=== PATIENT | female | born 1990 | race Caucasian/White ===

== ENCOUNTER 2022-09-24 08:00 | Outpatient (OUT) | payer OTHER, SELFPAY ==
--- NOTE | 2022-09-24 08:15 | US_ITS ---
[address] [address] Patient Name: AGUSTIN DEAN MRN: [id number] date: 1990 Sex: F Assigned Patient Location: US Current Patient Location: Accession/Order Number: [id number] Exam Date: 09/24/2022 08:15 Report Date: 09/25/2022 02:11 At the request of: ADELSO PEDERSON Procedure: US pelvis w/ transvaginal EXAMINATION: US pelvis w/ transvaginal HISTORY: Menorrhagia with irregular cycle N92.1 COMPARISON: No relevant comparison available. TECHNIQUE: Transabdominal and/or transvaginal sonographic examination was performed as indicated by examination type. FINDINGS: UTERUS: Short sensation of endometrium at fundus. 1.2 cm hypoechoic mass within fundal myometrium favoring a leiomyoma. Uterus size: 10.1 x 6.6 x 5.3 cm ENDOMETRIUM: Normal homogeneous appearance. Endometrial thickness: 11 mm RIGHT OVARY: Normal size and appearance. Duplex Doppler demonstrates normal waveform and flow; resistive index 0.5. Ovary size: 3.7 x 1.4 x 1.8 cm. LEFT OVARY: Contains a complex cystic area 1.5 cm in diameter. Duplex Doppler demonstrates normal waveform and flow; resistive index 0.6. Ovary size: 4.0 x 1.9 x 2.2 cm. CUL-DE-SAC: Trace amount of free fluid. BLADDER: Unremarkable. OTHER: None. US/US pelvis w/ transvaginal IMPRESSION: 1. Mildly septated uterus. 2. Left ovary contains a 1.5 cm slightly complex cyst; possibly collapsing follicle. 3. Small fundal myometrial leiomyoma. 4. No specific findings to account for patient's symptoms. Electronically authenticated by: CINDY ARECHIGA Date: 09/25/2022 02:11
[2022-09-24 09:10] LABS: Basophils Percent Auto 0.4 % (0.2-2.0); Eosinophils Absolute Auto 0.1 10^3/uL (0.0-0.7); Hematocrit 34.9 % (36.0-48.0); Hemoglobin 12.2 g/dL (12.0-16.0); Immature Granulocytes Abs Auto 0.02 10^3/uL (0.00-0.03); Immature Granulocytes Pct Auto 0.3 % (0.0-0.5); Lymphocytes Absolute Auto 2.4 10^3/uL (1.2-3.8); Lymphocytes Percent Auto 34.4 % (20.5-60.0); Mean Corpuscular Volume 91.6 fL (81.0-99.0); Monocytes Absolute Auto 0.6 10^3/uL (0.3-0.8); Monocytes Percent Auto 8.1 % (1.7-12.0); Neutrophils Absolute Auto 3.8 10^3/uL (1.4-6.5); Neutrophils Percent Auto 54.8 % (43.0-75.0); Platelet Count 184 10^3/uL (150-450); Red Blood Count 3.81 10^6/uL (4.20-5.40); Red Cell Distribution Width 12.1 % (11.0-15.0)
[2022-09-24 09:25] LABS: Estimated Average Glucose 97 mg/dL
[2022-09-24 09:27] LABS: INR 1.04; Partial Thromboplastin Time 27.4 sec (22.3-36.2)
[2022-09-24 09:45] LABS: HCG Quantitative <1 mIU/mL; Thyroid Stimulating Hormone 1.204 uIU/mL (0.358-3.740)
== END 2022-09-24 08:01 | disposition home or self-care (01) ==
PROVIDERS: PCP Obstetrics & Gynecology; Visit Provider Obstetrics & Gynecology
DX: N92.1 Excessive and frequent menstruation with irregular cycle (principal)
CPT/HCPCS: 36415; 76830; 76856; 83036; 84443; 84702; 85025; 85610; 85730

== ENCOUNTER 2022-11-23 19:14 | Outpatient (REF) | payer OTHER, SELFPAY ==
[2022-11-29 11:09] LABS: Age Gdln ACOG Testing Note (.); HPV Aptima Negative (Negative); IGP, Aptima HPV, rfx 16/18,45 Note (.)
== END 2022-11-23 19:15 | disposition home or self-care (01) ==
LOC: LAB 19:14
PROVIDERS: PCP Obstetrics & Gynecology; Visit Provider Obstetrics & Gynecology
DX: Z01.419 Encounter for gynecological examination (general) (routine) without abnormal findings (principal)
CPT/HCPCS: 87624; G0145

== ENCOUNTER 2023-11-29 19:13 | Outpatient (REF) | payer OTHER, SELFPAY ==
[2023-12-07 04:08] LABS: Age Gdln ACOG Testing Note (.); HPV Aptima Positive (Negative); HPV Genotype 16 Positive (Negative); HPV Genotype 18,45 Negative (Negative); IGP, Aptima HPV, rfx 16/18,45 Note (.)
== END 2023-11-29 19:14 | disposition home or self-care (01) ==
LOC: LAB 19:13
PROVIDERS: PCP Obstetrics & Gynecology; Visit Provider Obstetrics & Gynecology
DX: Z01.419 Encounter for gynecological examination (general) (routine) without abnormal findings (principal)
CPT/HCPCS: 87624; 88175

== ENCOUNTER 2024-12-02 20:13 | Outpatient (REF) | payer OTHER, SELFPAY ==
--- OUTSIDE RECORDS SUMMARY | 2024-12-02 20:16 | XMS_ITS | CCD ---
Author Organization [facility] Care Team Providers Care [place] [employer] Name Role Phone NGOZI SOLIS Attending Unavailable NGOZI SOLIS Consulting Unavailable NGOZI SOLIS Admitting Unavailable Sobeida Claire Unavailable Ky Fox MD Primary Care Provider [phone] DYANA ALEJO Attending Unavailable Shoaib STUDIO HAND-TRUCK SUPERVISOR, Jered L Primary Care Provider SHOAIB, JERED L Referring Unavailable SHOAIB, JERED L Primary Care Unavailable SHOAIB, JERED L Primary Care Unavailable ARSALAN BURCIAGA Attending Unavailable SHOAIB, JERED L Referring Unavailable SHOAIB, JERED L Primary Care Unavailable SHOAIB, JERED L Referring Unavailable SHOAIB, JERED L Primary Care Unavailable SHOAIB, JERED L Referring Unavailable SHOAIB, JERED L Primary Care Unavailable SHOAIB, JERED L Referring Unavailable SHOAIB, JERED L Primary Care Unavailable Shoaib STUDIO HAND-TRUCK SUPERVISOR, Jered L Primary Care Provider SHOAIB, JERED L Attending Unavailable SHOAIB, JERED L Referring Unavailable SHOAIB, JERED L Primary Care Unavailable SHOAIB, JERED L Attending Unavailable SHOAIB, JERED L Referring Unavailable SHOAIB, JERED L Primary Care Unavailable SHOAIB, JERED L Attending Unavailable SHOAIB, JERED L Referring Unavailable SHOAIB, JERED L Primary Care Unavailable Ky Fox MD Primary Care Provider Allergies Allergy Classification Reported Allergen(s) Allergy Type Date of Onset Reaction(s) Facility (4 sources) Penicillins; Translations: [PENICILLINS] Drug allergy (disorder) 4 [facility] (8 sources) Penicillin G Drug Allergy 2 unknown [facility] Work Phone: (7 sources) Penicillins Propensity to adverse reactions 3 [facility] (6 sources) Penicillin; Translations: [PENICILLIN] Drug Allergy 2 [facility] Work Phone: (2 sources) Penicillins Propensity to adverse reactions to drug 2 [facility] [place] [facility] (1 source) Penicillins Propensity to adverse reactions to drug 2 [facility] Medications Current Medications Medication Drug Class(es) Dates Sig (Normalized) Sig (Original) levonorgestrel 0.842179 mg/hr intrauterine system (9 sources) Progestin, Progestin-containi ng Intrauterine Device Start: 11-23-2022 Levonorgestrel intrauterine device 52 mg levonorgestreL ( MIRENA) 21 mcg/24hr (up to 8 yrs) 52 mg IUD 1 each by intrauterine route once. Inserted Nov Active lidocaine 0.05 mg/mg medicated patch (3 sources) Antiarrhythmic, Amide Local Anesthetic Start: 02-01-2024 apply 1 dose transdermal route once daily, then apply 1 dose transdermal route every twelve hours lidocaine (LIDODERM) 5 % Place 1 patch on the skin daily. Remove & Discard patch within 12 hours or as directed by MD 30 patch 02/01/2024 Active naproxen sodium 550 mg oral tablet (1 source) Nonsteroidal Anti-inflammatory Drug Start: 02-01-2024 End: 02-16-2024 take 1 tablet by mouth once in the morning, then take 1 tablet by mouth at mealtime naproxen sodium (ANAPROX DS) 550 mg tablet Take 1 tablet (550 mg total) by mouth in the morning and 1 tablet (550 mg total) in the evening. Take with meals. Do all this for 30 doses. 30 tablet 02/01/2024 02/16/2024 Active 12 hr orphenadrine citrate 100 mg extended release oral tablet (1 source) Muscle Relaxant Start: 02-01-2024 End: 02-16-2024 take 1 tablet by mouth in the morning, then take 1 tablet by mouth every twelve hours at bedtime orphenadrine (NORFLEX) 100 mg 12 hr tablet Take 1 tablet (100 mg total) by mouth in the morning and 1 tablet (100 mg total) before bedtime. Do all this for 30 doses. 30 tablet 02/01/2024 02/16/2024 Active Problems Active Problems Problem Classification Problem Date Documented Date Episodic/Chronic Abdominal pain (2 sources) Suprapubic pain; Translations: [Pelvic and perineal pain] Onset: 07-25-2024 07-26-2024 Episodic Genitourinary symptoms and ill-defined conditions (5 sources) Urinary symptoms ; Translations: [Unspecified symptoms and signs involving the genitourinary system] Onset: 11-03-2021 11-03-2021 Episodic Other skin disorders (2 sources) Multiple skin tags; Translations: [Other hypertrophic disorders of the skin] 03-05-2024 Episodic Unclassified (1 source) Low back pain, unspecified; Translations: [Low back pain, unspecified] Onset: 03-01-2024 Unclassified (1 source) Annual Exam Onset: 03-01-2024 Urinary tract infections (1 source) Urinary tract infectious disease Onset: 07-25-2024 Episodic Past or Other Problems Problem Classification Problem Date Documented Da te Episodic/Chronic Fracture of lower limb (1 source) Fracture of unspecified metatarsal bone(s), left foot, subsequent encounter for fracture with routine healing Onset: 04-06-2021 Resolved: 04-06-2021 Episodic Immunizations and screening for infectious disease (6 sources) Contact with and (suspected) exposure to other viral communicable diseases; Translations: [Influenza vaccination given] Onset: 01-15-2020 03-01-2024 Episodic Inflammatory diseases of female pelvic organs (3 sources) Vaginitis; Translations: [Acute vaginitis] Onset: 11-03-2021 11-03-2021 Episodic Mood disorders (2 sources) Mood disorders Onset: 03-01-2024 Resolved: 07-25-2024 03-01-2024 Other connective tissue disease (1 source) Pain in left foot Onset: 04-06-2021 Resolved: 04-06-2021 Episodic Other screening for suspected conditions (not mental disorders or infectious disease) (2 sources) Patient encounter status; Translations: [Encounter for screening for malignant neoplasm of skin] Onset: 03-01-2024 03-01-2024 Episodic Other skin disorders (1 source) Other hypertrophic disorders of the skin; Translations: [Other hypertrophic disorders of the skin] Onset: 03-01-2024 Episodic Spondylosis; intervertebral disc disorders; other back problems (7 sources) Acute back pain with sciatica; Translations: [Lumbago with sciatica, right side] Onset: 02-01-2024 02-05-2024 Episodic Unclassified (1 source) Patient encounter status 03-05-2024 Results Test Name Value Interpretation Reference Range Facility POCT , urineon 07-14 Beta HCG ( test) Ql (U) Negative [facility] POCT urinalysis dipstick onl yon 07-25-2024 Appearance (U) clear [facility] External Poct Urine Bilirubin Negative [facility] External Poct Urine Blood Negative [facility] External Poct Urine Color yellow [facility] External Poct Urine Glucose Negative [facility] External Poct Urine Ketones Negative [facility] External Poct Urine Leukocyte Esterase Negative [facility] External Poct Urine Nitrite Negative [facility] External Poct Urine Ph 7 Pr [facility] External Poct Urine Protein Negative [facility] External Poct Urine Specific [place] 1.015 [facility] External Poct Urine Urobilinogen 0.2 [facility] COMPREHENSIVE METABOLIC PANE João 03-01-2024 Albumin [Mass/Vol] 4.5 g/dL Normal 3.2-5.3 [facility] Comment on above: Performed By: #### Jenny MEDINA, 25610-7 #### [facility] ([id number]) [address], [address] [place] [address] ALP [Catalytic activity/Vol] 45 U/L Normal 39-130 [facility] Comment on above: Performed By: #### Jenny MEDINA, 84666-9 #### [facility] ([id number]) [address], [address] [place] [address] ALT [Catalytic activity/Vol] 12 U/L Normal 0-31 [facility] Comment on above: Performed By: #### Jenny MEDINA, 18744-4 #### [facility] ([id number]) [address], [address] [place] [address] Anion gap [Moles/Vol] 9 mmol/L Normal 5-15 [facility] Comment on above: Performed By: #### Jenny MEDINA, 72164-1 #### [facility] ([id number]) [address], [address] [place] [address] AST [Catalytic activity/Vol] 19 U/L Normal 0-41 [facility] Comment on above: Performed By: #### Jenny MEDINA, 75209-7 #### [facility] ([id number]) [address] [place] [address] Bilirubin [Mass/Vol] 0.7 mg/dL Normal 0.3-1.2 [facility] Comment on above: Performed By: #### Jenny MEDINA 94006-9 #### [facility] ([id number]) [address] [place] [address] Calcium [Mass/Vol] 9.6 mg/dL Normal 8.5-10.5 [facility] Comment on above: Performed By: #### Jenny MEDINA 65640-0 #### [facility] ([id number]) [address] [place] [address] Chloride [Moles/Vol] 106 mmol/L Normal 98-109 [facility] Comment on above: Performed By: #### Jenny MEDINA 84608-0 #### [facility] ([id number]) [address], [address] [place] [address] CO2 [Moles/Vol] 25 mmol/L Normal 22-32 [facility] Comment on above: Performed By: #### Jenny MEDNIA, 16267-5 #### [facility] ([id number]) [address] [place] [address] Creatinine [Mass/Vol] 0.69 mg/dL Normal 0.40-1.00 [facility] Comment on above: Result Comment: METH OD TRACEABLE TO IDMS STANDARD Performed By: #### Jenny MEDINA, 43212-6 #### [facility] ([id number]) [address], [address] [place] [address] eGFR (CKD-EPI) NON-RACE DEPENDENT >90 Normal >59 [facility] Comment on above: Result Comment: Reported eGFR is based on the CKD-EPI 2020 equation that does not use a race coefficient. Performed By: #### Jenny MEDINA, 36667-1 #### [facility] ([id number]) [address], [address] [place] [address] Glucose [Mass/Vol] 80 mg/dL Normal 65-99 [facility] Comment on above: Performed By: #### Jenny MEDINA 10099-4 #### [facility] ([id number]) [address], [address] [place] [address] Potassium [Moles/Vol] 3.9 mmol/L Normal 3.5-5.0 [facility] Comment on above: Performed By: #### Jenny MEDINA, 31837-4 #### [facility] ([id number]) [address], [address] [place] [address] Protein [Mass/Vol] 6.8 g/dL Normal 6.0-8.0 [facility] Comment on above: Performed By: #### Jenny MEDINA 25321-9 #### [facility] ([id number]) [address], [address] [place] [address] Sodium [Moles/Vol] 140 mmol/L Normal 134-146 [facility] Comment on above: Performed By: #### Jenny MEDINA 96778-0 #### [facility] ([id number]) [address], [address] [place] [address] Urea nitrogen [Mass/Vol] 18 mg/dL Normal 5-23 [facility] Comment on above: Performed By: #### Jenny MEDINA 22363-5 #### [facility] ([id number]) [address] [address] [facility] [facility] [address] [place] [address] Comprehensive metabolic pane joão 03-01-2024 Albumin [Mass/Vol] 4.5 g/dL 3.2 - 5.3 g/dL [facility] ALP [Catalytic activity/Vol] 45 U/L 39 - 130 U/L [facility] ALT No additional P-5'-P [Catalytic activity/Vol] 12 U/L 0 - 31 U/L [facility] Anion gap [Moles/Vol] 9 mmol/L 5 - 15 mmol/L [facility] AST [Catalytic activity/Vol] 19 U/L 0 - 41 U/L [facility] Bilirubin [Mass/Vol] 0.7 mg/dL 0.3 - 1 .2 mg/dL [facility] Calcium [Mass/Vol] 9.6 mg/dL 8.5 - 10. 5 mg/dL [facility] Chloride [Moles/Vol] 106 mmol/L 98 - 10 9 mmol/L [facility] CO2 [Moles/Vol] 25 mmol/L 22 - 32 mmol/L [facility] Creatinine [Mass/Vol] 0.69 mg/dL 0.40 - 1.00 mg/dL [facility] Comment on above: METHOD TRACEABLE TO IDID STANDARD eGFR (CKD-EPI)non-race dependent - PINF [facility] Comment on above: Reported eGFR is based on the CKD-EPI 2020 equation that does not use a race coefficient. Glucose [Mass/Vol] 80 mg/dL 65 - 99 mg/dL [facility] Potassium [Moles/Vol] 3.9 mmol/L 3.5 - 5.0 mmol/L [facility] Protein [Mass/Vol] 6.8 g/dL 6.0 - 8.0 g/dL [facility] Sodium [Moles/Vol] 140 mmol/L 134 - 146 mmol/L [facility] Urea nitrogen [Mass/Vol] 18 mg/dL 5 - 23 mg/dL [facility] Lipid 1996 panelon Cholesterol [Mass/Vol] 171 mg/dL 150 - 200 mg/dL [facility] Cholesterol in HDL [Mass/Vol] 68 mg/dL 39 - PINF mg/dL [facility] Comment on above: HDL <40 mg/dL - High Risk HDL > or = 40mg/dL- Desirable HDL >60 mg/dL - Negative Risk Cholesterol in LDL [Mass/Vol] 98 mg/dL NINF - 130 mg/dL [facility] Comment on above: LDL <100 mg/dL - Desirable LDL >160 mg/dL - High Risk Cholesterol in VLDL [Mass/Vol] 5 mg/dL 0 - 30 mg/dL [facility] Cholesterol.total/Chol esterol in HDL [Mass ratio] 2.5 {ratio} 1.0 - 5.0 [facility] Triglyceride [Mass/Vol] 27 mg/dL 27 - 150 mg/dL [facility] Cholesterol [Mass/Vol] 171 mg/dL Normal 150-200 [facility] Comment on above: Performed By: [place], [address]-2 #### [facility] ([id number]) [address] [place] [address] Cholesterol in HDL [Mass/Vol] 68 mg/dL Normal >39 [facility] Comment on above: Result Comment: HDL <40 mg/dL - High Risk HDL > or = 40mg/dL- Desirable HDL >60 mg/dL - Negative Risk Performed By: ###[place], [address]-8 #### [facility] ([id number]) [address] [facility] [address] [place] [address] Cholesterol in LDL [Mass/Vol] 98 mg/dL Normal <130 [facility] Comment on above: Result Comment: LDL <100 mg/dL - Desirable LDL >160 mg/dL - High Risk Performed By: #### C ADAM, 17475-9 #### [facility] ([id number]) [address], [facility] [address] [place] [address] Cholesterol in VLDL [Mass/Vol] 5 mg/dL Normal 0-30 [facility] Comment on above: Performed By: #### Jenny MEDINA, 73448-6 #### [facility] ([id number]) [address] [address] [place] [address] CHOLESTEROL:HDL 2.5 Normal 1.0-5.0 [facility] Comment on above: Performed By: #### Jenny MEDINA, 55329-1 #### [facility] ([id number]) [address], [facility] [address] [place] [address] Triglyceride [Mass/Vol] 27 mg/dL Normal 27-150 [facility] Comment on above: Performed By: #### Jenny MEDINA, 94171-9 #### [facility] ([id number]) [address], [address] [address] No Panel Informationon 03-01 [facility] XR Lumbar spine 2 or 3 Views on 02-02-2024 EXAM: XR SPINE LUMBAR 2 OR 3 VWS CLINICAL INFORMATION: Acute right-sided low back pain with right-sided sciatica. COMPARISON: None. FINDINGS: The lumbar spine maintains a normal lordotic curvature. There is no malalignment within the lumbar spine. There is no significant loss of the vertebral body heights. There is no evidence for an acute displaced fracture. There is localized mild loss of the L5-S1 disc space height. IMPRESSION: 1. No evidence for an acute displaced fracture of the lumbar spine. 2. Localized mild loss of the L5-S1 disc space height. Finalized by Srinath Myrick MD on 02/02/2024 1:24 PM [facility] Srinath Myrick MD - 02/02/2024 EXAM: XR SPINE LUMBAR 2 OR 3 VWS CLINICAL INFORMATION: Acute right-sided low back pain with right-sided sciatica. COMPARISON: None. FINDINGS: The lumbar spine maintains a normal lordotic curvature. There is no malalignment within the lumbar spine. There is no significant loss of the vertebral body heights. There is no evidence for an acute displaced fracture. There is localized mild loss of the L5-S1 disc space height. IMPRESSION: 1. No evidence for an acute displaced fracture of the lumbar spine. 2. Localized mild loss of the L5-S1 disc space height. Finalized by Srinath Myrick MD on 02/02/2024 1:24 PM [facility] Study observation (narrative) [facility] XR Lumbar spine 2 or 3 Views Ordered By: Srinath Myrick on 02-02-2024 [facility] Work Phone: XR SPINE LUMBAR 2 OR 3 VWSon 02-02-2024 XR SPINE LUMBAR 2 OR 3 VWS XR SPINE LUMBAR 2 OR 3 VWS EXAM: XR SPINE LUMBAR 2 OR 3 VWS CLINICAL INFORMATION: Acute right-sided low back pain with right-sided sciatica. COMPARISON: None. FINDINGS: The lumbar spine maintains a normal lordotic curvature. There is no malalignment within the lumbar spine. There is no significant loss of the vertebral body heights. There is no evidence for an acute displaced fracture. There is localized mild loss of the L5-S1 disc space height. IMPRESSION: 1. No evidence for an acute displaced fracture of the lumbar spine. 2. Localized mild loss of the L5-S1 disc space height. Finalized by Srinath Myrick MD on 02/02/2024 1:24 PM Normal [facility] HCG ( test) Ql (U)o n 02-01-2024 Beta HCG ( test) Ql (U) Negative Normal NEG [facility] Comment on above: Performed By: #### 2 106-3 #### [facility] ([id number]) [address] [place] [address] [place] [address] URN MACROSCOPIC NURon 2023 BILIRUBIN CHRIS Negative Normal NEG [facility] Comment on above: Performed By: #### N UM #### [facility] ([id number]) [address] [place] [address] [place] [address] BLOOD/HGB CHRIS Negative Normal NEG [facility] Comment on above: Performed By: #### N UM #### [facility] ([id number]) [address] [place] [address] [place] [address] GLUCOSE CHRIS Negative Normal NEG [facility] Comment on above: Performed By: #### N UM #### [facility] ([id number]) [address] [place] [address] [place] [address] KETONES CHRIS Negative Normal NEG [facility] Comment on above: Performed By: #### N UM #### [facility] ([id number]) [address] [place] [address] [place] [address] LEUKOCYTE ESTERASE CHRIS Negative Normal NEG [facility] Comment on above: Performed By: #### N UM #### [facility] ([id number]) [address] [place] [address] [place] [address] NITRITE CHRIS Negative Normal NEG [facility] Comment on above: Performed By: #### N UM #### [facility] ([id number]) [address] [place] [address] [place] [address] PH CHRIS 7.0 Normal 5.0-8.5 [facility] Comment on above: Performed By: #### N UM #### [facility] ([id number]) [address] [place] [address] [place] [address] PROTEIN CHRIS Negative Normal NEG [facility] Comment on above: Performed By: #### N UM #### [facility] ([id number]) [address] [place] [address], [place] [address] SPECIFIC GRAVITY CHRIS 1.015 Normal 1.003-1.035 [facility] Comment on above: Performed By: #### N UM #### [facility] ([id number]) [address] [facility], [place] [address] UROBILINOGEN CHRIS 0.2 eu/dL Normal <1.1 [facility] Comment on above: Performed By: #### N UM #### [facility] ([id number]) [address] [facility], [place] [address] IGP,APTIMA HPV,AGE GDLNon AGE GDLN ACOG TESTING Note . [facility] Comment on above: TESTS RESULT FLAG UN ITS REF RANGE LAB Clinician Provided Cytology Information Source.............Cervix;Endocervix No. of containers..01 ThinPrep Vial Age Algo ACOG Clari... FLAG LEGEND: L-Low Normal,H-High Normal,LL-Alert Low,HH-Alert High <-Panic Low,>-Panic High,A-Abnormal,AA-Critical Abnormal Performed at: 01 =[address] [facility] [place] [address] Fany Adair MD, HPV APTIMA Positive Abnormal Negative [facility] Comment on above: This nucleic acid am plification test detects fourteen high- risk HPV types (16,18,31,33,35,39,45,51,52,56,58,59,66,68) without differentiation. HPV GENOTYPE 16 Positive Abnormal Negative [facility] HPV GENOTYPE 18,45 Negative Negative [facility] Comment on above: Performed at: =G - [facility] [address] [id number] [employer]: Fany Adair MD, Phone: [phone] Performed at: WB - [facility] [address] [id number] [employer]: Fany Adair MD, Phone: [phone] IGP, APTIMA HPV, RFX 16/18,45 Note . [facility] Comment on above: TESTS RESULT FLAG U NITS REF RANGE LAB DIAGNOSIS: 02 NEGATIVE FOR INTRAEPITHELIAL LESION OR MALIGNANCY. Specimen adequacy: 02 Satisfactory for evaluation. Endocervical and/or squamous metaplastic cells (endocervical component) are present. Performed by: Pedro Joseph, Air Traffic Coordinator (ASCP) . 02 Note: Note 02 The Pap smear is a screening test designed to aid in the detection of premalignant and malignant conditions of the uterine cervix. It is not a diagnostic procedure and should not be used as the sole means of detecting cervical cancer. Both false-positive and false-negative reports do occur. Test Methodology: Note 02 This liquid based ThinPrep(R) pap test was screened with the use of an image guided system. HPV Genotype Reflex Note 02 Criteria met, see HPV Genotype results. FLAG LEGEND: L-Low Normal,H-High Normal,LL-Alert Low,HH-Alert High <-Panic Low,>-Panic High,A-Abnormal,AA-Critical Abnormal Performed at: [address] [address] Fany Adair MD, Interpretation and review of laboratory results Abnormal [facility] BRUSH-SPATULA CERVIX ENDOCERVIX [facility] No Panel InformationOrdered By: Lulu Gaona on 11-29-2023 Interpretation and review of laboratory results Abnormal [facility] XR foot LT min 3V*on 022 XR foot LT min 3V* [facility] [place] [address] XRay Report Signed Patient: Jeannine Raygoza MR#: [id number] 39 : 1990 Acct:[id number] Age/Sex: 30 / F ADM Date: 04/06/21 Loc: [facility] Room: Type: [facility] Attending Dr: Sobeida MARIE Ordering Provider: LAZARO Jara Date of Service: 04/06/21 XR/XR foot LT min 3V*: Closed fracture of base of metatarsal bone of left foot with Copies to: LAZARO Jara XR foot LT min 3V* 04/06/2021 8:28 AM SIGNS AND SYMPTOMS: Status post left foot fifth metatarsal fracture, follow-up PROTOCOL: Frontal, lateral, and oblique radiographs of the left foot COMPARISON: 03/16/2021 FINDINGS: There is redemonstration of a tiny bony fragment separate from the tip of the base of the fifth metatarsal with mild bony bridging suggesting slight interval healing. There is decreasing soft tissue swelling over the lateral aspect of the foot. XR/XR foot LT min 3V* IMPRESSION: There is redemonstration of a tiny bony fragment separate from the tip of the base of the fifth metatarsal with mild bony bridging suggesting slight interval healing. Impression dictated by: Angel Blacmkon M.D.04/06/2021 12:19 PM Dictation Location: [place] [address] Transcribed By: [facility] 04/06/21 1219 Dictated By: Angel Blackmon II, MD 04/06/21 1215 Signed By: 04/06/21 121 Normal [facility] XR foot LT min 3V* [facility] [email or web address] Other XR foot LT min 3V* [facility] [employer] Other XR foot LT min 3V* [address] [place] [address] [employer] Other XR foot LT min 3V* [place] [address] [employer] Other XR foot LT min 3V* XRay Report [employer] Other XR foot LT min 3V* Signed [employer] Other XR foot LT min 3V* Patient: Jeannine Raygoza MR#: [id number] [employer] Services Other XR foot LT min 3V* 41 [employer] Other XR foot LT min 3V* : 1990 Acct:[id number] [employer] Other XR foot LT min 3V* Age/Sex: 30 / F ADM Date: 04/06/21 [employer] Other XR foot LT min 3V* Loc: [facility] Room: Type: [facility] [employer] Other XR foot LT min 3V* Attending Dr: Sobeida WADDELLC [employer] Other XR foot LT min 3V* Ordering Provider: LAZARO Jara [employer] Other XR foot LT min 3V* Date of Service: 04/06/21 [employer] Other XR foot LT min 3V* XR/XR foot LT min 3V*: Closed fracture of base of metatarsal bone of left [employer] Other XR foot LT min 3V* foot with [employer] Other XR foot LT min 3V* Copies to: MALA Jara-C [employer] Other XR foot LT min 3V* XR foot LT min 3V* 04/06/2021 8:28 AM [employer] Other XR foot LT min 3V* SIGNS AND SYMPTOMS: Status post left foot fifth metatarsal fracture, follow-up [employer] Other XR foot LT min 3V* PROTOCOL: Frontal, lateral, and oblique radiographs of the left foot [employer] Other XR foot LT min 3V* COMPARISON: 03/16/2021 [employer] Other XR foot LT min 3V* FINDINGS: [employer] Other XR foot LT min 3V* There is redemonstration of a tiny bony fragment separate from the tip of the base of the fifth [employer] Other XR foot LT min 3V* metatarsal with mild bony bridging suggesting slight interval healing. There is decreasing soft [employer] Other XR foot LT min 3V* tissue swelling over the lateral aspect of the foot. [employer] Other XR foot LT min 3V* XR/XR foot LT min 3V* [employer] Other XR foot LT min 3V* IMPRESSION: [employer] Other XR foot LT min 3V* metatarsal with mild bony bridging suggesting slight interval healing. [employer] Other XR foot LT min 3V* Impression dictated by: Angel Blackmon M.D.04/06/2021 12:19 PM [employer] Other XR foot LT min 3V* Dictation Location: [place] [address] [employer] Other XR foot LT min 3V* Transcribed By: SUSI 04/06/21 1219 [employer] Other XR foot LT min 3V* Dictated By: Angel Blackmon II, MD 04/06/21 1215 [employer] Other XR foot LT min 3V* Signed By: [employer] Other XR foot LT min 3V* 04/06/21 1219 [facility] [employer] Other XR foot LT min 3V*on 022 XR foot LT min 3V* [facility] [place] [address] [place] [address] XRay Report Signed Patient: Jeannine Raygoza MR#: [id number] 39 : 1990 Acct:[id number] Age/Sex: 30 / F ADM Date: 03/16/21 Loc: [facility] Room: Type: [facility] Attending Dr: Sobeida WADDELLC Ordering Provider: LAZARO Jara Date of Service: 03/16/21 XR/XR foot LT min 3V*: Closed fracture of base of metatarsal bone of left foot, ini Copies to: LAZARO Jara LEFT FOOT - 3 views COMPARISON: Left foot 03/02/2021 Reason for exam: Follow-up left fifth metatarsal fracture. The chip fracture involving the base of the fifth metatarsal is unchanged in alignment and healing when compared to the prior study. No new fractures. No focal soft tissue abnormality. XR/XR foot LT min 3V* IMPRESSION: NO SIGNIFICANT CHANGE IN FRACTURE FINDINGS. Impression dictated by: Vlad Ordonez Jr., D.O.03/16/2021 12:10 PM Dictation Location: [facility] Transcribed By: [facility] 03/16/21 1210 Dictated By: Vlad Ordonez Jr, DO 03/16/21 1209 Signed By: 03/16/21 1210 [facility] XR foot LT min 3V*on 022 XR foot LT min 3V* [facility] [place] [address] XRay Report Signed Patient: Jeannine Raygoza MR#: [id number] 39 : 1990 Acct:[id number] Age/Sex: 30 / F ADM Date: 03/02/21 Loc: [facility] Room: Type: [facility] Attending Dr: Sobeida MARIE Ordering Provider: LAZARO Jara Date of Service: 03/02/21 XR/XR foot LT min 3V*: M79.672 Copies to: LAZARO Jara XR foot LT min 3V* 03/02/2021 8:11 AM SIGNS AND SYMPTOMS: Fall downstairs with pain in the fourth and fifth metatarsals of left foot PROTOCOL: Frontal, lateral, and oblique radiographs of the left foot COMPARISON: None FINDINGS: There is a tiny minimally displaced fracture along the base of the fifth metatarsal. No additional fracture. The joint spaces are preserved. There is mild soft tissue swelling over the lateral aspect of the foot. XR/XR foot LT min 3V* IMPRESSION: There is a tiny minimally displaced fracture along the base of the fifth metatarsal. Impression dictated by: Angel Blackmon M.D.03/02/2021 8:31 AM Dictation Location: [place] [address] Transcribed By: SUSI 03/02/21 0831 Dictated By: Angel Blackmon II, MD 03/02/2130 Signed By: 03/02/2131 [facility] CHLAMYDIA/N. GONORRHOEAE RNA , TMA, UROGENITALon 02-27-2021 CHLAMYDIA TRACHOMATIS RNA, TMA, UROGENITAL Not detected Normal NOT DETECTED [facility] Comment on above: Performed By: #### 1 9550, 87387 #### [facility] [place] [address] Audio Visual Aide: Cheo Cruz MD COMMENT Normal [facility] Comment on above: Result Comment: The analytical performance characteristics of this assay, when used to test SurePath(TM) specimens have been determined by [facility]. The modifications have not been cleared or approved by the FDA. This assay has been validated pursuant to the CLIA regulations and is used for clinical purposes. For additional information, please refer to https://education.[employer].Second Sight/faq/NOS657 (This link is being provided for information/ educational purposes only.) Performed By: #### 1 9550, 43493 #### [facility] [address], [address] [place] [address] Audio Visual Aide: Cheo Cruz MD NEISSERIA GONORRHOEAE RNA, TMA, UROGENITAL Not detected Normal NOT DETECTED [facility] Comment on above: Performed By: #### 1 9550, 58298 #### [facility] [address], [address] [place] [address] Audio Visual Aide: Cheo Cruz MD SURESWAB(R) TRICHOMONAS VAGI NALIS RNA, QL, TMAon 02-27-2021 SURESWAB(R) TRICHOMONAS VAGINALIS RNA, QL, TMA Not detected Normal NOT DETECTED [facility] Comment on above: Result Comment: For additional information, please refer to http://education.[employer].Second Sight/ faq/Trichomonastma (This link is being provided for informational/ educational purposes only.) Performed By: #### 1 9550, 99287 #### [facility] [place] [address] Audio Visual Aide: Cheo Cruz MD CHLAMYDIA/NG RNA,TMA, W/RFL ALT TARGET,UROGENon 02-25-2021 CHLAMYDIA TRACHOMATIS RNA, TMA, UROGENITAL Normal [facility] Comment on above: Result Comment: URIN ALYSIS SAMPLE WAS RECEIVED INSTEAD OF APTIMA TEST NOT PERFORMED No suitable specimen received. Please review the test requirements at [email or web address].[email or web address].Second Sight Performed By: #### 9 1431, 04465, 799 #### [facility] [address], [address] [place] [address] Audio Visual Aide: Cheo Cruz MD #### [id number] #### [facility]/[place] [id number] [facility] [place], [place] Audio Visual Aide: Sharif Conklin M.D.,PhD HEPATITIS C AB W/REFL TO HCV RNA, QN, PCRon 02-25-2021 HEPATITIS C ANTIBODY Non-Reactive Normal NON-REACTIVE [facility] Comment on above: Performed By: #### 9 143, , 799 #### [facility] [address], [address] [place] [address] Audio Visual Aide: Cheo Cruz MD #### [id number] #### [facility]/[place] [id number] [facility] [place], [place] Audio Visual Aide: Sharif Conklin M.D.,PhD INDEX 0.02 Normal <1.00 [facility] Comment on above: Result Comment: HCV antibody was non-reactive. There is no laboratory evidence of HCV infection. In most cases, no further action is required. However, if recent HCV exposure is suspected, a test for HCV RNA (test code 86120) is suggested. For additional information please refer to http://education.[employer]/faq/FJZ47b8 (This link is being provided for informational/ educational purposes only.) Performed By: #### 9 143, 50765, 799 #### [facility] [address], [address] [place], [place] [address] Audio Visual Aide: Cheo Cruz MD #### [id number] #### [facility] [address] [facility] [place], [place] Audio Visual Aide: Sharif Conklin M.D.,PhD HIV 1/2 ANTIGEN/ANTIBODY,FOU RTH GENERATION W/RFLon 02-25-2021 HIV AG/AB, 4TH GEN Non-Reactive Normal NON-REACTIVE [facility] Comment on above: Result Comment: HIV- 1 antigen and HIV-1/HIV-2 antibodies were not detected. There is no laboratory evidence of HIV infection. PLEASE NOTE: This information has been disclosed to you from records whose confidentiality may be protected by state law. If your state requires such protection, then the state law prohibits you from making any further disclosure of the information without the specific written consent of the person to whom it pertains, or as otherwise permitted by law. A general authorization for the release of medical or other information is NOT sufficient for this purpose. For additional information please refer to http://education.[employer]ia.Second Sight/faq/ARZ629 (This link is being provided for informational/ educational purposes only.) The performance of this assay has not been clinically validated in patients less than 2 years old. Performed By: #### 9 143, , 799 #### [facility] [place] [address] Audio Visual Aide: Cheo Cruz MD #### [id number] #### [facility]/[address] [place], [place] Audio Visual Aide: hSarif Conklin M.D.,PhD RPR (MONITOR) W/REFL TITERon 02-25-2021 RPR (MONITOR) W/REFL TITER Non-Reactive Normal NON-REACTIVE [facility] Comment on above: Performed By: #### 9 143, , 799 #### [facility] [address], [address] [place] [address] Audio Visual Aide: Cheo Cruz MD #### [id number] #### [facility]/[address] [place], [place] Audio Visual Aide: Sharif Conklin M.D.,PhD SURESWAB(R) TRICHOMONAS VAGI NALIS RNA, QL, TMAon 02-25-2021 SURESWAB(R) TRICHOMONAS VAGINALIS RNA, QL, TMA Normal [facility] Comment on above: Result Comment: URIN ALYSIS TRANSPORT NOT ACCEPTABLE. TEST NOT PERFORMED No suitable specimen received. Please review the test requirements at [email or web address].[email or web address] Sight Performed By: #### 9 1431, 26873, 799 #### [facility] of [address], [address] [place] [address] Audio Visual Aide: Cheo Cruz MD #### [id number] #### [facility] [address] [facility] [place], [place] Audio Visual Aide: Sharif Conlkin M.D.,PhD [facility] 01-06-2021 Albumin [Mass/Vol] 4.7 g/dL Normal 3.6-5.1 [facility] Comment on above: Performed By: #### 1 0231, 7600 #### [facility] of [place] [address] Audio Visual Aide: Cheo Cruz MD Albumin/Globulin [Mass ratio] 2.1 {ratio} Normal 1.0-2.5 [facility] Comment on above: Performed By: #### 1 0231, 7600 #### [facility] of [place] [address] Audio Visual Aide: Cheo Cruz MD ALP [Catalytic activity/Vol] 51 U/L Normal 31-125 [facility] Comment on above: Performed By: #### 1 0231, 7600 #### [facility] of [address], [address] [place] [address] Audio Visual Aide: Cheo Cruz MD ALT [Catalytic activity/Vol] 15 U/L Normal 6-29 [facility] Comment on above: Performed By: #### 1 0231, 7600 #### [facility] of [place] [address] Audio Visual Aide: Cheo Cruz MD AST [Catalytic activity/Vol] 13 U/L Normal 10-30 [facility] Comment on above: Performed By: #### 1 0231, 7600 #### [facility] of [address] [place] [address] Audio Visual Aide: Cheo Cruz MD Bilirubin [Mass/Vol] 0.5 mg/dL Normal 0.2-1.2 [facility] Comment on above: Performed By: #### 1 0231, 7600 #### [facility] [place] [address] Audio Visual Aide: Cheo Cruz MD BUN/CREATININE RATIO NOT APPLICABLE Normal 6-22 [facility] Comment on above: Performed By: #### 1 023, 7600 #### [facility] [place] [address] Audio Visual Aide: Cheo Cruz MD Calcium [Mass/Vol] 9.8 mg/dL Normal 8.6-10.2 [facility] Comment on above: Performed By: #### 1 023, 7600 #### [facility] [place] [address] Audio Visual Aide: Cheo Cruz MD Chloride [Moles/Vol] 104 mmol/L Normal 98-110 [facility] Comment on above: Performed By: #### 1 023, 7600 #### [facility] [place] [address] Audio Visual Aide: Cheo Cruz MD CO2 [Moles/Vol] 26 mmol/L Normal 20-32 [facility] Comment on above: Performed By: #### 1 023, 7600 #### [facility] [place] [address] Audio Visual Aide: Cheo Cruz MD Creatinine [Mass/Vol] 0.68 mg/dL Normal 0.50-1.[address] [facility] Comment on above: Performed By: #### 1 0231, 7600 #### [facility] of [place] [address] Audio Visual Aide: Cheo Cruz MD eGFR NON-AFR. TURKS AND [place]ER 116 mL/min/1.73m2 Normal > OR = 60 [facility] Comment on above: Performed By: #### 1 0231, 7600 #### [facility] [place] [address] Audio Visual Aide: Cheo Cruz MD GFR/1.73 sq M.predicted among blacks MDRD (S/P/Bld) [Vol rate/Area] 134 mL/min/{1.73_m2} Normal > OR = 60 [facility] Comment on above: Performed By: #### 1 230, 7600 #### [facility] [address], [address] [place] [address] Audio Visual Aide: Cheo Cruz MD Globulin (S) [Mass/Vol] 2.2 g/dL Normal 1.9-3.7 [facility] Comment on above: Performed By: #### 1 230, 7600 #### [facility] [place] [address] Audio Visual Aide: Cheo Cruz MD Glucose [Mass/Vol] 70 mg/dL Normal 65-99 [facility] Comment on above: Result Comment: Fasting reference interval Performed By: #### 1 230, 0 #### [facility] [place] [address] Audio Visual Aide: Cheo Cruz MD Potassium [Moles/Vol] 3.9 mmol/L Normal 3.5-5.3 [facility] Comment on above: Performed By: #### 1 230, 7600 #### [facility] [place] [address] Audio Visual Aide: Cheo Cruz MD Protein [Mass/Vol] 6.9 g/dL Normal 6.1-8.1 [facility] Comment on above: Performed By: #### 1 230, 7600 #### [facility] [place] [address] Audio Visual Aide: Cheo Cruz MD Sodium [Moles/Vol] 137 mmol/L Normal 135-146 [facility] Comment on above: Performed By: #### 1 023, 7600 #### [facility] [address], [address] [place] [address] Audio Visual Aide: Cheo Cruz MD Urea nitrogen [Mass/Vol] 17 mg/dL Normal 7-25 [facility] Comment on above: Performed By: #### 1 0231, 7600 #### [facility] [address], [address] [place] [address] Audio Visual Aide: Cheo Cruz MD LIPID PANEL, [place] [address]-2 Cholesterol [Mass/Vol] 186 mg/dL Normal <200 [facility] Comment on above: Order Comment: FASTI NG:YES FASTING: YES Performed By: #### 1 0231, 7600 #### [facility] [address], [address] [place] [address] Audio Visual Aide: Cheo Cruz MD Cholesterol in HDL [Mass/Vol] 72 mg/dL Normal > OR = 50 [facility] Comment on above: Order Comment: FASTI NG:YES FASTING: YES Performed By: #### 1 023, 7600 #### [facility] [address], [address] [place] [address] Audio Visual Aide: Cheo Cruz MD Cholesterol in LDL [Mass/Vol] 99 mg/dL Normal [facility] Comment on above: Order Comment: FASTI NG:YES FASTING: YES Result Comment: Refe rence range: <100 Desirable range <100 mg/dL for primary prevention; <70 mg/dL for patients with CHD or diabetic patients with > or = 2 CHD risk factors. LDL-C is now calculated using the Jessica calculation, which is a validated novel method providing better accuracy than the Friedewald equation in the estimation of LDL-C. Stephan BEARDEN et al. PAT. 2013;310(19): 1289-6104 (http://education.[employer].Second Sight/faq/MAW682) Performed By: #### 1 023, 7600 #### [facility] [address], [address] [place] [address] Audio Visual Aide: Cheo Cruz MD Cholesterol.total/Chol esterol in HDL [Mass ratio] 2.6 {ratio} Normal <5.0 [facility] Comment on above: Order Comment: FASTI NG:YES FASTING: YES Performed By: #### 1 023, 7600 #### [facility] [place] [address] Audio Visual Aide: Cheo Cruz MD NON HDL CHOLESTEROL 114 mg/dL (calc) Normal <130 [facility] Comment on above: Order Comment: FASTI NG:YES FASTING: YES Result Comment: For patients with diabetes plus 1 major ASCVD risk factor, treating to a non-HDL-C goal of <100 mg/dL (LDL-C of <70 mg/dL) is considered a therapeutic option. Performed By: #### 1 023, 7600 #### [facility] [place] [address] Audio Visual Aide: Cheo Cruz MD Triglyceride [Mass/Vol] 60 mg/dL Normal <150 [facility] Comment on above: Order Comment: FASTI NG:YES FASTING: YES Performed By: #### 1 0231, 7600 #### [facility] [place] [address] Audio Visual Aide: Cheo Cruz MD IMAGE-GUIDED PAP W/AGE BASED SCR PROTOCOLSon 03-13-2020 COMMENT Normal [facility] Comment on above: Result Comment: This order for age-based cervical cancer and STI screening follows ACOG guidelines(PB 168, 140, BOL519). See individual assays for performing site location. Performed By: #### 9 1414, 88735 #### [facility] [address] Audio Visual Aide: Cheo Cruz MD Result Comment: EXPL ANATORY NOTE: The Pap is a screening test for cervical cancer. It is not a diagnostic test and is subject to false negative and false positive results. It is most reliable when a satisfactory sample, regularly obtained, is submitted with relevant clinical findings and history, and when the Pap result is evaluated along with historic and current clinical information. Performed By: #### 9 1431, 66180, 799 #### [facility] [address], [address] [place] [address] Audio Visual Aide: Cheo Cruz MD #### [id number] #### [facility]/[place] [id number] [facility] [place] Audio Visual Aide: Sharif Conklin M.D.,PhD THINPREP TIS PAP AND HPV mRN A E6/E7 REFLEX HPV 16,18/45on 03-13-2020 CLINICAL INFORMATION: Normal [facility] Comment on above: Result Comment: Rout ine exam Performed By: #### 9 1431, 71862, 799 #### [facility] [address], [address] [place] [address] Audio Visual Aide: Cheo Cruz MD #### [id number] #### [facility]/[place] [id number] [facility] [place] Audio Visual Aide: Sharif Conklin M.D.,PhD COMMENT: Normal [facility] Comment on above: Result Comment: This Pap test has been evaluated with computer assisted technology. Performed By: #### 9 1431, 73709, 799 #### [facility] [address], [address] [place] [address] Audio Visual Aide: Cheo Cruz MD #### [id number] #### [facility]/[place] [address] [facility] [address] [place] Audio Visual Aide: Sharif Conklin M.D.,PhD DRIVER COURIER: Normal [facility] Comment on above: Result Comment: [facility], CT(ASCP) CT screening location: [place] [address]. Performed By: #### 9 1431, 02151, 799 #### [facility] [address], [address] [place] [address] Audio Visual Aide: Cheo Cruz MD #### [id number] #### [facility]/[place] [id number] [facility] [address] [place] Audio Visual Aide: Sharif Conklin M.D.,PhD HPV mRNA E6/E7 Not detected Normal Not Detected [facility] Comment on above: Result Comment: This test was performed using the APTIMA HPV Assay ([employer] This assay detects E6/E7 viral messenger RNA (mRNA) from 14 high-risk HPV types (16,18,31,33,35,39,45,51,52,56,58,59,66,68). The analytical performance characteristics of this assay have been determined by [facility]. The modifications have not been cleared or approved by the FDA. This assay has been validated pursuant to the CLIA regulations and is used for clinical purposes. NO COLLECTION DATE RECEIVED. WE HAVE USED THE DATE THE SPECIMEN WAS RECEIVED BY THIS LABORATORY THE COLLECTION DATE. IF THIS IS INCORRECT, PLEASE CONTACT CLIENT SERVICES. PHONE NUMBER: [phone] Performed By: #### 9 143, 61396, 799 #### [facility] [address], [address] [place] [address] Audio Visual Aide: Cheo Cruz MD #### [id number] #### [facility]/[address] [place], [place] Audio Visual Aide: Sharif Conklin M.D.,PhD INTERPRETATION/RESULT: Normal [facility] Comment on above: Result Comment: Nega tive for intraepithelial lesion or malignancy. Performed By: #### 9 143, 20126, 799 #### [facility] [address], [address] [place] [address] Audio Visual Aide: Cheo Cruz MD #### [id number] #### [facility]/[place] [id number] [facility] [place] Audio Visual Aide: Sharif Conklin M.D.,PhD LMP: Normal [facility] Comment on above: Result Comment: None given Performed By: #### 9 143, 17818, 799 #### [facility] [address], [address] [place] [address] Audio Visual Aide: Cheo Cruz MD #### [id number] #### [facility] [address] [facility] [address] [place] Audio Visual Aide: Sharif Conklin M.D.,PhD PREV. BX: Normal [facility] Comment on above: Result Comment: None given Performed By: #### 9 1431, 79244, 799 #### [facility] of [address], [address] [place] [address] Audio Visual Aide: Cheo Cruz MD #### [id number] #### [facility]/[place] [id number] [facility] [address] [place] Audio Visual Aide: Sharif Conklin M.D.,PhD PREV. PAP: Normal [facility] Comment on above: Result Comment: None given Performed By: #### 9 1431, 81457, 799 #### [facility] of [address], [address] [place] [address] Audio Visual Aide: Cheo Cruz MD #### [id number] #### [facility] [address] [place] Audio Visual Aide: Sharif Conklin M.D.,PhD SOURCE: Normal [facility] Comment on above: Result Comment: None given Performed By: #### 9 1431, 39300, 799 #### [facility] of [address], [address] [place], [place] [address] Audio Visual Aide: Cheo Cruz MD #### [id number] #### [facility] [address] [facility] [address] [place] Audio Visual Aide: Sharif Conklin M.D.,PhD STATEMENT OF ADEQUACY: Normal [facility] Comment on above: Result Comment: Sati sfactory for evaluation. Endocervical/transformation zone component absent. Performed By: #### 9 1431, 81012, 799 #### [facility] of [address], [address] [place] [address] Audio Visual Aide: Cheo Cruz MD #### [id number] #### [facility] [address] [facility] [place] [address] Audio Visual Aide: Sharif Conklin M.D.,PhD Cov[facility]19 [facility] ([facility]on Covid-19 NOT DETECTED Normal NOT DETECTED [facility] Comment on above: Result Comment: This test is not yet approved or cleared by the [place] FDA. When there are no FDA-approved or cleared tests available, and other criteria are met, FDA can make tests available under an emergency access mechanism called an Emergency Use Authorization (EUA). The EUA for this test is supported by the [place] of Health and Human Service's (HHS's) declaration that circumstances exist to justify the emergency use of in vitro diagnostics for the detection and/or diagnosis of the virus that causes COVID-19. This EUA will remain in effect (meaning this test can be used) for the duration of the COVID-19 declaration justifying emergency of IVDs, unless it is terminated or revoked by FDA (after which the test may no longer be used). Performed By: #### [facility] #### [facility] [address] [place] [address] Soraya Miller EUA Statement SEE BELOW Normal [facility] Comment on above: Result Comment: This test is not yet approved or cleared by the [place] FDA. When there are no FDA-approved or cleared tests available, and other criteria are met, FDA can make tests available under an emergency access mechanism called an Emergency Use Authorization (EUA). The EUA for this test is supported by the Assistant Track Coach of Health and Human Service?s (HHS?s) declaration that circumstances exist to justify the emergency use of in vitro diagnostics for the detection and/or diagnosis of the virus that causes COVID-19. This EUA will remain in effect (meaning this test can be used) for the duration of the COVID-19 declaration justifying emergency of IVDs, unless it is terminated or revoked by FDA (after which the test may no longer be used). When diagnostic testing is negative, the possibility of a false negative should be considered in the context of a patients recent exposures and the presence of clinical signs and symptoms consistent with SARS-CoV-2. Performed By: #### C TB #### [facility] [address] [address] Soraya Miller Vital Signs Date Time Vital Sign Value Performing Clinician Facility 12-02-2024 15:42-0400 Body mass index (BMI) [Ratio] 24.33 kg/m2 [employer] Work Phone: [facility] 12-02-2024 15:42-0400 Body weight 60.33 kg Dyana Sapna DO Work Phone: [facility] 12-02-2024 15:42-0400 Diastolic blood pressure 80 mm[Hg] [employer] Work Phone: [facility] 12-02-2024 15:42-0400 Systolic blood pressure 120 mm[Hg] [employer] Work Phone: [facility] 07-25-2024 15:22-0400 Body height 157.5 cm Jered Shoaib STUDIO HAND-TRUCK SUPERVISOR Work Phone: [facility] 07-25-2024 15:22-0400 Body mass index (BMI) [Ratio] 24.8 kg/m2 Jered Shoaib STUDIO HAND-TRUCK SUPERVISOR Work Phone: [facility] 07-25-2024 15:22-0400 Body temperature 97.7 [degF] Jered Shoaib STUDIO HAND-TRUCK SUPERVISOR Work Phone: [facility] 07-25-2024 15:22-0400 Body weight 61.51 kg Jered Shoaib STUDIO HAND-TRUCK SUPERVISOR Work Phone: [facility] 07-25-2024 15:22-0400 Diastolic blood pressure 60 mm[Hg] Jered Shoaib STUDIO HAND-TRUCK SUPERVISOR Work Phone: [facility] 07-25-2024 15:22-0400 Heart rate 76 /min Jered Shoaib STUDIO HAND-TRUCK SUPERVISOR Work Phone: [facility] 07-25-2024 15:22-0400 Respiratory rate 18 /min Jeredjules Henry STUDIO HAND-TRUCK SUPERVISOR Work Phone: [facility] 07-25-2024 15:22-0400 SaO2% (BldA) [Mass fraction] 99 % Jeredjules Henry STUDIO HAND-TRUCK SUPERVISOR Work Phone: [facility] 07-25-2024 15:22-0400 Systolic blood pressure 114 mm[Hg] Jeredjules Henry STUDIO HAND-TRUCK SUPERVISOR Work Phone: [facility] 03-01-2024 08:39-0500 Body height 157.5 cm Jeredjules Henry STUDIO HAND-TRUCK SUPERVISOR Work Phone: [facility] 03-01-2024 08:39-0500 Body mass index (BMI) [Ratio] 24.18 kg/m2 Jeredjules Henry STUDIO HAND-TRUCK SUPERVISOR Work Phone: [facility] 03-01-2024 08:39-0500 Body temperature 97.5 [degF] Jeredjules Henry STUDIO HAND-TRUCK SUPERVISOR Work Phone: [facility] 03-01-2024 08:39-0500 Body weight 59.97 kg Jered Henry STUDIO HAND-TRUCK SUPERVISOR Work Phone: [facility] 03-01-2024 08:39-0500 Diastolic blood pressure 60 mm[Hg] Jered Henry STUDIO HAND-TRUCK SUPERVISOR Work Phone: [facility] 03-01-2024 08:39-0500 Heart rate 72 /min Jeredjules Henry STUDIO HAND-TRUCK SUPERVISOR Work Phone: [facility] 03-01-2024 08:39-0500 Respiratory rate 18 /min Jeredjules Henry STUDIO HAND-TRUCK SUPERVISOR Work Phone: [facility] 03-01-2024 08:39-0500 SaO2% (BldA) [Mass fraction] 100 % Jeredjules Henry STUDIO HAND-TRUCK SUPERVISOR Work Phone: [facility] 03-01-2024 08:39-0500 Systolic blood pressure 104 mm[Hg] Jered Henry STUDIO HAND-TRUCK SUPERVISOR Work Phone: [facility] 11-29-2023 14:03-0400 Body mass index (BMI) [Ratio] 25.42 kg/m2 Dyana Sapna DO Work Phone: [facility] 11-29-2023 14:03-0400 Body weight 63.05 kg Dyana Sapna DO Work Phone: [facility] 11-29-2023 14:03-0400 Diastolic blood pressure 80 mm[Hg] Dyana Sapna DO Work Phone: [facility] 11-29-2023 14:03-0400 Systolic blood pressure 120 mm[Hg] Dyana Sapna DO Work Phone: [facility] Healthcare Encounters Encounter Date Encounter Type Care Provider Facility Start: 12-02-2024 End: 12-02-2024 Patient encounter procedure Dyana Sapna DO Work Phone: [facility] Healthcare Work Phone: Start: 12-02-2024 End: 12-02-2024 Periodic preventive med est patient 18-39 yrs Dyana Sapna DO Work Phone: [facility] Comment on above: Well woman exam with routine gynecological exam Start: 12-02-2024 End: 12-02-2024 Bamboo flowsheet Dyana Sapna DO Work Phone: [facility] Start: 12-02-2024 End: 12-02-2024 Bamboo flowsheet Dyana Sapna DO Work Phone: [facility] Start: 07-25-2024 End: 07-25-2024 Office outpatient visit 15 minutes Jered Henry STUDIO HAND-TRUCK SUPERVISOR Work Phone: [facility] Comment on above: Suprapubic pain, acu te (Primary Dx); UTI symptoms Start: 07-25-2024 End: 07-25-2024 ambulatory [facility] Start: 04-15-[address] [facility] Start: 03-18-[address] [facility] Start: 03-01-2024 End: 03-01-2024 ambulatory [facility] Start: 03-01-2024 Encounter for genera l adult medical examination without abnormal findings [facility] Start: 03-01-2024 End: 03-01-2024 Patient encounter status Jered Jean Shoaib STUDIO HAND-TRUCK SUPERVISOR Work Phone: [facility] Start: 03-01-2024 End: 03-01-2024 Periodic preventive med est patient 18-39 yrs Jered Henry STUDIO HAND-TRUCK SUPERVISOR Work Phone: [facility] Comment on above: Wellness examination (Primary Dx); Acute bilateral low back pain without sciatica; Influenza vaccination administered at current visit; Skin cancer screening; Skin tags, multiple acquired Start: 03-01-2024 End: 03-01-2024 ambulatory [facility] Start: 03-01-2024 Encounter for genera l adult medical examination without abnormal findings [facility] Start: 02-05-[address] [facility] Start: 02-02-2024 End: 02-02-2024 ambulatory [facility] Start: 02-01-2024 End: 02-01-2024 Office outpatient visit 15 minutes Jered Henry STUDIO HAND-TRUCK SUPERVISOR Work Phone: [facility] Comment on above: Acute right-sided lo w back pain with right-sided sciatica (Primary Dx) Start: 02-01-2024 End: 02-01-2024 ambulatory [facility] Start: 02-01-2024 End: 02-01-2024 Emergency department patient visit [facility] Start: 11-29-2023 End: 11-29-2023 Bamboo flowsheet Dyana Sapna DO Work Phone: [facility] Start: 11-29-2023 End: 12-07-2023 Bamboo flowsheet Dyana Sapna DO Work Phone: [facility] Start: 11-29-2023 End: 12-07-2023 Clinisync Result Encounter Dyana Sapna DO Work Phone: [facility] Unsolicited Start: 11-29-2023 End: 11-29-2023 Patient encounter procedure Dyana Sapna DO Work Phone: [facility] Work Phone: Start: 11-29-2023 End: 11-29-2023 Periodic preventive med est patient 18-39 yrs Dyana Sapna DO Work Phone: [facility] Comment on above: Well woman exam with routine gynecological exam Start: 11-29-2023 End: 11-29-2023 ambulatory DYANA SAPNA Not Available Start: 04-06-2021 End: 04-06-2021 ambulatory Sobeida Claire Other [employer] Other Start: 04-06-2021 Postop follow up vis it related to original px Sobeida Claire [facility] Start: 01-15-2020 End: 01-16-2020 Patient encounter procedure NGOZI Varghese [facility] Facility: Procedures Date Procedure Procedure Detail Performing Clinician Start: 07-25-2024 End: 07-25-2024 Urnls dip stick/tablet rgnt non-auto w/o micrscp Jered Henry STUDIO HAND-TRUCK SUPERVISOR Work Phone: Start: 07-25-2024 Adult depression scr eening assessment Jered Henry STUDIO HAND-TRUCK SUPERVISOR Work Phone: Start: 03-01-2024 Adult depression scr eening assessment Jered Henry STUDIO HAND-TRUCK SUPERVISOR Work Phone: Start: 11-29-2023 IGP,APTIMA HPV,AGE GDLN Dyana Sapna [employer] Work Phone: Start: 11-29-2023 Microscopic observat ion [Identifier] in Cervix by Cyto stain Dyana Alejo [employer] Work Phone: Start: 11-29-2023 PAP TEST, EXTERNAL Core y Sapna DO Work Phone: Plan of Treatment Date Care Activity Detail Author Start: 03-07-2034 DTaP,Tdap and Td Vaccines (2 - Td or Tdap) DTaP,Tdap and Td Vaccines (2 - Td or Tdap) [facility] Start: 11-28-2026 Screening for malign ant neoplasm of cervix [facility] Start: 07-25-2025 Adult BMI Screening Adult BMI Screen ing [facility] Start: 07-25-2025 Depression Screening Depression Scre ening [facility] Start: 07-25-2025 Tobacco Screening Tobacco Screening [facility] Start: 03-01-2025 Adult BMI Screening Adult [facility] Screen ing [facility] [employer] [facility] Start: 03-01-2025 Depression Screening Depression Scre ening [facility] Start: 01-31-2025 Adult BMI Screening Adult BMI Screen ing [facility] [employer] [facility] Start: 01-31-2025 Tobacco Screening Tobacco Screening [facility] [employer] [facility] Start: 12-02-2024 End: 12-02-2024 Patient encounter procedure [facility] Comment on above: Arrived Start: 10-14-2024 Influenza vaccination P [facility] Start: 07-25-2024 End: 07-26-2025 US Pelvis transvaginal Ultrasound transvaginal non OB Imaging Routine Suprapubic pain, acute Expected: 07/25/2024, Expires: 07/26/2025 [facility] Phone: Comment on above: Expected: 07/25/2024 , Expires: 07/26/2025 Start: 03-01-2024 End: 03-01-2024 Patient encounter procedure 03/01/2024 8:40 AM EST Office Visit [facility] [address] [place] [address] Jered Henry, STUDIO HAND-TRUCK SUPERVISOR [address] [place] [address] [facility] Start: 11-29-2023 End: 11-29-2023 Patient encounter procedure 11/29/2023 2:00 PM EDT Office Visit [facility] [address] [place] [address] Dyana Alejo DO [address] [place] [address] Arrived [facility] Comment on above: Arrived Start: 10-15-2023 Influenza vaccination [facility] Start: 12-25-2020 COVID-19 Vaccine (3 - Pfizer risk series) COVID-19 Vaccine (3 - Pfizer risk series) [facility] Start: 2018 Screening for malign ant neoplasm of cervix [facility] Start: 2009 Screening for malign ant neoplasm of cervix Pap Smear [facility] Start: 09-11-2007 DTaP,Tdap and Td Vaccines (1 - Tdap) DTaP,Tdap and Td Vaccines (1 - Tdap) [facility] Start: 2000 [facility]ening [facility] Cervical or vaginal smear or scraping study Pap Smear Pathology and Cytology Routine Well woman exam with routine gynecological exam Ordered: 11/29/2023 [facility] Work Phone: Comment on above: Ordered: 11/29/2023 Cytology Cervical or vaginal smear or scraping study Pap Smear Pathology and Cytology Routine Well woman exam with routine gynecological exam Ordered: 12/02/2024 [facility] Work Phone: Comment on above: Ordered: 12/02/2024 Human papilloma viru s DNA [Presence] in Unspecified specimen by Probe with amplification HPV DNA probe, amplified Microbiology Routine Well woman exam with routine gynecological exam Ordered: 11/29/2023 [facility] Comment on above: Ordered: 11/29/2023 Human papilloma viru s DNA [Presence] in Unspecified specimen by Probe with amplification HPV DNA probe, amplified Microbiology Routine Well woman exam with routine gynecological exam Ordered: 12/02/2024 [facility] Comment on above: Ordered: 12/02/2024 Immunizations Immunization Date Immunization Notes Care Provider Ria philip 03-01-2024 influenza, seasonal, injectable, preservative free Jered Henry APRNAnaliaTRUCK SUPERVISOR Work Phone: [facility] 03-01-2024 Immunization, In Clinic,; Translations: [Drug or medicament (substance)] Jered Henry STUDIO HAND-TRUCK SUPERVISOR Work Phone: [facility] 03-01-2024 influenza virus vaccine, unspecified formulation Jered Henry STUDIO HANDTRUCK SUPERVISOR Work Phone: [facility] Payers Date Payer Category Payer Managed Care Other (unspecified) [facility] [id number] 2017 Private Health Insurance [id number] 2017 Private Health Insurance [id number] 1988 Unknown [id number] 1988 Unknown [id number] [id number] 1988 Unknown [id number]. [id number] 1988 Unknown [id number]. [id number] 1988 Unknown [id number] [id number]. 2.6 1988 Unknown [id number] [id number]. 2.6 1988 Unknown [id number] [id number]. 2.6 1988 Unknown [id number]. [id number] 1988 Unknown [id number] [id number]. 2.6 1988 Unknown [id number]. 2.6 1988 Unknown [id number] [id number] 1959 Unknown [id number] Social History Date Type Detail Facility Unknown if ever smoked [employer] Other Start: 02-01-2024 End: 07-25-2024 Sex Assigned At [email or web address] Other Tobacco smoking status DEIS Tobacco smoking consumption unknown [facility] Healthcare Start: 1990 Sex assigned at Not on file N [facility] Start: 11-02-2021 Tobacco smoking status [facility] Never smoked tobacco [facility] Start: 11-02-2021 Tobacco use and exposure Smokeless tobacco non-user [facility] Start: 02-01-2024 End: 07-25-2024 Alcoholic beverage intake Lifetime non-drinker (finding) [facility] Start: 02-01-2024 End: 07-25-2024 History of Social function [facility] Start: 04-27-2022 Childcare Unknown [facility] Start: 09-18-2014 Sex Female (finding) [facility] Clinical Notes 04-06-2021 to 12-02-2024 ANDREA Oconnell - 12/02/2024 3:00 PM Georgiana Henry APRN-LINDA - 07/25/2024 3:20 PM JAMESEladio Henry, STUDIO HAND-TRUCK SUPERVISOR - 03/01/2024 8:40 AM Drake Henry, STUDIO HAND-TRUCK SUPERVISOR - 02/01/2024 8:40 AM EST Note Date & Type Note Facility 12-02-2024 History of Present illness Narrative Reason for Appointment: Patient ID: Jeannine Raygoza is a 34 y.o. female who presents for Well Women Visit Patient presents today for Annual Exam. MEDICATIONS No current outpatient medications ALLERGIES Allergies[1] PROBLEMS Active Ambulatory Problems Diagnosis Date Noted No Active Ambulatory Problems Resolved Ambulatory Problems Diagnosis Date Noted No Resolved Ambulatory Problems Past Medical History: Diagnosis Date Human papilloma virus (HPV) vaccine administered Pap smear for cervical cancer screening 2020 HISTORY PAST MEDICAL HISTORY SOCIAL HISTORY Medical History[2] Social History Tobacco Use Smoking status: Not on file Smokeless tobacco: Not on file Substance Use Topics Alcohol use: Not on file Drug use: Not on file FAMILY HISTORY Family History[3] SURGICAL HISTORY Surgical History[4] REVIEW OF SYSTEMS Review of Systems: Review of Systems Constitutional: Negative. HENT: Negative. Eyes: Negative. Respiratory: Negative. Cardiovascular: Negative. Gastrointestinal: Negative. Genitourinary: Negative. Musculoskeletal: Negative. Skin: Negative. Neurological: Negative. All other systems reviewed and are negative. Hematological: Negative. Endocrine: Negative. Allergic/Immunologic: Negative. OBJECTIVE Objective: Physical Exam Constitutional: Appearance: Normal appearance. She is well-developed. Genitourinary: Vulva normal. Right Adnexa: not tender and no mass present. Left Adnexa: not tender and no mass present. No cervical discharge. IUD strings visualized. Breasts: Breasts are soft. Right: Normal. Left: Normal. HENT: Head: Normocephalic. Nose: Nose normal. Mouth/Throat: Mouth: Mucous membranes are moist. Cardiovascular: Rate and Rhythm: Normal rate and regular rhythm. Pulmonary: Effort: Pulmonary effort is normal. Breath sounds: Normal breath sounds. Abdominal: General: Bowel sounds are normal. There is no distension. Palpations: Abdomen is soft. Tenderness: There is no abdominal tenderness. There is no guarding or rebound. Musculoskeletal: General: No swelling. Normal range of motion. Cervical back: Normal range of motion. Right lower leg: No edema. Left lower leg: No edema. Neurological: General: No focal deficit present. Mental Status: She is alert and oriented to person, place, and time. Skin: General: Skin is warm and dry. Psychiatric: Mood and Affect: Mood normal. Behavior: Behavior normal. Vitals and nursing note reviewed. Exam conducted with a music professor present. Vitals: Estimated body mass index is 24.33 kg/m as calculated from the following: Height as of 11/23/22: 5' 2 . Weight as of this encounter: 133 lb. BP: 120/80 No LMP recorded. (Menstrual status: IUD). ASSESSMENT & PLAN ICD-10-CM 1. Well woman exam with routine gynecological exam Z01.419 Pap Smear HPV DNA probe, amplified Orders Placed This Encounter Procedures HPV DNA probe, amplified Annual Wellness Exam: Patient presents today for routine annual exam. Patient states she has no current complaints. Patients vitals were reviewed and within normal limits. Growth and development is noted to be appropriate for age. Menstrual history is noted to be regular with no concerns reported. No mental health concerns was expressed. Pap Smear: Speculum was inserted into the vagina and pap was obtained without difficulty. HPV testing was performed per age guideline. Patient was advised that pap results could take anywhere from 7 to 10 days to receive and our office will reach out to the patient with those once we have them. Patient can also view results via [facility]. I reinforced importance of condom use for STI prevention. Patient declined cultures to be performed with today's visit. Breast Exam: Upon examination, clinical breast exam was noted to be normal. Patient was counseled on breast self-awareness, including the importance of knowing what is normal for her own breasts and promptly reporting any changes such as new lumps, skin dimpling, nipple discharge, or pain. Screening mammogram recommended annually beginning at age 40 or earlier if risk factors are present. Discussed signs and symptoms of breast cancer and when to seek medical attention. Answered all patient questions. Contraceptive Counseling (if applicable): Patient is currently using IUD as a form of contraceptive. Patient IUD Follow Up: Patient is to return to our office in one year for annual exam unless needed otherwise. Documented by ANDREA Oconnell on behalf of: Dyana Alejo DO [1] Allergies Allergen Reactions Penicillin G Penicillins [2] Past Medical History: Diagnosis Date Human papilloma virus (HPV) vaccine administered Pap smear for cervical cancer screening 2020 neg Ngozi Mitchell [3] No family history on file. [4] Past Surgical History: Procedure Laterality Date APPENDECTOMY DILATION AND CURETTAGE TONSILLECTOMY documented in this encounter [facility] 07-25-2024 History of Present illness Narrative [address] [place] [address] Patient: Jeannine Raygoza Date of : 1990 Encounter Date: 07/25/2024 History of Present Illness: The patient is a 33 y.o. female, an established patient, and is here for Chief Complaint Patient presents with Urinary Tract Infection Pt has been feeling nausea and low groin pain right side. Neg preg couple weeks ago. . HPI For the last 2 weeks patient has had increasing Li painful right suprapubic pain. She has an IUD, Mirena placed in 2022 by her OBGYN and this has helped with her heavy periods but has not caused any issues up until this point. She is unable to feel the strings nor does her partner during sexual intercourse. She denies possibility of STIs as she is in a monogamous relationship since December of 2023 and has no vaginal symptoms such as discharge or pain or itchiness. She took a test that was negative at home. She does state she has difficulty urinating or starting her stream at times. She especially noticed the right suprapubic pain when she was lifting weights and had to stop mid lifting due to the intense pain in her right groin/suprapubic area. Patient does have history of ovarian cysts as evidence on ultrasound in the past that was reviewed today. She has a history of 2 pregnancies and 2 miscarriages. Problem List Items Addressed This Visit None Visit Diagnoses Suprapubic pain, acute - Primary Relevant Orders POCT , urine (Completed) Ultrasound transvaginal non OB UTI symptoms Relevant Orders POCT urinalysis dipstick only (Completed) Past Medical, Family, and Social History Update: The following portions of the patient's history were reviewed and updated as appropriate: allergies, current medications, past family history, past medical history, past social history, past surgical history and problem list. Past Medical History: Diagnosis Date Vaginitis Past Surgical History: Procedure Laterality Date APPENDECTOMY DILATION AND CURETTAGE OF UTERUS 2009 Current Outpatient Medications Medication Sig Dispense Refill levonorgestreL (MIRENA) 21 mcg/24hr (up to 8 yrs) 52 mg IUD 1 each by intrauterine route once. Inserted Nov - Fosio lidocaine (LIDODERM) 5 % Place 1 patch on the skin daily. Remove & Discard patch within 12 hours or as directed by MD (Patient not taking: Reported on 07/25/2024) 30 patch 0 No current facility-administered medications for this visit. (All medications reviewed and updated by provider since last office visit or hospitalization) Allergies: Penicillin and Penicillins Tobacco History: Social History Tobacco Use Smoking Status Never Smokeless Tobacco Never (If patient a smoker, smoking cessation counseling offered) Social History: Social History Substance and Sexual Activity Alcohol Use Never Review of Systems: Review of Systems Genitourinary: Positive for difficulty urinating and pelvic pain. Negative for decreased urine volume, dyspareunia, dysuria, enuresis, flank pain, frequency, genital sores, hematuria, menstrual problem, urgency, vaginal bleeding, vaginal discharge and vaginal pain. Neurological: Negative. Psychiatric/Behavioral: Negative. Physical Exam: BP 114/60 (BP Site: Left Arm, BP Postition: Sitting, BP CUFF SIZE: M (9-13 inches)) Pulse 76 Temp 36.5 C (97.7 F) (Oral) Resp 18 Ht 157.5 cm (5' 2.01 ) Wt 61.5 kg (135 lb 9.6 oz) SpO2 99% BMI 24.80 kg/m Physical Exam Vitals reviewed. Electronic Console Display Operator present: Declined music professor for pelvic exam. Constitutional: Appearance: Normal appearance. HENT: Head: Normocephalic and atraumatic. Abdominal: Hernia: There is no hernia in the left inguinal area or right inguinal area. Genitourinary: General: Normal vulva. Exam position: Supine. Urethra: No prolapse. Vagina: Normal. Cervix: No cervical motion tenderness, discharge, friability, lesion, erythema, cervical bleeding or eversion. Uterus: Normal. Adnexa: Left adnexa normal. Right: Tenderness (During bimanual exam) present. No mass or fullness. Left: No mass, tenderness or fullness. Comments: Two strings visualized proximal to cervical os Lymphadenopathy: Lower Body: No right inguinal adenopathy. No left inguinal adenopathy. Neurological: Mental Status: She is alert. Assessment and Plan: Jeannine was seen today for urinary tract infection. Diagnoses and all orders for this visit: Suprapubic pain, acute - POCT , urine - Ultrasound transvaginal non OB; Future UTI symptoms - POCT urinalysis dipstick only Follow-up: Patient's UA was unremarkable, vaginal exam was unremarkable so no sample was taken from vagina, patient declined STI screening today, hCG was negative. IUD strings were present on exam. We will obtain transvaginal ultrasound to rule out pathology such as right ovarian cyst that may be causing her pain and check correct placement of IUD. Follow-up will depend on results of transvaginal ultrasound. KIM LEE APRN-CNP 07/26/24 1219 documented in this encounter [facility] 03-01-2024 History of Present illness Narrative [address] [facility] [address] Patient: Jeannine Raygoza Date of : 1990 Encounter Date: 03/01/2024 History of Present Illness: The patient is a 33 y.o. female, an established patient, and is here for Chief Complaint Patient presents with Annual Exam . HPI Patient is here for her wellness exam and to follow-up on her low back pain for which she was seen on video visit in January. She is using NSAIDs, home exercise plan, lidocaine, muscle relaxant and she had x-ray of lumbar spine. Patient has started physical therapy last Monday. 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 She denies an injury happening at work but her work probably contributed to the low back pain. She also participates in [employer] which could have contributed to the low back pain. With the current measures she is using to control her back pain, the pain is currently at a minimum and tolerable for her. Patient has an IUD, Mirena for control for the last 1-1/2 years. She is in a monogamous relationship and declines STD screening. She had a normal Pap back in November of 2023. Patient is a with 2 D&Cs. Problem List Items Addressed This Visit None Visit Diagnoses Wellness examination - Primary Relevant Orders Lipid profile Comprehensive metabolic panel Acute bilateral low back pain without sciatica Influenza vaccination administered at current visit Relevant Orders FLU VACCINE TS 2023-(6MOS UP)(PF) 45 MCG(15MCG X3)/0.5 ML IM SYRINGE Skin cancer screening Relevant Orders Ambulatory referral to Dermatology (Non-[facility]) Skin tags, multiple acquired Relevant Orders Ambulatory referral to Dermatology (Non-[facility]) Past Medical, Family, and Social History Update: The following portions of the patient's history were reviewed and updated as appropriate: allergies, current medications, past family history, past medical history, past social history, past surgical history and problem list. Past Medical History: Diagnosis Date Vaginitis Past Surgical History: Procedure Laterality Date APPENDECTOMY DILATION AND CURETTAGE OF UTERUS 2009 Current Outpatient Medications Medication Sig Dispense Refill lidocaine (LIDODERM) 5 % Place 1 patch on the skin daily. Remove & Discard patch within 12 hours or as directed by 30 patch 0 Immunization, In Clinic, Inject into the appropriate muscle once for 1 dose. Sign this order to satisfy the OSBOP Positive ID requirements for immunization orders. levonorgestreL (MIRENA) 21 mcg/24hr (up to 8 yrs) 52 mg IUD 1 each by intrauterine route once. Inserted Nov - No current facility-administered medications for this visit. (All medications reviewed and updated by provider since last office visit or hospitalization) Allergies: Penicillin and Penicillins Tobacco History: Social History Tobacco Use Smoking Status Never Smokeless Tobacco Never (If patient a smoker, smoking cessation counseling offered) Social History: Social History Substance and Sexual Activity Alcohol Use Never Review of Systems: Review of Systems Constitutional: Negative for chills and fever. HENT: Negative for ear pain and sore throat. Eyes: Negative for pain and visual disturbance. Respiratory: Negative for cough and shortness of breath. Cardiovascular: Negative for chest pain and palpitations. Gastrointestinal: Negative for abdominal pain and vomiting. Genitourinary: Negative for dysuria and hematuria. Musculoskeletal: Positive for back pain. Negative for arthralgias. Skin: Negative for color change and rash. Neurological: Negative for seizures and syncope. Psychiatric/Behavioral: Negative. All other systems reviewed and are negative. Physical Exam: BP 104/60 (BP Site: Left Arm, BP Postition: Sitting, BP CUFF SIZE: M (9-13 inches)) Pulse 72 Temp 36.4 C (97.5 F) (Oral) Resp 18 Ht 157.5 cm (5' 2 ) Wt 60 kg (132 lb 3.2 oz) SpO2 100% BMI 24.18 kg/m Physical Exam Constitutional: Appearance: Normal appearance. She is well-developed. HENT: Head: Normocephalic and atraumatic. Right Ear: Tympanic membrane, ear canal and external ear normal. Left Ear: Tympanic membrane, ear canal and external ear normal. Nose: Congestion present. Mouth/Throat: Mouth: Mucous membranes are moist. Eyes: Pupils: Pupils are equal, round, and reactive to light. Cardiovascular: Rate and Rhythm: Normal rate and regular rhythm. Heart sounds: Normal heart sounds. No murmur heard. Pulmonary: Effort: Pulmonary effort is normal. No respiratory distress. Breath sounds: Normal breath sounds. No wheezing. Abdominal: General: Bowel sounds are normal. Palpations: Abdomen is soft. Tenderness: There is no abdominal tenderness. Musculoskeletal: General: Normal range of motion. Cervical back: Neck supple. Lumbar back: Normal. No tenderness. Normal range of motion. Negative right straight leg raise test and negative left straight leg raise test. Right lower leg: No edema. Left lower leg: No edema. Lymphadenopathy: Cervical: No cervical adenopathy. Skin: General: Skin is warm and dry. Capillary Refill: Capillary refill takes less than 2 seconds. Findings: No rash. Neurological: General: No focal deficit present. Mental Status: She is alert and oriented to person, place, and time. Cranial Nerves: No cranial nerve deficit. Sensory: Sensation is intact. Motor: Motor function is intact. No weakness. Coordination: Coordination is intact. Deep Tendon Reflexes: Reflex Scores: Patellar reflexes are 2+ on the right side and 2+ on the left side. Psychiatric: Mood and Affect: Mood normal. Behavior: Behavior normal. Assessment and Plan: Jeannine was seen today for annual exam. Diagnoses and all orders for this visit: Wellness examination - Lipid profile; Future - Comprehensive metabolic panel; Future Acute bilateral low back pain without sciatica Influenza vaccination administered at current visit - FLU VACCINE TS (6MOS UP)(PF) 45 MCG(15MCG X3)/0.5 ML IM SYRINGE Skin cancer screening - Ambulatory referral to Dermatology ([facility]); Future Skin tags, multiple acquired - Ambulatory referral to Dermatology ([facility]); Future Follow-up: Health maintenance immunizations were discussed and recommendations were made. She would like her influenza vaccine. She would like to have skin cancer screening and skin tags removed with Dermatology. Patient's low back pain has improved with NSAIDs, home exercise plan, lidocaine patches, muscle relaxant and starting physical therapy. Her lumbar x-ray was reviewed with patient today. Follow-up in 1 year or as needed for her back pain. KIM LEE APRN-CNP 03/05/24 1403 documented in this encounter [facility] 02-01-2024 History of Present illness Narrative [address] [place] [address] Patient: Jeannine Raygoza Date of : 1990 Encounter Date: 02/01/2024 History of Present Illness: The patient is a 33 y.o. female, an established patient, and is here for No chief complaint on file. . HPI Patient is a video visit complaining of intermittent lower back pain for the last couple of months. 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 She denies her injury having at work. She feels it may have happened when she was lifting weights at the gym and she felt something in her back pull which was around . Patient has not lifted weight since . She went to the ER today for severe pain a 7/10 and received muscle relaxant, Toradol, Decadron, lidocaine patch. She is not sleeping well due to the pain. She states the pain also radiates down her right leg to her lateral thigh but denies numbness and tingling or weakness or loss of bowel or bladder control. She has also had to wear new work boots which may have contributed to the pain symptoms. Video Visit via Real-time Synchronous Audiovisual Provider Location: [facility] [address] [facility] [address] Patient Location: Patient's home Video Visit Consent Statement: I discussed risks, benefits, and alternatives of a real-time synchronous audiovisual consultation with the patient (and any accompanying persons) including the risks that the patient's personal health details and medical records will be discussed over real-time, synchronous, interactive video/audio/telecommunication technology, the visit will not be recorded without the express consent of both the provider and the patient, and that there are some limitations compared to [id number] evaluations. The patient consented to the presence of additional virtual and/or in-person participants. We elected to proceed. Problem List Items Addressed This Visit None Visit Diagnoses Acute right-sided low back pain with right-sided sciatica - Primary Relevant Orders [facility]-ray spine lumbar 2 or 3 [facility] [place] [place] Past Medical, Family, and Social History Update: The following portions of the patient's history were reviewed and updated as appropriate: allergies, current medications, past family history, past medical history, past social history, past surgical history and problem list. Past Medical History: Diagnosis Date Vaginitis Past Surgical History: Procedure Laterality Date APPENDECTOMY DILATION AND CURETTAGE OF UTERUS 2009 Current Outpatient Medications Medication Sig Dispense Refill lidocaine (LIDODERM) 5 % Place 1 patch on the skin daily. Remove & Discard patch within 12 hours or as directed by MD 30 patch 0 naproxen sodium (ANAPROX DS) 550 mg tablet Take 1 tablet (550 mg total) by mouth in the morning and 1 tablet (550 mg total) in the evening. Take with meals. Do all this for 30 doses. 30 tablet 0 orphenadrine (NORFLEX) 100 mg 12 hr tablet Take 1 tablet (100 mg total) by mouth in the morning and 1 tablet (100 mg total) before bedtime. Do all this for 30 doses. 30 tablet 0 No current facility-administered medications for this visit. (All medications reviewed and updated by provider since last office visit or hospitalization) Allergies: Penicillin and Penicillins Tobacco History: Social History Tobacco Use Smoking Status Never Smokeless Tobacco Never (If patient a smoker, smoking cessation counseling offered) Social History: Social History Substance and Sexual Activity Alcohol Use Never Review of Systems: Review of Systems Constitutional: Positive for activity change. Negative for appetite change and unexpected weight change. Respiratory: Negative. Cardiovascular: Negative. Musculoskeletal: Positive for back pain, gait problem and myalgias. Negative for arthralgias. Physical Exam: There were no vitals taken for this visit. Physical Exam Musculoskeletal: Comments: Patient was able to perform low back range of motion on video and completed it - normal lumbar range of motion. She also perform normal bilateral straight leg raise Neurological: Gait: Gait normal. Assessment and Plan: Diagnoses and all orders for this visit: Acute right-sided low back pain with right-sided sciatica - X-ray spine lumbar 2 or 3 views; Future - [facility] [place], [place]; Future Follow-up: Patient should continue the NSAID, muscle relaxant and lidocaine patches as given in the ER. When she is out of the naproxen she may use 6 800 mg ibuprofen with food every 8 hours as needed. She was given home exercise plan from appointment today. She was given option of either starting formal physical therapy or home exercise plan and she opted for home exercise plan. She would like to proceed with lumbar x-ray. Return to office in 1 month and if pain no better consider formal physical therapy and or further imaging. [id number] 23min KIM LEE APRN-CNP 02/05/24 0746 documented in this encounter [facility] 11-29-2023 History of Present illness Narrative Reason for Appointment: Patient ID: Jeannine Raygoza is a 33 y.o. female who presents for Well Women Visit Patient presents today for Annual Exam. MEDICATIONS No current outpatient medications ALLERGIES Allergies Allergen Reactions Penicillin G Penicillins PROBLEMS Active Ambulatory Problems Diagnosis Date Noted No Active Ambulatory Problems Resolved Ambulatory Problems Diagnosis Date Noted No Resolved Ambulatory Problems Past Medical History: Diagnosis Date Pap smear for cervical cancer screening 2020 HISTORY PAST MEDICAL HISTORY SOCIAL HISTORY Past Medical History: Diagnosis Date Pap smear for cervical cancer screening 2020 neg Ngozi Paula Social History Tobacco Use Smoking status: Not on file Smokeless tobacco: Not on file Substance Use Topics Alcohol use: Not on file Drug use: Not on file FAMILY HISTORY No family history on file. SURGICAL HISTORY Past Surgical History: Procedure Laterality Date APPENDECTOMY DILATION AND CURETTAGE TONSILLECTOMY REVIEW OF SYSTEMS Review of Systems: Review of Systems Constitutional: Negative. HENT: Negative. Eyes: Negative. Respiratory: Negative. Cardiovascular: Negative. Gastrointestinal: Negative. Genitourinary: Negative. Musculoskeletal: Negative. Skin: Negative. Neurological: Negative. All other systems reviewed and are negative. Hematological: Negative. Endocrine: Negative. Allergic/Immunologic: Negative. OBJECTIVE Objective: Physical Exam Constitutional: Appearance: Normal appearance. She is well-developed. Genitourinary: Vulva normal. Breasts: Breasts are soft. Right: Normal. Left: Normal. Cardiovascular: Rate and Rhythm: Normal rate and regular rhythm. Pulmonary: Effort: Pulmonary effort is normal. Breath sounds: Normal breath sounds. Abdominal: General: Bowel sounds are normal. There is no distension. Palpations: Abdomen is soft. Tenderness: There is no abdominal tenderness. There is no guarding or rebound. Musculoskeletal: General: No swelling. Normal range of motion. Right lower leg: No edema. Left lower leg: No edema. Neurological: Mental Status: She is alert and oriented to person, place, and time. Skin: General: Skin is warm and dry. Psychiatric: Mood and Affect: Mood normal. Behavior: Behavior normal. Vitals and nursing note reviewed. Exam conducted with a music professor present. Vitals: Estimated body mass index is 25.42 kg/m as calculated from the following: Height as of 11/23/22: 5' 2 . Weight as of this encounter: 139 lb. BP: 120/80 No LMP recorded. Patient has had an implant. ASSESSMENT & PLAN ICD-10-CM 1. Well woman exam with routine gynecological exam Z01.419 Pap Smear HPV DNA probe, amplified Annual Exam: Patient presents today for an annual exam. Patient states she is doing well and has no complaints. Pap was obtained without difficulty. Orders Placed This Encounter Procedures HPV DNA probe, amplified Follow Up: Patient is to return in one year for annual unless needed otherwise. Documented by Angela Burks LPN on behalf of: Dyana Alejo DO documented in this encounter [facility] 04-06-2021 Evaluation note Encounter Date Diagnosis Assessment Notes Mar, Acute pain of left foot (ICD-10 - M79.672) Mar, Closed fracture of base of metatarsal bone of left foot with routine healing (ICD-10 - S92.302D) Xrays were reviewed with patient in detail. Patient may WBAT in a regular shoe. Patient can return to work on 04/13/2021 with no restictions. Call with any concerns or questions. [employer] Other Evaluation note* Diagnosis Well woman exam with routine gynecological exam Routine gynecological examination [facility] Diagnosis Acute right-sided low back pain with right-sided sciatica- Primary Acute right-sided low back pain with right-sided sciatica [facility] Diagnosis Wellness examination- Primary Acute bilateral low back pain without sciatica Influenza vaccination administered at current visit Skin cancer screening Screening for malignant neoplasm of the skin Skin tags, multiple acquired [facility] Diagnosis Suprapubic pain, acute- Primary UTI symptoms [facility] Diagnosis Well woman exam with routine gynecological exam Routine gynecological examination [facility] - Reported* Type Description Date Surgical History tonsillectomy and adenoidectomy Surgical History appendectomy Hospitalization History see above [employer] Other Instructions* Attachments The following attachments cannot be sent through Care Everywhere. * Back Exercises (Cypriot) * Low Back Pain Discharge Instructions (Cypriot) [facility] Attachments The following attachments cannot be sent through Care Everywhere. * Flu vaccine (Cypriot) [facility] Summary Purpose Family History No Family History Records FoundNo Family History Records FoundNo Family History Records FoundNo Family History Records FoundNo Family History Records FoundNo Family History Records FoundNo Family History Records Found Advance Directives No Advanced Directives Records FoundNo Advanced Directives Records FoundNo Advanced Directives Records FoundNo Advanced Directives Records FoundNo Advanced Directives Records FoundNo Advanced Directives Records FoundNo Advanced Directives Records Found Additional Source Comments INFORMATION SOURCE (unrecogn ized section and content) DATE CREATED AUTHOR 01/21/2020 [facility] DATE CREATED AUTHOR AUTHOR'S ORGANIZ ATION 02/28/2021 [facility] DATE CREATED AUTHOR AUTHOR'S ORGANIZ ATION 04/09/2021 [facility] DATE CREATED AUTHOR AUTHOR'S ORGANIZ ATION 12/02/2023 [facility] EPIC DATE CREATED AUTHOR AUTHOR'S ORGANIZ ATION 03/04/2024 [facility] DATE CREATED AUTHOR AUTHOR'S ORGANIZ ATION 04/23/2024 [facility] DATE CREATED AUTHOR AUTHOR'S ORGANIZ ATION 07/28/2024 [facility] REASON FOR VISIT (unrecogniz ed section and content) Reason Comments Well Women Visit Reason Comments Annual Exam Reason Comments Urinary Tract Infection Pt has been feel ing nausea and low groin pain right side. Neg preg couple weeks ago. Care Teams (unrecognized sec tion and content) [employer] Relationship Specialty Start Date End Date Ky Fox MD [address], [place] [address] PCP - General Family Medicine 09/15/22 [employer] Relationship Specialty Start Date End Date Ky Fox MD [address], [place] [address] PCP - General Family Medicine 09/15/22 [employer] Relationship Specialty Start Date End Date Jered Henry APRN-TRUCK SUPERVISOR [address] [place] [address] PCP - General Family Medicine 12/15/23 [employer] Relationship Specialty Start Date End Date Jered Henry APRN-TRUCK SUPERVISOR [address] [place] [address] PCP - General Family Medicine 12/15/23 [employer] Relationship Specialty Start Date End Date Ky Fox MD PCP - [facility] 09/15/22 [employer] Relationship Specialty Start Date End Date Ky Fox MD PCP - [facility] 09/15/22 FOR RECORDS PERTAINING TO PATIENTS WHO ARE OR HAVE BEEN ENROLLED IN A CHEMICAL DEPENDENCY/SUBSTANCEABUSE PROGRAM, SOME INFORMATION MAY BE OMITTED. This clinical summary was aggregated from multiple sources. Caution should be exercised in using it in the provision of clinical care. This summary normalizes information from multiple sources, and as a consequence, information in this document may materially change the coding, format and clinical context of patient data. In addition, data may be omitted in some cases. CLINICAL DECISIONS SHOULD BE BASED ON THE PRIMARY CLINICAL RECORDS. [facility]. provides no warranty or guarantee of the accuracy or completeness of information in this document.
--- OUTSIDE RECORDS SUMMARY | 2024-12-02 20:17 | XMS_ITS | Encounter Summary ---
Author Organization [employer] Address [id number] [address] [place] [address] Care Team Providers Care Assignment Clerk Name Role Phone Ana Laura Henry LALO-LINDA Primary Care Provider + Encounter Details Date Type Department Care Team (Late Contact Info) Description 09/26/2022 Orders Only [facility] - Family Medicine [address] [place] [address] External, Scanning Provider Social History Tobacco Use Types Packs/Day Years Used Date Smoking Tobacco: Never Smokeless Tobacco: Never Alcohol Use Standard Drinks/Week Comments Never 0 (1 standard drink = 0.6 oz pur e alcohol) Childcare Answer Date Recorded Childcare Unknown 07/25/2018 Employment Answer Date Recorded Employment Unknown 07/25/2018 Comments Unknown Sex and Gender Information Value Date Recorded Sex Assigned at Not on file Legal Sex Female 11:52 AM EDT Gender Identity Not on file Sexual Orientation Not on file documented as of this encounter Plan of Treatment Upcoming Encounters Date Type Department Care Team (Late Contact Info) Description 12/10/2024 3:00 PM EDT Office Visit [facility] Internal [facility] - Family Medicine [address] [place] [id number] Anshul Teague, LALO-STUFFED CASING TIER [address], [facility] [address] [place] [address] documented as of this encounter Procedures Procedure Name Priority Date/Time Associated Diagnosis Comments US PELVIC WITH TRANSVAGINAL Routine 09/24/2022 11:29 AM EDT documented in this encounter Results * Ultrasound pelvic with transvaginal (09/24/2022 11:29 AM EDT) Anatomical Region Laterality Modality Body, Pelvis Ultrasound us Scanning Provider External IMG US ORDERABLES Fin al Result documented in this encounter Visit Diagnoses Not on filedocumented in this encounter Care Teams Assignment Clerk Relationship Specialty Start Date End Date Ana Laura Henry, ASSOCIATE MERCHANDISER-STUFFED CASING TIER [address] [place] [address] PCP - General Family Medicine 12/15/23 documented as of this encounter
--- OUTSIDE RECORDS SUMMARY | 2024-12-02 20:17 | XMS_ITS | Encounter Summary ---
Author Organization [employer] s tem Address [id number] [address] [place] [address] Care Team Providers Care Housekeeping Manager Name Role Phone Ana Laura Henry LALO-HOUSING INSPECTORS Primary Care Provider + Encounter Details Date Type Department Care Team (Late Contact Info) Description 11/02/2021 Orders Only [facility] - Family Medicine [address] [place] [phone] External, Scanning Provider Social History Tobacco Use [...] on file Sexual Orientation Not on file COVID-19 Exposure Response Date Recorded In the last month, have you been in contact with someone who was confirmed or suspected to have Coronavirus / COVID-19? No / Unsure 11/03/2021 11:26 AM EDT documented as of this encounter Plan of Treatment Upcoming Encounters Date Type Department Care Team (Late Contact Info) Description 12/10/2024 3:00 PM EDT [facility] [address] [place] [address] Anshul Teague, WINDOW CUTTER-HOUSING INSPECTORS [address], [address] [address] documented as of this encounter Procedures Procedure Name Priority Date/Time Associated Diagnosis Comments LIPID PROFILE Routine 01/05/2021 documented in this encounter Results * Lipid profile (01/05/2021) External Cholesterol 186 <200 MANUALLY TRANSCRIBED RESULTS External Cholesterol:Hdl 2.6 <5.0 MANUALLY TRANSCRIBED RESULTS External Hdl Cholesterol 72 >50 MANUALLY TRANSCRIBED RESULTS External Ldl (Calc) 99 <100 MANUALLY TRANSCRIBED RESULTS External Triglycerides 60 <150 MANUALLY TRANSCRIBED RESULTS 01/05/2021 us Scanning Provider External LAB BLOOD ORDERABLES Final Result MANUALLY TRANSCRIBED RESULTS documented in this encounter Visit Diagnoses Not on filedocumented in this encounter Care Teams Housekeeping Manager Relationship Specialty Start Date End Date Ana Laura Henry, LALO-HOUSING INSPECTORS [address] [place] [address] PCP - General Family Medicine 12/15/23 documented as of this encounter
--- OUTSIDE RECORDS SUMMARY | 2024-12-02 20:17 | XMS_ITS | Clinical Summary ---
Author Organization [employer] s tem Address [id number] [address] [place] [address] Care Team Providers Care Hides Soaker Name Role Phone Ana Laura Henry LALO-CLIENT REPORTING ASSOCIATE Primary Care Provider + Allergies Active Allergy Reactions Criticality Noted Date Comments Penicillin 11/03/2021 Penicillins 11/02/2021 Medications lidocaine (LIDODERM) 5 % Place 1 patch on the skin daily. Remove & Discard patch within 12 hours or as directed by MD 30 patch Active Additional Information Patient not taking.Reported on 07/25/2024 levonorgestreL (MIRENA) 21 mcg/24hr (up to 8 yrs) 52 mg IUD 1 each by intrauterine route once. Inserted Nov Active Active Problems Problem Noted Date Diagnosed Date Vaginitis 11/03/2021 Symptoms involving urinary system 11/03/2021 Immunizations Immunization Administration Dates Next Due Influenza (IM) Preservative Free 03/01/2024 Family History Medical History Relation Name Comments Hypertension Father No Known Problems Mother Relation Name Status Comments Father Mother Alive Social History Tobacco Use Types Packs/Day Years Used Date Smoking Tobacco: Never Smokeless Tobacco: Never Alcohol Use Standard Drinks/Week Comments Never 0 (1 standard drink = 0.6 oz pur e alcohol) Overall Financial Resource Strain (CARDIA) Answe r Date Recorded How hard is it for you to pa y for the very basics like food, housing, medical care, and heating? Not hard at all 03/01/2024 PHQ-2 Answer Date Recorded Total Score 0 07/25/2024 PRAPARE - Transportation Answer Date Re corded In the past 12 months, has l ack of transportation kept you from medical appointments or from getting medications? No 02/13 In the past 12 months, has l ack of transportation kept you from meetings, work, or from getting things needed for daily living? No 03/01/2024 Housing Instability Answer Date Recorde d Are you worried or concerned that in the next two months you may not have stable housing that you own, rent or stay in as a part of a household? No 03/01/2024 Childcare Answer Date Recorded Childcare Unknown 07/25/2018 Employment Answer Date Recorded Employment Unknown 07/25/2018 Hunger Screening Answer Date Recorded Within the past 12 months we worried whether our food would run out before we got money to buy more. Never True 07/25/2024 Within the past 12 months th e food we bought just didn't last and we didn't have money to get more. Never True 07/25/2024 Comments Unknown Sex and Gender Information Value Date Recorded Sex Assigned at Not on file Legal Sex Female 11:52 AM EDT Gender Identity Not on file Sexual Orientation Not on file Last Filed Vital Signs Vital Sign Reading Time Taken Comments Blood Pressure 114/60 07/25/2024 3:22 PM EDT Pulse 76 07/25/2024 3:22 PM EDT Temperature 36.5 C (97.7 F) 07/25/2024 3:22 PM EDT Respiratory Rate 18 07/25/2024 3:22 PM EDT Oxygen Saturation 99% 07/25/2024 3:22 PM EDT Inhaled Oxygen Concentration - - Weight 61.5 kg (135 lb 9.6 oz) 07/25/2024 3:22 P M EDT Height 157.5 cm (5' 2.01 ) 07/25/2024 3:22 PM ED T Body Mass Index 24.8 07/25/2024 3:22 PM EDT Plan of Treatment Upcoming Encounters Date Type Department Care Team (Late st Contact Info) Description 12/10/2024 3:00 PM EDT Office Visit [facility] - Family Medicine [address] [place] [address] Anshul Teague, KILN HAND-CLIENT REPORTING ASSOCIATE [address], [address] [place] [address] Health Maintenance Due Date Last Done Comments Pap Smear 2009 COVID-19 Vaccine (3 - Pfizer risk series) 12/25/2020 11/27/2020, 10/30/2020 Influenza Vaccine 10/14/2024 03/01/2024 Adult BMI Screening 07/25/2025 07/25/2024 Depression Screening 07/25/2025 07/25/2024 Tobacco Screening 07/25/2025 07/25/2024 DTaP,Tdap and Td Vaccines (2 - Td or Tdap) 03/07/2034 03/07/2024 Medical Devices Not on file Insurance Care Teams Hides Soaker Relationship Specialty Start Date End Date Ana Laura Henry APRN-LINDA [facility] [place] [address] PCP - General Family Medicine 12/15/23
== END 2024-12-02 20:14 | disposition home or self-care (01) ==
LOC: LAB 20:13
PROVIDERS: PCP Obstetrics & Gynecology; Visit Provider Obstetrics & Gynecology
DX: Z01.419 Encounter for gynecological examination (general) (routine) without abnormal findings (principal)
CPT/HCPCS: 87624; 88175

== ENCOUNTER 2024-12-31 15:28 | Outpatient (REF) | payer OTHER, SELFPAY ==
--- OUTSIDE RECORDS SUMMARY | 2024-12-31 13:30 | XMS_ITS | Encounter Summary ---
Author Organization [facility] Address [address] [place] [address] Care Team Providers Care Aircraft Detail Draftsperson Name Role Phone Ky Fox MD Primary Care Provider [phone] Reason for Visit * ReasonCommentsColposcopy Encounter Details DateTypeDepartmentCare Team (Latest Contact Info)Scekqipuctv53/18/2025 1:30 PM ESTProcedure Visit [facility] [address] [place] [phone] Nitin Alejo DO [address] [place]ira [place], [facility] LGSIL of cervix of undetermined significance Social History Tobacco UseTypesPacks/DayYears UsedDateSmoking Tobacco: Never Assessed CommentsNoSex and Gender InformationValueDate RecordedSex Assigned at BirthNot on fileLegal ZmtLkmniz91/15/2023 6:58 PM EDTGender IdentityNot on fileSexual OrientationNot on filedocumented as of this encounter Last Filed Vital Signs Vital SignReadingTime TakenCommentsBlood Bejgjjmn350/6812/31/2024 2:01 PM EST Pulse--Temperature--Respiratory Rate--Oxygen Saturation--Inhaled Oxygen Concentration--Uzhitv93.6 kg (131 lb 6.4 oz)12/31/2024 2:01 PM ESTHeight--Body Mass Index24.031 2:01 PM EDTdocumented in this encounter Progress Notes * Angela Burks LPN - 12/31/2024 1:30 PM ESTAssociated Order(s): Colposcopy Post-Procedure Diagnose(s): LGSIL of cervix of undetermined significance Reason for Appointment: Patient ID: Jeannine Raygoza is a 34 y.o. female who presents for Colposcopy Patient presents today for a Colposcopy appointment. MEDICATIONS No current outpatient medications ALLERGIES Allergies Allergen Reactions Penicillin G Penicillins PROBLEMS Active Ambulatory Problems Diagnosis Date Noted No Active Ambulatory Problems Resolved Ambulatory Problems Diagnosis Date Noted No Resolved Ambulatory Problems Past Medical History: Diagnosis Date Human papilloma virus (HPV) vaccine administered Pap smear for cervical cancer screening 2020 HISTORY PAST MEDICAL HISTORY SOCIAL HISTORY Past Medical History: Diagnosis Date Human papilloma virus (HPV) vaccine administered Pap smear for cervical cancer screening 2020 neg Ngozi Mitchell Social History Tobacco Use Smoking status: Not [...] appearance. She is well-developed. Genitourinary: Vulva normal. Cardiovascular: Rate and Rhythm: Normal rate and [...] nursing note reviewed. Exam conducted with a aquatic scientist present. Vitals: Estimated body mass index is 24.03 kg/m?? as calculated from the following: Height as of 11/23/22: 5' 2 . Weight as of this encounter: 131 lb 6.4 oz. BP: 120/68 No LMP recorded. (Menstrual status: IUD). ASSESSMENT & PLAN Encounter Diagnosis: ICD-10-CM 1. LGSIL of cervix of undetermined significance R87.612 POCT , urine manually resulted Colposcopy Colposcopy Date/Time: 12/31/2024 2:22 PM Performed by: Nitin Alejo DO Authorized by: Nitin Alejo DO Consent: Patient questions answered: yes Risks and benefits of the procedure and its alternatives discussed: yes Procedural risks discussed: Bleeding and infection Consent obtained: Written Consent given by: Patient Indication: Other indication(s): clinical abnormality Pre-procedure: Speculum was placed in the vagina: yes Prep solution(s): acetic acid Procedure: Colposcopy with: endocervical curettage Cervix visibility: fully visualized Post-procedure: Patient tolerance of procedure: Patient tolerated the procedure well with no immediate complications Instructions and paperwork completed: yes Educational handouts given: no Comments: Colposcopy: Patient is doing well and has no complaints. Pap results have been reviewed with the patient in great detail and patient voiced understanding. Patient presents today for a Colposcopy with ECC. Patient was placed in dorsal lithotomy position with feet in stirrups, a sterile speculum was placed into the vagina and the cervix was visualized. Cervix was cleansed with vinegar. Postprocedural instructions given. All if patients questions answered and she expressed understanding. Advised to call in interim with questions or concerns. Follow Up: Patient is to return in 6 months for Repeat Pap. Assessment/Plan Documented by Angela uBrks LPN on behalf of: Nitin Alejo DO documented in this encounter Plan of Treatment DateTypeDepartmentCare Team (Latest Contact Info)Wognczplmnt00/26/2026 2:00 PM EDTProcedure Visit [facility] [address] [place] [phone] Nitin Alejo DO [address] [place] [address] 12/11/2025 2:00 PM EDTProcedure Visit [facility] [address] [place] [address] Skye Reveles PA [address] [place], [place] [phone] NameTypePriorityAssociated DiagnosesOrder ScheduleColposcopyProceduresRoutine LGSIL of cervix of undetermined significance Expected: 12/31/2024 (Approximate), Expires: 12/31/2025documented as of this encounter Procedures Procedure NamePriorityDate/TimeAssociated DiagnosisCommentsCOLPOSCOPYRoutine 12/31/2024 2:22 PM EST LGSIL of cervix of undetermined significance POCT , CAIDFYuerlmy20/18/2025 2:09 PM EST LGSIL of cervix of undetermined significance documented in this encounter Results * Colposcopy (12/31/2024 2:22 PM EST) Angela Bell LPN - 12/31/2024 2:22 PM EST Angela Burks LPN 12/31/2024 3:35 PM Colposcopy Date/Time: 12/31/2024 2:22 PM Performed by: Nitin Alejo DO Authorized by: Nitin Alejo DO ?? Consent: ??Patient questions answered: yes ?Risks and benefits of the procedure and its alternatives discussed: yes ?Procedural risks discussed: ??Bleeding and infection ??Consent obtained: ??Written ??Consent given by: ??Patient Indication: ??Other indication(s): clinical abnormality ?? Pre-procedure: ??Speculum was placed in the vagina: yes ?Prep solution(s): acetic acid ?? Procedure: ??Colposcopy with: endocervical curettage ?Cervix visibility: fully visualized ?? Post-procedure: ??Patient tolerance of procedure: ??Patient tolerated the procedure well with no immediate complications ??Instructions and paperwork completed: yes ?Educational handouts given: no ?? Comments: ?? Colposcopy: Patient is doing well and has no complaints. Pap results have been reviewed with the patient in great detail and patient voiced understanding. Patient presents today for a Colposcopy with ECC. Patient was placed in dorsal lithotomy position with feet in stirrups, a sterile speculum was placed into the vagina and the cervix was visualized. Cervix was cleansed with vinegar. Postprocedural instructions given. All if patients questions answered and she expressed understanding. Advised to call in interim with questions or concerns. Follow Up: Patient is to return in 6 months for Repeat Pap. Authorizing ProviderResult TypeResult StatusCorey Sapna [facility]/BED[facility]IDE ORDERABLESFinal Result * POCT , urine manually resulted (12/31/2024 2:09 PM EST)ComponentValue Ref RangeTest MethodAnalysis TimePerformed AtPathologist SignaturePreg Test, UrNegativeNegativeSpecimen (Source)Anatomical Location / LateralityCollection Method / VolumeCollection TimeReceived UhatWmhdz41/18/2025 2:09 PM EST Narrative Authorizing ProviderResult TypeResult StatusCorey Sapna DOPOINT OF CARE TEST ENTER/EDIT ORDERABLESFinal Result documented in this encounter Visit Diagnoses Diagnosis LGSIL of cervix of undetermined significance documented in this encounter Care Teams Team MemberRelationshipSpecialtyStart DateEnd Date Ky Fox MD [address], [place] [address] PCP - GeneralFamily Medicine09/15/22documented as of this encounter
--- OUTSIDE RECORDS SUMMARY | 2025-01-01 19:29 | XMS_ITS | Continuity of Care Document ---
Author Organization [facility] Address [address] [place] [address] Phone Care Team Providers Care Box Toe Buffer Name Role Phone Nitin Alejo DO Attending Provider [phone] Care Teams Patient Care Team Team Status: Inactive Member Role/Relationship Status Dates Nitin Alejo DO Attending Provider Active Start : December 31, 2024 End: December 31, 2024 Allergies, Adverse Reactions, Alerts Allergen Type Severity Reaction Last Updated Verified Status penicillin G Allergy Unknown unknown March 16, 2021 8:55am Y es Active Social History Smoking Status Status Start Date End Date Date of Observa tion Never smoked tobacco (finding) March 16, 2021 8:55am Observation Status Observation Response Date of Response Legal Sex Female (finding) Sex Assigned At BirthFemaleJuly 1990 Advance Directives Advance Directive Response Recorded Date/ Time Advance Directives No March 07, 2021 1:34pm Insurance Providers Guarantor Jeannine Tahmina Jaret Address [address] [place] [address] [address] [place] [phone] Info.Home Phone: Payer Group Member ID Coverage Type Subscriber Relationship to Subscriber Effective Date Expiration Date [employer] Unemployed Id: [id number] Leigh Jaret Id: [id number] [address] [facility] [address] [place] [id number] Home Phone: Self Encounters Encounter Location(s) Arrival/Admit Date Discharge/Departure Date Discharge/Departure Disposition Provider(s) Departed Referred -Lab [facility] December 31, 2024 1:56pm December 31, 2024 1:57pm Discharged to home care or self care (routine discharge) Nitin Alejo
--- OUTSIDE RECORDS SUMMARY | 2025-01-02 15:32 | XMS_ITS | Encounter Summary ---
Author Organization [facility] Address [address] [facility] [place] [address] Care Team Providers Care Drywall Applicator Name Role Phone Ky Fox MD Primary Care Provider [phone] Encounter Details DateTypeDepartmentCare Team (Latest Contact Info)Jfyyaxszrwb31/17/2025Travel Social History Tobacco UseTypesPacks/DayYears UsedDateSmoking Tobacco: Never Assessed CommentsNoSex and Gender InformationValueDate RecordedSex Assigned at BirthNot on fileLegal FhbUofzuf57/15/2023 6:58 PM EDTGender IdentityNot on fileSexual OrientationNot on filedocumented as of this encounter Plan of Treatment DateTypeDepartmentCare Team (Latest Contact Info)Repckdzrzbk48/26/2026 2:00 PM EDTProcedure Visit [facility] [address] [place] [address] [place] [address] Nitin Alejo DO [address] [facility] [address] [place], [facility]11 12/11/2025 2:00 PM EDTProcedure Visit [facility] [address] [place] [address] Skye Reveles PA [address] [facility] [address] [place], [facility] documented as of this encounter Visit Diagnoses Not on filedocumented in this encounter Care Teams Team MemberRelationshipSpecialtyStart DateEnd Date Ky Fox MD [address] [place] [address] PCP - Generalmily Medicine09/15/22documented as of this encounter
--- OUTSIDE RECORDS SUMMARY | 2025-01-02 15:33 | XMS_ITS | Clinical Summary ---
Author Organization [facility] Address [address] [facility] [place] [address] Care Team Providers Care Inside Sales Account Manager Name Role Phone Ky Fox MD Primary Care Provider [phone] Allergies Active AllergyReactionsCriticalityNoted DateCommentsPenicillin G011/03/2021 Nritwphbhgh69/01/2023 Medications Hospital, Clinic, or Other Facility Administered MedicationOrdered DoseRoute FrequencyStart DateEnd DateStatus Levonorgestrel intrauterine device 52 mg Indications:Encounter for insertion of intrauterine contraceptive device (IUD)52 nfJINokknlnzbx48/11/2023ctive Encounters DateTypeDepartmentCare MsbyLesoadcbaus27/18/2025 1:30 PM ESTProcedure Visit [facility] [address] [place] [address] Nitin Alejo, DO LGSIL of cervix of undetermined rdfckshjlhaq29/18/2025bstract [facility] [address] [facility] [place] [address] Nitin Alejo DO 12/30/20240547Krrotb58/03/2025Orders Only [facility] [address] [place] [address] Nancy Vargas LPN 12/02/2024 3:00 PM EDTOffice Visit [facility] [address] [place] [address] Nitin Alejo, DO Well woman exam with routine gynecological exam12/02/2024linisync Result Encounter [facility] External Department Unsolicited Nitin Alejo, 12/02/2024amboo flowsheet [facility] [address] [place] [address] [place] [address] Sapna Nitin, DO 12/01/2024Travelfrom Last 3 Months Social History Tobacco UseTypesPacks/DayYears UsedDateSmoking Tobacco: Never Assessed CommentsNoSex and Gender InformationValueDate RecordedSex Assigned at BirthNot on fileLegal LclChvaag65/15/2023 6:58 PM EDTGender IdentityNot on fileSexual OrientationNot on file Last Filed Vital Signs Vital SignReadingTime TakenCommentsBlood Qdwdadqn911/6812/31/2024 2:01 PM EST Pulse--Temperature--Respiratory Rate--Oxygen Saturation--Inhaled Oxygen Concentration--Itwvfz86.6 kg (131 lb 6.4 oz)12/31/2024 2:01 PM UUQLhmweb922.5 cm (5' 2 )11/23/2022 2:01 PM EDTBody Mass Index24.031 2:01 PM EDT Plan of Treatment DateTypeDepartmentCare Team (Latest Contact Info)Muuvotxyems21/26/2026 2:00 PM EDTProcedure Visit [facility] [address] [place] [address] [place] [address] Nitin Alejo, [address] [place] [address] 12/11/2025 2:00 PM EDTProcedure Visit [facility] [address] [place] [address] [place] [address] Skye Reveles PA [address] [place] [address] [place] [address] Health MaintenanceDue DateLast DoneCommentsHPV/Tbtoyx8909/10/2018COVID-19 Vaccine ( season), 10/30/2020Influenza Vaccine (#1) /ervical Cancer Dlmyhozzh19/20/2028Pap Smear12/03/2027 12/02/2024, 4Pneumococcal Vaccine: Pediatrics (0 to 5 Years) and At- Risk Patients (6 to 64 Years)Aged OutNo longer eligible based on patient's age to complete this topic Procedures Procedure NamePriorityDate/TimeAssociated DiagnosisCommentsCOLPOSCOPYRoutine 12/31/2024 2:22 PM EST LGSIL of cervix of undetermined significance POCT , TOCMLVwlzkyx11/18/2025 2:09 PM EST LGSIL of cervix of undetermined significance IGP,APTIMA HPV,AGE ZZGNIpltpbq02/20/2025 3:35 PM EDT PAP TEST, CDOTNXDSRauuspn57/20/2025 12:00 AM EDTfrom Last 3 Months Results * Colposcopy (12/31/2024 2:22 PM EST) Narrative Angela Burks LPN - 12/31/2024 2:22 PM EST Angela [...] Location / LateralityCollection Method / VolumeCollection TimeReceived MeenEbupl08/18/2025 2:09 PM EST Narrative Authorizing ProviderResult TypeResult StatusCorey Sapna DOPOINT OF CARE TEST ENTER/EDIT ORDERABLESFinal Result * (ABNORMAL) IGP,APTIMA HPV,AGE GDLN (12/02/2024 3:35 PM EDT)ComponentValueRef RangeTest MethodAnalysis TimePerformed AtPathologist SignatureAGE GDLN ACOG TESTINGNote.TBHComment: ?? TESTS ? RESULT ??FLAG ??UNITS ?REF RANGE ??LAB ?? Clinician Provided Cytology Information ?? Source.............Cervix;Endocervix ?? No. of containers..01 ThinPrep Vial Age Algo ACOG Clari... ??30-65 ? 01 ?FLAG LEGEND: ?L-Low Normal,H-High Normal,LL-Alert Low,HH-Alert High <-Panic Low,>-Panic High,A-Abnormal,AA-Critical Abnormal Performed at: 01 =G ?[facility] ?? [address] [place] ??[phone] ?? Fany Adair MD, IGP, APTIMA HPV, RFX 16/18,45Note(A).TBHComment: ?? TESTS ? RESULT ??FLAG ??UNITS ?REF RANGE ??LAB DIAGNOSIS: ? [A] ?02 ?? EPITHELIAL CELL ABNORMALITY. ?? LOW GRADE SQUAMOUS INTRAEPITHELIAL LESION (LSIL). Recommendation: ?[A] ?02 ?? Suggest follow up as clinically appropriate. Specimen adequacy: ?02 ?? Satisfactory for evaluation. No endocervical component is identified. Performed by: ? 02 ?? Mouna Martinez Weatherization And Housing Inspector (ASCP) Electronically si... ?02 ?? Derrick Jama MD, Pathologist . ? 02 Pathologist ICD10: ?02 ?? R87.612 Note: ? Note ?02 ?? The Pap smear is a screening test designed to aid in the ?? detection of premalignant and malignant conditions of the ?? uterine cervix. ??It is not a diagnostic procedure and ?? should not be used as the sole means of detecting cervical ?? cancer. ??Both false-positive and false-negative reports do ?? occur. Test Methodology: ? Note ?02 ?? This liquid based ThinPrep(R) pap test was interpreted ?? using the Welocalize(R) Genius(TM) Cervical Algorithm whole ?? slide imaging system. HPV Genotype Reflex ?? Note ?02 ?? Criteria not met, HPV Genotype not performed. ?FLAG LEGEND: ?L-Low Normal,H-High Normal,LL-Alert Low,HH-Alert High <-Panic Low,>-Panic High,A-Abnormal,AA-Critical Abnormal Performed at: 02 WB ?[facility] ?? [address] [place], [place] ??[address] ?? Fany Adair MD, HPV APTIMAPositive(A)NegativeTBHComment: This nucleic acid amplification test detects fourteen high- risk HPV types (16,18,31,33,35,39,45,51,52,56,58,59,66,68) without differentiation. Performed at: ??=G - [address] ??[id number] Wiring Inspector: Fany Adair MD, Phone: ??[phone] Performed at: ?? - [address] ??[id number] Wiring Inspector: Fany Adair MD, Phone: ??[phone] Specimen (Source)Anatomical Location / LateralityCollection Method / Volume Collection TimeReceived Time12/02/2024 3:35 PM EDT1 8:50 PM EDT Narrative [facility] - 12/09/2024 3:08 PM EDT BRUSH-SPATULA CERVIX ENDOCERVIX Authorizing ProviderResult TypeResult StatusCorey Sapna DOLAB BLOOD ORDERABLES Final ResultPerforming OrganizationAddressCity/State/ZIP CodePhone Number [facility] * (ABNORMAL) PAP TEST, EXTERNAL (12/02/2024 12:00 AM EDT) Narrative Authorizing ProviderResult TypeResult StatusFazio Nurse Noms Bcp ObLAB CYTOLOGY ORDERABLESFinal ResultPerforming OrganizationAddressCity/State/ZIP CodePhone Number EXTERNAL LAB from Last 3 Months Insurance Care Teams Team MemberRelationshipSpecialtyStart DateEnd Date Ky Fox MD [address] [facility], [place] [address] PCP - GeneralFamily Medicine09/15/22
--- OUTSIDE RECORDS SUMMARY | 2025-01-02 15:33 | XMS_ITS | Encounter Summary ---
Author Organization [facility] Address [address] [facility] [place] [address] Care Team Providers Care Mastic Floor Layer Name Role Phone Ky Fox MD Primary Care Provider [phone]- [phone] Encounter Details DateTypeDepartmentCare Team (Latest Contact Info)Osdzzvnjuzh41/18/2025bstract SACHI LAWRENCE [address] [address] Nitin Alejo DO [address] [place], [facility] Social History Tobacco UseTypesPacks/DayYears UsedDateSmoking Tobacco: Never Assessed CommentsNoSex and Gender InformationValueDate RecordedSex Assigned at BirthNot on fileLegal BfrDnsikv14/15/2023 6:58 PM EDTGender IdentityNot on fileSexual OrientationNot on filedocumented as of this encounter Plan of Treatment DateTypeDepartmentCare Team (Latest Contact Info)Zwcwmubgzvt17/26/2026 2:00 PM EDTProcedure Visit NOM[facility] LAWRENCE [address] [place] [address] Nitin Alejo DO [address] [place] [address] 12/11/2025 2:00 PM EDTProcedure Visit NOM[facility]ai LAWRENCE [address] [place] [address] Skye Reveles PA [address] [place] [address] [place] [address] documented as of this encounter Visit Diagnoses Not on filedocumented in this encounter Care Teams Team MemberRelationshipSpecialtyStart DateEnd Date Ky Fox MD [address] [place] [address] PCP - GeneralFamily Medicine09/15/22documented as of this encounter
--- OUTSIDE RECORDS SUMMARY | 2025-01-02 15:33 | XMS_ITS | Clinical Summary ---
Author Organization [facility] Address [id number] [place] [address] Care Team Providers Care Abalone Fisherman Name Role Phone Ana Laura Henry Miranda MAY-INVENTORY MANAGER Primary Care Provider + Allergies Active AllergyReactionsCriticalityNoted FxupMmfeisixFppncfgdbr58/21/2022 Ueufcuqiorx40/20/2022 Medications MedicationSigDispense QuantityRefillsLast FilledStart DateEnd DateStatus lidocaine (LIDODERM) 5 % Place 1 patch on the skin daily. Remove & Discard patch within 12 hours or as directed by MD 30 patch 4Active Additional Information Patient not taking.Reported on 12/10/2024 levonorgestreL (MIRENA) 21 mcg/24hr (up to 8 yrs) 52 mg IUD 1 each by intrauterine route once. Inserted Nov - FosioActive ibuprofen (MOTRIN) 800 mg tablet Indications:Numbness and tingling in both hands,Strain of other flexor muscle, fascia and tendon at forearm level, left arm, initial encounterTake 1 tablet (800 mg total) by mouth every 8 (eight) hours as needed for pain. 60 tablet 5Active predniSONE (DELTASONE) 50 mg tablet Indications:Numbness and tingling in both hands,Strain of other flexor muscle, fascia and tendon at forearm level, left arm, initial encounterTake 1 tablet (50 mg total) by mouth in the morning for 5 days. 5 tablet Expired Active Problems ProblemNoted DateDiagnosed EyacDaoskmsnz69/21/2022ymptoms involving urinary jrnfrl1611/03/2021 Encounters DateTypeDepartmentCare GiklAbbhlfcmjgs37/28/2025 3:00 PM EDTOffice Visit [facility] [address] [place] [phone] Anshul Teague, SLAB STRIPPER-INVENTORY MANAGER Numbness and tingling in both hands (Primary Dx); Strain of other flexor muscle, fascia and tendon at forearm level, left arm, initial bmnvyqjxl83/28/2025Travelfrom Last 3 Months Immunizations ImmunizationAdministration DatesNext DueInfluenza (IM) Preservative Free 03/01/2024 Family History Medical HistoryRelationNameCommentsHypertensionFatherNo Known ProblemsMother RelationNameStatusCommentsFatherMotherAlive Social History Tobacco UseTypesPacks/DayYears UsedDateSmoking Tobacco: NeverSmokeless Tobacco: NeverAlcohol UseStandard Drinks/WeekCommentsNever0 (1 standard drink = 0.6 oz pure alcohol)Overall Financial Resource Strain (CARDIA)AnswerDate RecordedHow hard is it for you to pay for the very basics like food, housing, medical care, and heating?Not hard at all03/01/2024PHQ-2AnswerDate RecordedTotal Score0 12/10/2024PRAPARE - TransportationAnswerDate RecordedIn the past 12 months, has lack of transportation kept you from medical appointments or from getting medications?No03/01/2024In the past 12 months, has lack of transportation kept you from meetings, work, or from getting things needed for daily living?No 03/01/2024Housing InstabilityAnswerDate RecordedAre you worried or concerned that in the next two months you may not have stable housing that you own, rent or stay in as a part of a household?No03/01/2024hildcareAnswerDate Recorded EymzmclveRrwcvuk04/12/2019EmploymentAnswerDate RecordedEmploymentUnknown 07/25/2018Hunger ScreeningAnswerDate RecordedWithin the past 12 months we worried whether our food would run out before we got money to buy more.Never True12/10/2024Within the past 12 months the food we bought just didn't last and we didn't have money to get more.Never True12/10/2024CommentsUnknownSex and Gender InformationValueDate RecordedSex Assigned at BirthNot on fileLegal PkeLuujxa99/06/2015 11:52 AM EDTGender IdentityNot on fileSexual OrientationNot on file Last Filed Vital Signs Vital SignReadingTime TakenCommentsBlood Sgpemmvk768/6610 2:53 PM EDT Awjjj017112/10/2024 2:53 PM ZXWBxlrecqqngu16.5 ??C (97.7 ??F)12/10/2024 2:53 PM EDTRespiratory Yuwa9537 2:53 PM EDTOxygen Vyklzfgugt48%12/10/2024 2:53 PM EDTInhaled Oxygen Concentration--Bcqabp71.3 kg (133 lb)12/10/2024 2:53 PM EDT Inqffp597.5 cm (5' 2.01 )12/10/2024 2:53 PM EDTBody Mass Index24.321 2:53 PM EDT Plan of Treatment DateTypeDepartmentCare Team (Latest Contact Info)Rvkzamqyiwp90/04/2025 1:40 PM ESTOffice Visit [facility] [address] [place] [phone] Anshul Teague, SLAB STRIPPER-INVENTORY MANAGER [address], [facility] [address] [place] [address] Health MaintenanceDue DateLast DoneCommentsPap Smear2009COVID-19 Vaccine (3 - Pfizer risk series)/, 10/30/2020Influenza Vaccine dult BMI Nluwsyoay36Depression Screening Tobacco Vxuqrabzm89DTaP,Tdap and Td Vaccines (2 - Td or Tdap)5 Medical Devices Not on file Insurance * Guarantor: Jeannine RaygozaAccount TypeRelation to PatientDate of BirthPhone Billing AddressPersonal/WcbfdfNvhe84/29/[address] [address] Care Teams Team MemberRelationshipSpecialtyStart DateEnd Date Ana Laura Henry, LALO-INVENTORY MANAGER [address] [place] [address] PCP - GeneralFamily Uwyhynhu03/1/24
--- OUTSIDE RECORDS SUMMARY | 2025-01-02 15:34 | XMS_ITS | CCD ---
Author Organization [facility] Care Team Providers Care Informatics Specialist Name Role Phone NGOZI SOLIS Attending Unavailable NGOZI SOLIS Consulting Unavailable NGOZI SOLIS Admitting Unavailable Sobeida Claire Unavailable Ky Fox MD Primary Care Provider Shoaib SOLUTION COORDINATOR-GAS PIT WORKER, Jered Miranda Primary Care Provider SHOAIB, JERED L Referring [...] SHOAIB, JERED L Primary Care Unavailable Shoaib SOLUTION COORDINATOR-GAS PIT WORKER, Jered L Primary Care Provider Ky Fox MD Primary Care Provider DYANA ALEJO Attending Unavailable SHOAIB, JERDE L Attending Unavailable SHOAIB, JERED L Referring Unavailable SHOAIB, JERED L Primary Care Unavailable SHOAIB, JERED L Attending Unavailable SHOAIB, JERED L Referring Unavailable SHOAIB, JERED L Primary Care Unavailable SHOAIB, JERED L Attending Unavailable SHOAIB, JERED L Referring Unavailable SHOAIB, JERED L Primary Care Unavailable DONNA BARAJAS Attending Unavailable SHOAIB, JERED L Referring Unavailable SHOAIB, JERED L Primary Care Unavailable Shoaib SOLUTION COORDINATOR-GAS PIT WORKER, Jered L Primary Care Provider Allergies Allergy ClassificationReported Allergen(s)Allergy TypeDate of OnsetReaction(s) Facility (4 sources)Penicillins; Translations: [PENICILLINS]Drug allergy (disorder) 47-32-9794MtpSouth[facility] Rep[facility] (9 sources)Penicillin GDrug Kcaipfv19-25-3987ehnlowtMYNN Healthcare Work Phone: (8 sources)PenicillinsPropensity to adverse hjngenocd00-01-0415QJJZ Healthcare (7 sources)Penicillin; Translations: [PENICILLIN]Drug Cgxkxyx94-30-4202XkzVmqcyc Health System Work Phone: (2 sources)PenicillinsPropensity to adverse reactions to yulk50-12-3164JbjMvaflq Health System (2 sources)PenicillinsPropensity to adverse reactions to jqea78-89-3644RuaNwbrva Health System Medications Current Medications MedicationDrug Class(es)DatesSig (Normalized)Sig (Original)ibuprofen 800 mg oral tablet (1 source)Nonsteroidal Anti-inflammatory DrugStart: 05-30-7831klzg 1 tablet by mouth every eight hours as needed for painibuprofen (MOTRIN) 800 mg tablet Indications: Numbness and tingling in both hands , Strain of otherflexor muscle, fascia and tendon at forearm level, left arm, initial encounter Take 1 tablet (800 mg total) by mouth every 8 (eight) hours as needed for pain. 60 tablet 2 12/10/2024 Activelevonorgestrel 0.729951 mg/hr intrauterine system (11 sources)Progestin, Progestin-containing Intrauterine DeviceStart: 11-23-2022 Levonorgestrel intrauterine device 52 mglevonorgestreL (MIRENA) 21 mcg/24hr (up to 8 yrs) 52 mg IUD 1 each by intrauterine route once. Inserted Nov Activelidocaine 0.05 mg/mg medicated patch (4 sources)Antiarrhythmic, Amide Local AnestheticStart: 73-98-3087uwewx 1 dose transdermal route once daily, then apply 1 dose transdermal route every twelve hourslidocaine (LIDODERM) 5 % Place 1 patch on the skin daily. Remove & Discard patch within 12 hours or as directed by 30 patch 02/01/2024 Activenaproxen sodium 550 mg oral tablet (1 source)Nonsteroidal Anti-inflammatory DrugStart: 02-01-2024 End: 66-59-0789opsh 1 tablet by mouth once in the morning, then take 1 tablet by mouth at mealtimenaproxen sodium (ANAPROX DS) 550 mg tablet Take 1 tablet (550 mg total) by mouth in the morning and1 tablet (550 mg total) in the evening. Take with meals. Do all this for 30 doses. 30 tablet 02/01/2024 02/16/2024 Oertab70 hr orphenadrine citrate 100 mg extended release oral tablet (1 source)Muscle RelaxantStart: 02-01-2024 End: 43-89-5295cncb 1 tablet by mouth in the morning, then take 1 tablet by mouth every twelve hours at bedtimeorphenadrine (NORFLEX) 100 mg 12 hr tablet Take 1 tablet (100 mg total) by mouth in the morning and1 tablet (100 mg total) before bedtime. Do all this for 30 doses. 30 tablet 02/01/2024 02/16/2024 Active predniSONE 50 mg oral tablet (1 source)Start: 12-10-2024 End: 83-46-8250hmqy 1 tablet by mouth in the morningpredniSONE (DELTASONE) 50 mg tablet Indications: Numbness and tingling in both hands , Strain of other flexor muscle, fascia and tendon at forearm level, left arm, initial encounter Take 1 tablet (50mg total) by mouth in the morning for 5 days. 5 tablet 12/10/2024 12/15/2024 Active Problems Active Problems Problem ClassificationProblemDateDocumented DateEpisodic/ChronicOther nervous system disorders (1 source)Anesthesia of skin; Translations: [Anesthesia of skin]Onset: 43-43-8201SvoiijjjDzdxh nervous system disorders (1 source)Paresthesia of skin; Translations: [Paresthesia of skin]Onset: 86-84-1651FseialspEyswi nervous system disorders (1 source)Paresthesia of hand ; Translations: [Anesthesia of skin]12-10-2024 EpisodicOther skin disorders (2 sources)Multiple skin tags; Translations: [Other hypertrophic disorders of the skin]06-03-6113YluvoxhyKbkupoc and strains (2 sources)Strain of other flexor muscle, fascia and tendon at forearm level, left arm, initial encounter; Translations: [Injury of forearm]Onset: 12-10-2024 42-73-2335SzvtkmfzGnoeatnasiyn (1 source)hands going numb X couple weeksOnset: 29-86-7678Eyaowgdkgngb (1 source)Low back pain, unspecified; Translations: [Low back pain, unspecified] Onset: 33-13-8419Vjtjzmshpmjj (1 source)Annual ExamOnset: 03-01-2024 Past or Other Problems Problem ClassificationProblemDateDocumented DateEpisodic/ChronicAbdominal pain (2 sources)Suprapubic pain; Translations: [Pelvic and perineal pain]Onset: 102574-97-2531AjavynweJnajqymk of lower limb (1 source)Fracture of unspecified metatarsal bone(s), left foot, subsequent encounter for fracture with routine healingOnset: 04-06-2021 Resolved: 99-76-2330OfrfdmolVvvnvtpimoxjv symptoms and ill-defined conditions (6 sources)Urinary symptoms ; Translations: [Unspecified symptoms and signs involving the genitourinary system]Onset: 876913-90-5784Fbzkknoz Immunizations and screening for infectious disease (6 sources)Contact with and (suspected) exposure to other viral communicable diseases; Translations: [Influenza vaccination given]Onset: EpisodicInflammatory diseases of female pelvic organs (4 sources)Vaginitis; Translations: [Acute vaginitis]Onset: EpisodicMood disorders (3 sources)Mood disordersOnset: 03-01-2024 Resolved: Other connective tissue disease (1 source)Pain in left footOnset: 04-06-2021 Resolved: 09-32-7830HdjtnvwsSkhom screening for suspected conditions (not mental disorders or infectious disease) (2 sources)Patient encounter status; Translations: [Encounter for screening for malignant neoplasm of skin]Onset: 914615-96-5877WyrobcnrIopyz skin disorders (1 source)Other hypertrophic disorders of the skin; Translations: [Other hypertrophic disorders of the skin]Onset: 46-38-7132GywcycieZylrwbzzqds; intervertebral disc disorders; other back problems (7 sources)Acute back pain with sciatica; Translations: [Lumbago with sciatica, right side]Onset: 748744-97-7997ExeklppdBaxxtvaghihe (1 source)Patient encounter jrfnad40-84-5622Qprgvgr tract infections (1 source)Urinary tract infectious diseaseOnset: 26-70-7204Rtezkxmw Results Test NameValueInterpretationReference RangeFacilityIGP,APTIMA HPV,AGE GDLNon 51-14-6337CUT GDLN ACOG TESTINGNote.NOMS HealthcareComment on above:TESTS RESULT FLAG UNITS REF RANGE LAB Clinician Provided Cytology Information Source.............Cervix;Endocervix No. of containers..01 ThinPrep Vial Age Algo ACOG Clari... 30-65 FLAG LEGEND: L-Low Normal,H-High Normal,LL-Alert Low,HH-Alert High <-Panic Low,>-Panic High,A-Abnormal,AA-Critical Abnormal Performed at: 01 =G [facility] [address] Fany Adair MD, HPV APTIMAPositiveAbnormalNegativeNOMS HealthcareComment on above:This nucleic acid amplification test detects fourteen high- risk HPV types (16,18,31,33,35,39,45,51,52,56,58,59,66,68) without differentiation. Performed at: =G - [facility] [address] [facility] [place] [place], [place] [address] Visual Merchandiser: Fany Adair MD, Phone: [phone] Performed at: WB - [facility] [address] [facility] [place] [address] Visual Merchandiser: Fany Adair MD, Phone: [phone] IGP, APTIMA HPV, RFX 16/18,45NoteAbnormal.NOMS HealthcareComment on above:TESTS RESULT FLAG UNITS REF RANGE LAB DIAGNOSIS: [A] 02 EPITHELIAL CELL ABNORMALITY. LOW GRADE SQUAMOUS INTRAEPITHELIAL LESION (LSIL). Recommendation: [A] 02 Suggest follow up as clinically appropriate. Specimen adequacy: 02 Satisfactory for evaluation. No endocervical component is identified. Performed by: 02 Mouna Martinez, Line Worker (ASCP) Electronically si... 02 Derrick Jama MD, Pathologist . 02 Pathologist ICD10: 02 R87.612 Note: Note 02 The Pap smear is a screening test designed to aid in the detection of premalignant and malignant conditions of the uterine cervix. It is not a diagnostic procedure and should not be used as the sole means of detecting cervical cancer. Both false-positive and false-negative reports do occur. Test Methodology: Note 02 This liquid based ThinPrep(R) pap test was interpreted using the IPextreme(R) Genius(TM) Cervical Algorithm whole slide imaging system. HPV Genotype Reflex Note 02 Criteria not met, HPV Genotype not performed. FLAG LEGEND: L-Low Normal,H-High Normal,LL-Alert Low,HH-Alert High <-Panic Low,>-Panic High,A-Abnormal,AA-Critical Abnormal Performed at: 02 WB [facility] [address] [address] Fany Adair MD, Interpretation and review of laboratory resultsAbnoJeanes Hospital BRUSH-SPATULA CERVIX ENDOCERVIX CLINISYLaughlin Memorial HospitalPOCT , urineon 12-17-6113Bjgt HCG ( test) Ql (U)NegativeMarshfield Medical Center Beaver Dam SystemPOCT urinalysis dipstick onlyon 09-77-2282Thquanvagc (U)clearSelect [facility]ty [facility] System External Poct Urine BilirubinNegativeFort [facility] Hospital Health SystemExternal Poct Urine BloodNegativeSelect [facility] SystemExternal Poct Urine ColoryellowProKettering Health Hamilton SystemExternal Poct Urine GlucoseNegativeSelect [facility] SystemExternal Poct Urine KetonesNegativeSelect [facility] SystemExternal Poct Urine Leukocyte EsteraseNegativeSelect [facility] SystemExternal Poct Urine NitriteNegative [facility] SystemExternal Poct Urine Tt0TsuQfdmikKettering Health Hamilton SystemExternal Poct Urine ProteinNegativeFort Hamilton Hospital Health SystemExternal Poct Urine Specific Gravity1.015[facility] SystemExternal Poct Urine Urobilinogen0.2PRogers Memorial Hospital - [facility] SystemCOMPREHENSIVE METABOLIC PANELon 03-01-2024 Albumin [Mass/Vol]4.5 g/dLNormal3.2-5.3PWestern Reserve HospitalComment on above:Performed By: #### MEGGAN, 68719-1 #### [facility] ([id number]) [address] [place], [place] [address]FZB [Catalytic activity/Vol]45 U/NVvrgff28-825SbaYfodas [place] HospitalComharbor oaks hospital on above:Performed By: #### MEGGAN, 15061-3 #### [facility] ([id number]) [address] [place], [place] [address]UNG [Catalytic activity/Vol]12 U/LNormal0-31Pro[facility]ica [place] HospitalComment on above:Performed By: #### MEGGAN, 60120-3 #### [facility] ([id number]) [address], [address] [place], [place] [address]Ruocr gap [Moles/Vol]9 mmol/LNormal5-15[facility] [place] [facility] Comment on above:Performed By: #### MEGGAN, 16840-8 #### [facility] ([id number]) [address], [address] [place], [place] [address]RIW [Catalytic activity/Vol]19 U/LNormal0-41ProMedica [place] HospitalComment on above:Performed By: #### MEGGAN, 74823-2 #### [facility] ([id number]) [address], [address] [place], [place] [address]Jzithugyz [Mass/Vol]0.7 mg/dLNormal0.3-1.2ProMedcentral alabama va [facility] [place] HospitalComment on above:Performed By: #### MEGGAN, 64139-5 #### [facility] ([id number]) [address], [address] [place], [place] [address]Ttujngj [Mass/Vol]9.6 mg/dLNormal8.5-10.5ProMedcentral alabama [facility] [place] HospitalComment on above:Performed By: #### MEGGAN, 73543-2 #### [facility] ([id number]) [address], [address] [place], [place] [address]Kkckqczj [Moles/Vol]106 mmol/WUjcdof88-266NqmEldttf [place] HospitalComment on above:Performed By: #### MEGGAN, 98229-7 #### [facility] ([id number]) [address], [address] [place], [place] [address]ZX0 [Moles/Vol]25 mmol/RTtjpwr57-55DvlWrtjqx [place] [facility] Comment on above:Performed By: #### MEGGNA, 54188-4 #### [facility] ([id number]) [address], [address] [place], [place] [address]Ydhjgvkxsk [Mass/Vol]0.69 mg/dLNormal0.40-1.00ProPremier Health Atrium Medical Center HospitalComment on above:Result Comment: METHOD TRACEABLE TO IDMS STANDARD Performed By: #### MEGGAN, 88571-8 #### [facility] ([id number]) [address], [address] [place], [place] [address]yMDO (CKD-EPI) NON-RACE DEPENDENT>90Normal>59ProPremier Health Atrium Medical Center HospitalComment on above:Result Comment: Reported eGFR is based on the CKD-EPI 2020 equation that does not use a race coefficient.Performed By: #### MEGGAN, 78944-3 #### [facility] ([id number]) [address] [place], [place] [address]Edsyrcq [Mass/Vol]80 mg/pBHoefhx88-75UcrTirhgh [facility] Comment on above:Performed By: #### MEGGAN, 63866-1 #### [facility] ([id number]) [address], [address] [place], [place] [address]Nkdngbxtc [Moles/Vol]3.9 mmol/LNormal3.5-5.0ProCrystal Clinic Orthopedic CenterComment on above:Performed By: #### MEGGAN, 21621-1 #### [facility] ([id number]) [address], [address] [place], [place] [address]Hqgltxr [Mass/Vol]6.8 g/dLNormal6.0-8.0ProCrystal Clinic Orthopedic Center Comment on above:Performed By: #### MEGGAN, 50007-2 #### [facility] ([id number]) [address], [address] [place], [place] [address]Fnicmr [Moles/Vol]140 mmol/GRmyvno126-508OjdFwavuv [facility] Hospital For RehabilitationComment on above:Performed By: #### MEGGAN, 45733-2 #### [facility] ([id number]) [address] [place], [place] [address]Ddba nitrogen [Mass/Vol]18 mg/dLNormal5-23Kindred Hospital DaytonComment on above:Performed By: #### [facility], 51369-5 #### [facility] ([id number]) [address] [place], [place] [address]Npfcaaaszhtuv metabolic panelon 38-44-7633Pdkjbox [Mass/Vol]4.5 g/dL3.2 - 5.3 g/dLProJackson Medical Center Health SystemALP [Catalytic activity/Vol]45 U/L39 - 130 U/LPrParkland Health Centerica Health SystemALT No additional P-5'-P [Catalytic activity/Vol] 12 U/L0 - 31 U/LProMedica Health SystemAnion gap [Moles/Vol]9 mmol/L5 - 15 mmol/[facility] Hospitalica Health SystemAST [Catalytic activity/Vol]19 U/L0 - 41 U/L ProMedic Health SystemBilirubin [Mass/Vol]0.7 mg/dL0.3 - 1.2 mg/dLProJackson Medical Center Health SystemCalcium [Mass/Vol]9.6 mg/dL8.5 - 10.5 mg/dLProJackson Medical Center Health System Chloride [Moles/Vol]106 mmol/L98 - 109 mmol/LProMedica Health SystemCO2 [Moles/Vol]25 mmol/L22 - 32 mmol/[facility] Health SystemCreatinine [Mass/Vol] 0.69 mg/dL0.40 - 1.00 mg/dLSelect Medical Specialty Hospital [facility] SystemComment on above:METHOD TRACEABLE TO IDKS STANDARDeGFR (CKD-EPI)non-race dependent- Centra HealthComment on above: Reported eGFR is based on the CKD-EPI 2020 equation that does not use a race coefficient. Glucose [Mass/Vol]80 mg/dL65 - 99 mg/dLSelect Medical Specialty [facility] SystemPotassium [Moles/Vol]3.9 mmol/L3.5 - 5.0 mmol/LProMedica Health SystemProtein [Mass/Vol] 6.8 g/dL6.0 - 8.0 g/dLProJackson Medical Center Health SystemSodium [Moles/Vol]140 mmol/L134 - 146 mmol/LProMedSelect Medical OhioHealth Rehabilitation Hospital - DublinUrea nitrogen [Mass/Vol]18 mg/dL5 - 23 mg/dL [facility] Valley HospitalLipid 1996 panelon 01-27-9159Qbeucilecrl [Mass/Vol]171 mg/dL150 - 200 mg/dLBlanchard Valley Health System [facility] Valley HospitalCholesterol in HDL [Mass/Vol]68 mg/dL 39 - PINF mg/dLBlanchard Valley Health System [facility] Valley HospitalComment on above: HDL <40 mg/dL - High Risk HDL > or = 40mg/dL- Desirable HDL >60 mg/dL - Negative Risk Cholesterol in LDL [Mass/Vol]98 mg/dLNINF - 130 mg/dLBlanchard Valley Health System [facility] Comment on above: LDL <100 mg/dL - Desirable LDL >160 mg/dL - High Risk Cholesterol in VLDL [Mass/Vol]5 mg/dL0 - 30 mg/dLBlanchard Valley Health System [facility] Cholesterol.total/Cholesterol in HDL [Mass ratio]2.5 {ratio}1.0 - 5.0[facility] HospitalTriglyceride [Mass/Vol]27 mg/dL27 - 150 mg/dLBlanchard Valley Health System [facility] Valley HospitalCholesterol [Mass/Vol]171 mg/eABcibpg192-821KfyZtxjyeKindred Hospital Dayton Comment on above:Performed By: #### [facility], 19083-8 #### [facility] ([id number]) [address] [place], [place] [address]Crnsxbqjzbf in HDL [Mass/Vol]68 mg/dLNormal>39ProCrystal Clinic Orthopedic CenterComment on above:Result Comment: HDL <40 mg/dL - High Risk HDL > or = 40mg/dL- Desirable HDL >60 mg/dL - Negative Risk Performed By: #### MEGGAN, 65754-2 #### [facility] ([id number]) [address], [address] [place], [place] [address]Fcgfeyphxqc in LDL [Mass/Vol]98 mg/dLNormal<130ProPremier Health Atrium Medical Center HospitalComment on above:Result Comment: LDL <100 mg/dL - Desirable LDL >160 mg/dL - High Risk Performed By: #### MEGGAN, 59614-1 #### [facility] ([id number]) [address], [address] [place], [place] [address]Qxfbzkpsjpo in VLDL [Mass/Vol]5 mg/dLNormal0-30ProPremier Health Atrium Medical Center HospitalComment on above:Performed By: #### MEGGAN, 52799-1 #### [facility] ([id number]) [address], [address] [place], [place] [address]UMMEILUABYR:HDL2.7Ldouat6.0-5.0ProPremier Health Atrium Medical Center HospitalComment on above:Performed By: #### MEGGAN, 18599-7 #### [facility] ([id number]) [address], [address] [place], [place] [address]Ykirxpiuyonj [Mass/Vol]27 mg/cEOvzpwa23-926HbbFooraz Toledo HospitalComment on above:Performed By: #### MEGGAN, 63649-4 #### [facility] ([id number]) [address], [address] [place], [place] [address]Ag Panel Informationon 72-85-6760WepMutwfr Health SystemXR Lumbar spine 2 or 3 Viewson 18-25-5290ZYDT: XR SPINE LUMBAR 2 OR 3 VWS CLINICAL INFORMATION: Acute right-sided low back pain with right-sided sciatica. COMPARISON: None. FINDINGS: The lumbar spine maintains a normal lordotic curvature. There is no malalignment within the lumbar spine. There is no significant loss of the vertebral body heights. There is no evidence for an acutedisplaced fracture. There is localized mild loss of the L5-S1 disc space height. IMPRESSION: 1. No evidence for an acute displaced fracture of the lumbar spine. 2. Localized mild loss of the L5-S1 disc space height. Finalized by Srinath Myrick MD on 02/02/2024 1:24 PMSECTRAPAHelen Newberry Joy Hospital, Srinath Gamboa MD - 02/02/2024 EXAM: XR SPINE LUMBAR 2 OR 3 VWS CLINICAL INFORMATION: Acute right-sided low back pain with right-sided sciatica. COMPARISON: None. FINDINGS: The lumbar spine maintains a normal lordotic curvature. There is no malalignment within the lumbar spine. There is no significant loss of the vertebral body heights. There is no evidence for an acutedisplaced fracture. There is localized mild loss of the L5-S1 disc space height. IMPRESSION: 1. No evidence for an acute displaced fracture of the lumbar spine. 2. Localized mild loss of the L5-S1 disc space height. Finalized by Srinath Myrick MD on 02/02/2024 1:24 PM [facility] HospitalRadiology Study observation (narrative)[facility] Valley HospitalXR Lumbar spine 2 or 3 ViewsOrdered By: Srinath Myrick on 47-01-3906UjeVailfrTriHealth Bethesda Butler Hospital Work Phone: XR SPINE LUMBAR 2 OR 3 VWSon 17-38-0868FE SPINE LUMBAR 2 OR 3 VWSXR SPINE LUMBAR 2 OR 3 VWS EXAM: XR SPINE LUMBAR 2 OR 3 VWS CLINICAL INFORMATION: Acute right-sided low back pain with right-sided sciatica. COMPARISON: None. FINDINGS: The lumbar spine maintains a normal lordotic curvature. There is no malalignment within the lumbar spine. There is no significant loss of the vertebral body heights. There is no evidence for an acutedisplaced fracture. There is localized mild loss of the L5-S1 disc space height. IMPRESSION: 1. No evidence for an acute displaced fracture of the lumbar spine. 2. Localized mild loss of the L5-S1 disc space height. Finalized by Srinath Myrick MD on 02/02/2024 1:24 PMNormalKettering Memorial Hospital HCG ( test) Ql (U)on 73-12-4529Ygjm HCG ( test) Ql (U)Negative NormalNEGKettering Memorial HospitalComment on above:Performed By: #### 2106-3 #### [facility] ([id number]) [address] [place] [address] [place] [address]IUK MACROSCOPIC NURon 02-83-2947FKADTGASR NURNegativeNormalNEG Pro[facility] Hospital And Health CenterComment on above:Performed By: #### NUM #### [facility] ([id number]) [address] [place] [address] [place] [address]UKXMI/HGB NURNegativeNormalNEGKettering Memorial HospitalComment on above:Performed By: #### NUM #### [facility] ([id number]) [address] [place] [address] [place] [address]MNQLRBW NURNegativeNormalNEGKettering Memorial HospitalComment on above:Performed By: #### NUM #### [facility] ([id number]) [address] [place] [address] [place] [address]UVYAPPD NURNegativeNormalNEGProMatagorda Regional Medical CenterComment on above:Performed By: #### NUM #### [facility] ([id number]) [address] [place] [address], [place] [address]STKZKEWWM ESTERASE NURNegativeNormalNEGProMatagorda Regional Medical CenterComment on above:Performed By: #### NUM #### [facility] ([id number]) [address] [place] [address] [place] [address]FSCYCYG NURNegativeNormalNEGKettering Memorial HospitalComment on above:Performed By: #### NUM #### [facility] ([id number]) [address] [place] [address], [facility], [place] [address]ZK NUR7.6Grxmev9.0-8.5PDunlap Memorial HospitalComment on above:Performed By: #### NUM #### [facility] ([id number]) [address] [place] [address], [facility], [place] [address]ZRAUUBP NURNegativeNormalNEGProMatagorda Regional Medical CenterComment on above:Performed By: #### NUM #### [facility] ([id number]) [address] [place] [address], [facility], [place] [address]PSVVGAFG GRAVITY NUR1.642Jixqvr1.003-1.035ProMatagorda Regional Medical CenterComment on above:Performed By: #### NUM #### [facility] ([id number]) [address] [place] [address], [place] [address]PHHVACMTHFQD NUR0.2 eu/dLNormal<1.1PDunlap Memorial Hospital Comment on above:Performed By: #### NUM #### [facility] ([id number]) [address] [place] [address], [facility], [place] [address]NQU,APTIMA HPV,AGE GDLNon 92-13-1654ANL GDLN ACOG TESTINGNote. NOMS HealthcareComment on above:TESTS RESULT FLAG UNITS REF RANGE LAB Clinician Provided Cytology Information Source.............Cervix;Endocervix No. of containers..01 ThinPrep Vial Age Algo ACOG Clari... FLAG LEGEND: L-Low Normal,H-High Normal,LL-Alert Low,HH-Alert High <-Panic Low,>-Panic High,A-Abnormal,AA-Critical Abnormal Performed at: 01 =[address] [address] Fany Adair MD, HPV APTIMAPositiveAbnormalNegativeNOMS HealthcareComment on above:This nucleic acid amplification test detects fourteen high- risk HPV types (16,18,31,33,35,39,45,51,52,56,58,59,66,68) without differentiation. HPV GENOTYPE 16PositiveAbnormalNegativeNOMS HealthcareHPV GENOTYPE 18,45Negative NegativeNOMS HealthcareComment on above:Performed at: =[address] [id number] Visual Merchandiser: Fany Adair MD, Phone: [phone] Performed at: [address] [id number] Visual Merchandiser: Fany Adair MD, Phone: [phone] IGP, APTIMA HPV, RFX 16/18,45Note.NOMS HealthcareComment on above:TESTS RESULT FLAG UNITS REF RANGE LAB DIAGNOSIS: 02 NEGATIVE FOR INTRAEPITHELIAL LESION OR MALIGNANCY. Specimen adequacy: 02 Satisfactory for evaluation. Endocervical and/or squamous metaplastic cells (endocervical component) are present. Performed by: Pedro Joseph, Parts Interpreter (ASCP) . 02 Note: Note 02 The [...] <-Panic Low,>-Panic High,A-Abnormal,AA-Critical Abnormal Performed at: [address] [address] Fany Adair MD, Interpretation and review of laboratory resultsAbnoJeanes Hospital BRUSH-SPATULA CERVIX ENDOCERVIX CLINISYNCSSM DePaul Health CenterNo Panel InformationOrdered By: Lulu Gaona on 86-93-9516Kotpnlyzwmoyzq and review of laboratory resultsAbnoJeanes Hospital NOMS HealthcareXR foot LT min 3V*on 09-60-7215SL foot LT min 3V*[place] [address] XRay Report Signed Patient: Jeannine Raygoza MR#: [id number] 39 : 1990 Acct:[id number] Age/Sex: 30 / F ADM Date: 04/06/21 Loc: [facility] Room: Type: [facility] Attending Dr: Sobeida Claire METER INSTALLER-C Ordering Provider: LAZARO Jara Date of Service: 04/06/21 XR/XR foot LT min 3V*: Closed fracture of base of metatarsal bone of left foot with Copies to: MALA Jara-Jenny XR foot LT min 3V* 04/06/2021 8:28 [...] slight interval healing. Impression dictated by: Angel Blackmon M.D.04/06/2021 12:19 PM Dictation Location: [place] [address] Transcribed By: [facility] 04/06/21 1219 Dictated By: Angel Blackmon II, MD 04/06/21 1215 Signed By: 04/06/21 1219[facility] HospitalXR foot LT min 3V*[facility] [employer] Other XR foot LT min 3V*[facility] [employer] Other XR foot LT min 3V*[address] [facility] [employer] Other XR foot LT min 3V*[place] [address] [employer] Other XR foot LT min 3V*XRay ReportCity Emergency Hospital [employer] Other XR foot LT min 3V*[facility] [employer] Other XR foot LT min 3V*Patient: Jeannine Raygoza MR#: [id number] [place] [employer] Other XR foot LT min 3V*41[place] [facility] Other xr foot LT min 3V*: 1990 Acct:[id number] NSC Other XR foot LT min 3V*Age/Sex: 30 / F ADM Date: 04/06/21 [employer] Other XR foot LT min 3V*Loc: [facility] Room: Type: [facility] Other XR foot LT min 3V*Attending Dr: Sobeida Claire -[facility] Other XR foot LT min 3V*Ordering Provider: MALA Jara-[facility] Other XR foot LT min 3V*Date of Service: 04/06/21[place] Other XR foot LT min 3V* XR/XR foot LT min 3V*: Closed fracture of base of metatarsal [facility] Other XR foot LT min 3V*foot withPort [place] Other XR foot LT min 3V*Copies to: YESICA [facility]araDe[facility] Other XR foot LT min 3V*XR foot LT min 3V* 04/06/2021 8:28 AM [employer] Other XR foot LT min 3V*SIGNS AND SYMPTOMS: Status post left foot fifth metatarsal fracture, follow-upPort [place] Other XR foot LT min 3V*PROTOCOL: Frontal, lateral, and oblique radiographs of the left footPort [place] Other XR foot LT min 3V*COMPARISON: 03/16/2021[employer] Other XR foot LT min 3V*FINDINGS:[employer] Other XR foot LT min 3V*There is redemonstration of a tiny bony fragment separate from the tip of the base of the fifthSkillsTrak Other XR foot LT min 3V*metatarsal with mild bony bridging suggesting slight interval healing. There is decreasing softSkillsTrak Other XR foot LT min 3V*tissue swelling over the lateral aspect of the foot.[employer] Other XR foot LT min 3V* XR/XR foot LT min 3V*[employer] Other XR foot LT min 3V*IMPRESSION:[employer] Other XR foot LT min 3V*metatarsal with mild bony bridging suggesting slight interval healing.[employer] Other XR foot LT min 3V*Impression dictated by: Angel Blackmon M.D.04/06/2021 12:19 [facility] NSC Other XR foot LT min 3V*Dictation Location: [id number] NSC Other XR foot LT min 3V*Transcribed By: SUSI 04/06/21 [facility], [facility]–1983 [employer] Other XR foot LT min 3V*Dictated By: Angel Blackmon II, MD 04/06/[address] [place] [address] NSC Other XR foot LT min 3V*Signed By:[employer] Other XR foot LT min 3V*04/06/[address] [place], [place] [address] Other XR foot LT min 3V*on 73-71-0937IV foot LT min 3V* [facility] Main [employer] [address] [place] [address] XRay Report Signed Patient: Jeannine Raygoza MR#: [id number] 39 : 1990 Acct:[id number] Age/Sex: 30 / F ADM Date: 03/16/21 Loc: [facility] Room: Type: [facility] Attending Dr: Sobeida MARIE Ordering Provider: LAZARO [...] Ordonez Jr., D.O.03/16/2021 12:10 PM Dictation Location: [place] [address] Transcribed By: [facility] 03/16/21 1210 Dictated By: Vlad Ordonez Jr, DO 03/16/21 1209 Signed By: 03/16/21 1210[facility] HospitalXR foot LT min 3V*on 32-66-7752NY foot LT min 3V*[facility] [place] [address] XRay Report Signed Patient: Jeannine Raygoza MR#: [id number] 39 : 1990 Acct:[id number] Age/Sex: 30 / F ADM Date: 03/02/21 Loc: [facility] Room: Type: [facility] Attending Dr: Sobeida MARIE Ordering Provider: LAZARO [...] Angel Blackmon M.D.03/02/2021 8:31 AM Dictation Location: [place] [address] Transcribed By: [facility] 03/02/21830 Dictated By: Angel Blackmon II, MD 03/02/21829 Signed By: 03/02/21830[facility] HospitalCHLAMYDIA/N. GONORRHOEAE RNA, TMA, UROGENITALon 52-24-6203BIEIIFGHQ TRACHOMATIS RNA, TMA, UROGENITALNot detectedNormalNOT DETECTEDQuest DiagnosticsComment on above:Performed By: #### 17542, 49602 #### [facility] [address], [address] [place] [address] [employer]: Cheo Cruz MDCOMMENTNormalQuest DiagnosticsComment on above:Result Comment: The analytical performance characteristics of this assay, when used to test SurePath(TM) specimens have been determined by [employer]. The modifications have not been cleared or approved by the FDA. This assay has been validated pursuant to the CLIA regulations and is used for clinical purposes. For additional information, please refer to https://education.qianchengwuyou.Quantopian/faq/EIX104 (This link is being provided for information/ educational purposes only.)Performed By: #### 77565, 25795 #### [facility] [address], [address] [place] [address] [employer]: Cheo Cruz MDNEISSERIA GONORRHOEAE RNA, TMA, UROGENITALNot detectedNormalNOT DETECTEDQuest DiagnosticsComment on above:Performed By: #### 00471, 85241 #### [facility] [address], [address] [place] [address] [employer]: Cheo Merati MDSURESWAB(R) TRICHOMONAS VAGINALIS RNA, QL, TMA on 88-05-6417FWTVNAJG(R) TRICHOMONAS VAGINALIS RNA, QL, TMANot detectedNormalNOT DETECTEDQuest DiagnosticsComment on above:Result Comment: For additional information, please refer to http://education.[employer]/ faq/Trichomonastma (This link is being provided for informational/ educational purposes only.)Performed By: #### 42468, 55389 #### [facility] [address], [address] [place] [address] [employer]: Cheo Cruz MDCHLAMYDIA/NG RNA,TMA, W/RFL ALT TARGET,UROGEN on 67-24-8095RMGWEYTUQ TRACHOMATIS RNA, TMA, UROGENITALNormalQuest [facility] Comment on above:Result Comment: URINALYSIS SAMPLE WAS RECEIVED INSTEAD OF APTIMA TEST NOT PERFORMED No suitable specimen received. Please review the test requirements at [email or web address] By: #### 09360, 01317, 799 #### [facility] [address], [address] [place] [address] [employer]: Cheo Cruz MD #### 92908 #### [facility]/[address] [place], [place] [employer]: Sharif Conklin M.D.,PhDHEPATITIS C AB W/REFL TO HCV RNA, QN, PCRon 47-32-3721XKAWILAZH C RIKKGYATPdt-RvtpdhwgYsobdjDIW-ACACGSCEOiqls DiagnosticsComment on above:Performed By: #### 14600, 52500, 799 #### [facility] [address], [address] [place] [address] [employer]: Cheo Cruz MD #### 33727 #### [facility]/[address] [place], [place] [employer]: Sharif Conklin M.D.,PhDINDEX0.02Normal<1.00[facility] Comment on above:Result Comment: HCV antibody was non-reactive. There is no laboratory evidence of HCV infection. In most cases, no further action is required. However, if recent HCV exposure is suspected, a test for HCV RNA (test code 04658) is suggested. For additional information please refer to http://[employer]/faq/GUH64w0 (This link is being provided for informational/ educational purposes only.)Performed By: #### 68330, 39857, 799 #### [facility] [address], [address] [place], [place] [address] [employer]: Cheo Cruz MD #### 86983 #### [facility]/[place] [id number] [facility] [place] [address] [employer]: Sharif Conklin M.D.,PhDHIV 1/2 ANTIGEN/ANTIBODY,FOURTH GENERATION W/RFLon 74-92-2728GUB AG/AB, 4TH FQMMgs-KluikimlXcqrexGKY-RQTTEBVC Quest DiagnosticsComment on above:Result Comment: HIV-1 antigen and HIV-1/HIV-2 antibodies were not detected. [...] purpose. For additional information please refer to http://education.[employer]/faq/ETW893 (This link is being provided for informational/ educational purposes only.) The performance of this assay has not been clinically validated in patients less than 2 years old.Performed By: #### 48119, 06630, 799 #### [facility] [address], [address] [place] [address] [employer]: Cheo Cruz MD #### 81225 #### [facility] [address] [facility] [place], [place] [employer]: Sharif Conklin M.D.,PhDRPR (MONITOR) W/REFL TITERon 14-51-1863BUB (MONITOR) W/REFL PQJZEKin-NkakdxobCmdqdwSSK-NMPYHBMSBgvjz DiagnosticsComment on above:Performed By: #### 63125, 32516, 799 #### [facility] [address], [address] [place] [address] [employer]: Cheo Cruz MD #### 45896 #### [facility]/[address] [place], [place] [employer]: Sharif Conklin M.D.,PhDSURESWAB(R) TRICHOMONAS VAGINALIS RNA, QL, TMAon 88-89-1923PGJBLZNK(R) TRICHOMONAS VAGINALIS RNA, QL, TMANormalQuest DiagnosticsComment on above:Result Comment: URINALYSIS TRANSPORT NOT ACCEPTABLE. TEST NOT PERFORMED No suitable specimen received. Please review the test requirements at [email or web address] By: #### 99686, , 79 #### [facility] [place] [address] [employer]: Cheo Cruz MD #### 51660 #### [facility]/[address] [place], [place] [employer]: Sharif Conklin M.D.,PhDCOMPREHENSIVE METABOLIC PANELon 07-38-9391Qnatwdz [Mass/Vol]4.7 g/dLNormal3.6-5.1Quest DiagnosticsComment on above:Performed By: #### 10049, 7600 #### [facility] [address], [address] [place] [address] [employer]: Cheo Cruz MDAlbumin/Globulin [Mass ratio]2.1 {ratio}Normal 1.0-2.5Quest DiagnosticsComment on above:Performed By: #### 97014, 7600 #### [facility] of [address], [address] [place] [address] [employer]: Cheo Cruz MDALP [Catalytic activity/Vol]51 U/DKmxnge19-824 Quest DiagnosticsComment on above:Performed By: #### 82055, 7600 #### [facility] of [address], [address] [place] [address] [employer]: Cheo Cruz MDALT [Catalytic activity/Vol]15 U/LNormal6-29 [facility] DiagnosticsComment on above:Performed By: #### 83979, 7600 #### [facility] of [address], [address] [place] [address] [employer]: Cheo Cruz MDAST [Catalytic activity/Vol]13 U/MWzeisb08-25 Quest DiagnosticsComment on above:Performed By: #### 52090, 7600 #### [facility] of [address], [address] [place] [address] [employer]: Cheo Cruz MDBilirubin [Mass/Vol]0.5 mg/dLNormal0.2-1.2 Quest DiagnosticsComment on above:Performed By: #### 00480, 7600 #### [facility] of [address], [address] [place] [address] [employer]: Cheo Cruz MDBUN/CREATININE RATIONOT APPLICABLENormal6-22 [facility] DiagnosticsComment on above:Performed By: #### 19662, 7600 #### [facility] of [address], [address] [place] [address] [employer]: Cheo Cruz MDCalcium [Mass/Vol]9.8 mg/dLNormal8.6-10.2Quest DiagnosticsComment on above:Performed By: #### 09425, 7600 #### [facility] of [address], [address] [place] [address] [employer]: Cheo Cruz MDChloride [Moles/Vol]104 mmol/FBcbywx11-984 Quest DiagnosticsComment on above:Performed By: #### 17584, 7600 #### [facility] of [place] [address] [employer]: Cheo Cruz MDCO2 [Moles/Vol]26 mmol/TXvlzzm31-49Qwbsk DiagnosticsComment on above:Performed By: #### 23523, 7600 #### [facility] of [place] [address] [employer]: Cheo TOWNSENDreatinine [Mass/Vol]0.68 mg/dLNormal0.50-1.10 Quest DiagnosticsComment on above:Performed By: #### 04069, 7600 #### [facility] of [place] [address] [employer]: Cheo Cruz MDeGFR NON-AFR. ZAXFICTO248 mL/min/1.66q8Tpecqn> OR = 60Quest DiagnosticsComment on above:Performed By: #### 05520, 7600 #### [facility] [place] [address] [employer]: Cheo Cruz MDGFR/1.73 sq M.predicted among blacks MDRD (S/P/Bld) [Vol rate/Area]134 mL/min/{1.73_m2}Normal> OR = 60[facility] Comment on above:Performed By: #### 05776, 7600 #### [facility] of [place] [address] [employer]: Cheo Cruz MDGlobulin (S) [Mass/Vol]2.2 g/dLNormal1.9-3.7 Quest DiagnosticsComment on above:Performed By: #### 22990, 7600 #### [facility] of [place] [address] [employer]: Cheo Cruz MDGlucose [Mass/Vol]70 mg/eDWukryk80-22Mvran DiagnosticsComment on above:Result Comment: Fasting reference intervalPerformed By: #### 79270, 7600 #### [facility] of [place] [address] [employer]: Cheo Cruz MDPotassium [Moles/Vol]3.9 mmol/LNormal3.5-5.3 Quest DiagnosticsComment on above:Performed By: #### 24776, 7600 #### [facility] of [address], [address] [place] [address] [employer]: Cheo Cruz MDProtein [Mass/Vol]6.9 g/dLNormal6.1-8.1Quest DiagnosticsComment on above:Performed By: #### 87511, 7600 #### [facility] of [place] [address] [employer]: Cheo Cruz MDSodium [Moles/Vol]137 mmol/CBhewaj061-288Yrows DiagnosticsComment on above:Performed By: #### 72892, 7600 #### [facility] of [place] [address] [employer]: Cheo Cruz MDUrea nitrogen [Mass/Vol]17 mg/dLNormal7-25 Quest DiagnosticsComment on above:Performed By: #### 88378, 7600 #### [facility] of [place] [address] [employer]: Cheo Cruz MDLIPID PANEL, [facility] 63-91-0802Bwensqicvyk [Mass/Vol]186 mg/dLNormal<200Quest DiagnosticsComment on above:Order Comment: FASTING:YES FASTING: YESPerformed By: #### 30511, 7600 #### [facility] of [place] [address] [employer]: Cheo Cruz MDCholesterol in HDL [Mass/Vol]72 mg/dLNormal> OR = 50Quest DiagnosticsComment on above:Order Comment: FASTING:YES FASTING: YESPerformed By: #### 43336, 7600 #### [facility] [address], [address] [place] [address] [employer]: Cheo TOWNSENDholesterol in LDL [Mass/Vol]99 mg/dLNormal Quest DiagnosticsComment on above:Order Comment: FASTING:YES FASTING: YESResult Comment: Reference range: <100 Desirable range <100 mg/dL for primary prevention; <70 mg/dL for patients with CHD or diabetic patients with > or = 2 CHD risk factors. LDL-C is now calculated using the Jessica calculation, which is a validated novel method providing better accuracy than the Friedewald equation in the estimation of LDL-C. Stephan SS et al. PAT. 2013;310(19): 5906-2107 (http://education.[employer]/faq/GRL019)Performed By: #### 32175, 0 #### [facility] [address], [address] [place] [address] [employer]: Cheo Learystosmar.total/Cholesterol in HDL [Mass ratio]2.6 {ratio}Normal<5.0Quest DiagnosticsComment on above:Order Comment: FASTING:YES FASTING: YESPerformed By: #### 23004, 7600 #### [facility] [address], [address] [place] [address] [employer]: Cheo DALY HDL WKBTZUXYCEX949 mg/dL (calc)Normal<130 Quest DiagnosticsComment on above:Order Comment: FASTING:YES FASTING: YESResult Comment: For patients with diabetes plus 1 major ASCVD risk factor, treating to a non-HDL-C goal of <100 mg/dL (LDL-C of <70 mg/dL) is considered a therapeutic option.Performed By: #### 26100, 7600 #### [facility] [address], [address] [place] [address] [employer]: Cheo Cruz MDTriglyceride [Mass/Vol]60 mg/dLNormal<150Quest DiagnosticsComment on above:Order Comment: FASTING:YES FASTING: YESPerformed By: #### 54473, 7600 #### [facility] [address], [address] [place] [address] [employer]: Cheo Cruz MDIMAGE-GUIDED PAP W/AGE BASED SCR PROTOCOLSon 06-18-6314ZOSUSQGVkfxvpKsyoi DiagnosticsComment on above:Result Comment: This order for age-based cervical cancer and STI screening follows ACOG guidelines(PB 168, 140, DXP461). See individual assays for performing site location.Performed By: #### 68637, 73550 #### [facility]-[address], [address] [place] [address] [employer]: Cheo [place] Comment: EXPLANATORY NOTE: The Pap is a screening test for cervical cancer. It is not a diagnostic test and is subject to false negative and false positive results. It is most reliable when a satisfactory sample, regularly obtained, is submitted with relevant clinical findings and history, and when the Pap result is evaluated along with historic and current clinical information.Performed By: #### 33241, 57131, 799 #### [facility] [address], [address] [place] [address] [employer]: Cheo Cruz MD #### 72347 #### [facility]/[place] [address] [facility] [address] [place] [employer]: Sharif Conklin M.D.,PhDTHINPREP TIS PAP AND HPV mRNA E6/E7 REFLEX HPV 16,18/45on 77-64-7205JAFXJDZF INFORMATION:NormalQuest Diagnostics Comment on above:Result Comment: Routine examPerformed By: #### 37632, 50674, 799 #### [facility] [address], [address] [place] [address] [employer]: Cheo Cruz MD #### 34887 #### [facility]/[place] [address] [facility] [address] [place] [employer]: Sharif Conklin M.D.,PhDCOMMENT:NormalQuest DiagnosticsComment on above:Result Comment: This Pap test has been evaluated with computer assisted technology.Performed By: #### 55742, , 799 #### [facility] [address], [address] [place] [address] [employer]: Cheo Cruz MD #### 34994 #### [facility]/[address] [place] [employer]: Sharif Conklin M.D.,PhDCYTOTECHNOLOGIST:NormalQuest DiagnosticsComment on above:Result Comment: [facility], CT(ASCP) CT screening location: [place] [address].Performed By: #### 77618, , #### [facility] [address], [address] [place] [address] [employer]: Cheo Cruz MD #### 95085 #### [facility]/[address] [place] [employer]: Sharif Conklin M.D.,PhDHPV mRNA E6/E7Not detectedNormalNot DetectedQuest DiagnosticsComment on above:Result Comment: This test was performed using the APTIMA HPV Assay ([employer] This assay detects E6/E7 viral messenger RNA (mRNA) from 14 high-risk HPV types (16,18,31,33,35,39,45,51,52,56,58,59,66,68). The analytical performance characteristics of this assay have been determined by [employer]. The modifications have not been cleared or approved by the FDA. This assay has been validated pursuant to the CLIA regulations and is used for clinical purposes. NO COLLECTION DATE RECEIVED. WE HAVE USED THE DATE THE SPECIMEN WAS RECEIVED BY THIS LABORATORY THE COLLECTION DATE. IF THIS IS INCORRECT, PLEASE CONTACT CLIENT SERVICES. PHONE NUMBER: [phone] By: #### 91038, , 79 #### [facility] [address], [address] [place], [place] [address] [employer]: Cheo Cruz MD #### 79281 #### [facility]/[place] [id number] [facility] [place], [place] [employer]: Sharif Conklin M.D.,PhDINTERPRETATION/RESULT:NormalQuest DiagnosticsComment on above:Result Comment: Negative for intraepithelial lesion or malignancy.Performed By: #### 58914, , 799 #### [facility] of [address], [address] [place], [place] [address] [employer]: Cheo Cruz MD #### 18162 #### [facility]/[address] [place], [place] [employer]: Sharif Conklin M.D.,PhDLMP:NormalQuest DiagnosticsComment on above:Result Comment: None givenPerformed By: #### 60258, , 79 #### [facility] [address], [address] [place] [address] [employer]: Cheo Cruz MD #### 26312 #### [facility]/[address] [place], [place] [employer]: Sharif Conklin M.D.,PhDPREV. BX:NormalQuest [facility]ostics Comment on above:Result Comment: None givenPerformed By: #### 48527, , 79 #### [facility] of [address], [address] [place], [place] [address] [employer]: Cheo Cruz MD #### 65770 #### [facility]/Psychiatric [facility] [place] [employer]: Sharif Conklin M.D.,PhDPREV. PAP:NormalQuest [facility] Comment on above:Result Comment: None givenPerformed By: #### 35839, , 799 #### [facility] of [address], [address] [place] [address] [employer]: Cheo Cruz MD #### 31518 #### [facility]/[place] [address]25 [facility] [place] [employer]: Sharif Conklin M.D.,PhDSOURCE:NormalQuest DiagnosticsComment on above:Result Comment: None givenPerformed By: #### 36878, , 799 #### [facility] of [address], [address] [place] [address] [employer]: Cheo Cruz MD #### 23587 #### [facility]/[place] [address]25 [facility] [place] [employer]: Sharif Conklin M.D.,PhDSTATEMENT OF ADEQUACY:NormalQuest DiagnosticsComment on above:Result Comment: Satisfactory for evaluation. Endocervical/transformation zone component absent.Performed By: #### 70142, , 79 #### [facility] [address], [address] [place] [address] [employer]: Cheo Cruz MD #### 24373 #### [facility]/[place] [address] [facility] [place] [employer]: Sharif Conklin M.D.,PhDCovid-19 PCR ([facility]VDEDITH [facility])on 01-15-2020 Covid-19NOT DETECTEDNormalNOT DETECTEDThe Marietta Osteopathic ClinicComment on above: Result Comment: This test is not yet approved or cleared by the [place] FDA. When there are no FDA-approved or cleared tests available, and other criteria are met, FDA can make tests available under an emergency access mechanism called an Emergency Use Authorization (EUA). The EUA for this test is supported by the Railroad Operating Engineer of Health and Human Service's (HHS's) declaration [...] which the test may no longer be used).Performed By: #### CVDTBH #### [facility] [address] [place] [address] Soraya Tyler [facility] Bryan HospitalComment on above: Result Comment: This test is not yet approved or cleared by the [place] FDA. When there are no FDA-approved or cleared tests available, and other criteria are met, FDA can make tests available under an emergency access mechanism called an Emergency Use Authorization (EUA). The EUA for this test is supported by the Railroad Operating Engineer of Health and Human Service?s (HHS?s) declaration [...] the context of a patients recent exposures andthe presence of clinical signs and symptoms consistent with SARS-CoV-2.Performed By: #### CVDTBH #### [facility] [address] [place] [address] Soraya Miller Vital Signs Date TimeVital SignValuePerforming ShwohfndyQgjedyhr61-93-8096 14:53-0400Body drdhum685.5 cmDonna Barajas APRN-GAS PIT WORKER Work Phone: [facility] Ynhohm85-47-6584 14:53-0400Body mass index (BMI) [Ratio]24.32 kg/m2Donna Barajas SOLUTION COORDINATOR-GAS PIT WORKER Work Phone: [facility]10-28-2025 14:53-0400Body jtbpxuvctwm73.7 [degF]Donna Barajas SOLUTION COORDINATOR-GAS PIT WORKER Work Phone: [facility]10-28-2025 14:53-0400Body cejaqw80.33 kgDonna Trotterzer SOLUTION COORDINATOR-GAS PIT WORKER Work Phone: [facility]10-28-2025 14:53-0400Diastolic blood bqitebbm11 mm[Hg]Donna Tedotzer SOLUTION COORDINATOR-GAS PIT WORKER Work Phone: [facility] [employer] Yshvlj67-23-8477 14:53-0400Heart rate 75 /minSaadle Krotzer SOLUTION COORDINATOR-GAS PIT WORKER Work Phone: [facility]10-28-2025 14:53-0400 Respiratory rate18 /minKyle Krotzer SOLUTION COORDINATOR-GAS PIT WORKER Work Phone: [facility]10-28-2025 14:53-7233TjF7% (BldA) [Mass fraction]99 %Donna Tedotzer SOLUTION COORDINATOR-GAS PIT WORKER Work Phone: [facility]10-28-2025 14:53-0400Systolic blood gdglskoj122 mm[Hg]Donna Tedotzer SOLUTION COORDINATOR-GAS PIT WORKER Work Phone: [facility] [employer] Emfgvi35-40-4356 15:42-0400Body mass index (BMI) [Ratio]24.33 kg/w0Yoynn Spana DO Work Phone: [facility] CenterCcbdrruovz73-60-8762 15:42-0400Body .33 kgCorey Sapna DO Work Phone: [facility] CenterUzuutmxgnm30-80-1016 15:42-0400Diastolic blood nhoahdch02 mm[Hg]Dyana Sapna DO Work Phone: [facility] CenterDdqjabjaxl30-37-5688 15:42-0400Systolic blood gdnizcjl813 mm[Hg]Dyana Sapna DO Work Phone: [facility] CenterPgetvjvjon78-36-1453 15:22-0400Body mnjtfu192.5 cmJered Cramer SOLUTION COORDINATOR-GAS PIT WORKER Work Phone: [facility]06-12-2025 15:22-0400Body mass index (BMI) [Ratio]24.8 kg/x2ZlchucJered Cramer APRN-GAS PIT WORKER Work Phone: [facility]06-12-2025 15:22-0400Body dwsknfwytzw24.7 [degF]Jered Cramer SOLUTION COORDINATOR-GAS PIT WORKER Work Phone: [facility] [employer] Nsnqnc15-51-2886 15:22-0400Body .51 kgJered Cramer APRN-GAS PIT WORKER Work Phone: [facility]06-12-2025 15:22-0400Diastolic blood lvkaeuua01 mm[Hg]Jered Cramer APRN-GAS PIT WORKER Work Phone: [facility]06-12-2025 15:22-0400Heart rate 76 /minBrjules Cramer APRN-GAS PIT WORKER Work Phone: [facility] [employer] Tgukmz88-45-9287 15:22-0400 Respiratory rate18 /minBrjules Cramer APRN-GAS PIT WORKER Work Phone: [facility] [employer] Jjbgdh05-35-4499 15:22-2576YkE8% (BldA) [Mass fraction]99 %Jered Cramer APRN-GAS PIT WORKER Work Phone: [facility] [employer] Qegapb16-20-3021 15:22-0400Systolic blood apevruyj768 mm[Hg]Jered Cramer APRN-GAS PIT WORKER Work Phone: [facility]01-17-2025 08:39-0500Body .5 cmJered Cramer APRN-GAS PIT WORKER Work Phone: [facility] [employer] Lirioo66-86-3951 08:39-0500Body mass index (BMI) [Ratio]24.18 kg/j3CbjpbzJered Cramer APRN-GAS PIT WORKER Work Phone: [facility] [employer] Bypeaf91-30-5653 08:39-0500Body cyxtvlgejsx65.5 [degF]Jered Cramer APRN-GAS PIT WORKER Work Phone: [facility] [employer] Ecismd20-53-4656 08:39-0500Body .97 kgBrjules Cramer SOLUTION COORDINATOR-GAS PIT WORKER Work Phone: [facility]01-17-2025 08:39-0500Diastolic blood gpghrrdu03 mm[Hg]Jered Cramer SOLUTION COORDINATOR-GAS PIT WORKER Work Phone: [facility] [employer] Jvpcvo47-18-6279 08:39-0500Heart rate 72 /minBrjules Cramer SOLUTION COORDINATOR-GAS PIT WORKER Work Phone: [facility] [employer] Hrwyvs88-76-4592 08:39-0500 Respiratory rate18 /minBrjules Cramer SOLUTION COORDINATOR-GAS PIT WORKER Work Phone: [facility]01-17-2025 08:39-1152ZvK2% (BldA) [Mass fraction]100 %Jered Cramer SOLUTION COORDINATOR-GAS PIT WORKER Work Phone: [facility]01-17-2025 08:39-0500Systolic blood pcekljbl290 mm[Hg]Jered Cramer SOLUTION COORDINATOR-GAS PIT WORKER Work Phone: [facility] [employer] Uouzde47-47-1733 14:03-0400Body mass index (BMI) [Ratio]25.42 kg/i9Jtuga Sapna DO Work Phone: [facility] WestOytqtetjlz81-76-6159 14:03-0400Body .05 kgCorey Sapna DO Work Phone: [facility]Saint [facility] WestAqbvliivqz18-60-1675 14:03-0400Diastolic blood omaomcfm70 mm[Hg]Dyana Sapna DO Work Phone: noSaint [facility] WestZhcpubcney17-84-7005 14:03-0400Systolic blood vqjikllk430 mm[Hg]Dyana Sapna DO Work Phone: [facility] Encounters Encounter DateEncounter TypeCare ProviderFacilityStart: 12-10-2024 End: 13-96-3150Albrqm outpatient visit 25 minutesDonna Barajas SOLUTION COORDINATOR-GAS PIT WORKER Work Phone: [facility] Family MedicineComment on above:Numbness and tingling in both hands (Primary Dx); Strain of other flexor muscle, fascia and tendon at forearm level, left arm, initial encounterStart: 12-10-2024 End: 59-68-8876blrydjqxklQHHG D [facility] Ambulatory PPGStart: 12-02-2024 End: 85-60-1655Uemharu encounter procedureCorey Sapna DO Work Phone: [facility] Work Phone: Start: 12-02-2024 End: 59-47-5647Tswumwti preventive med est patient 18-39 yrsCorey Sapna DO Work Phone: [facility] Johann OBGYNComment on above:Well woman exam with routine gynecological examStart: 12-02-2024 End: 22-20-8430vhpzpnyxsnVIRGZ FAZIONot AvailableStart: 12-02-2024 End: 44-90-0719Reglnn flowsheetCorey Sapna DO Work Phone: [facility] Johann OBGYNStart: 12-02-2024 End: 89-06-9116Erlwtj flowsheetCorey Sapna DO Work Phone: [facility] M[facility]ie OBGYNStart: 12-02-2024 End: 61-51-6418Ivwltfpdj Result EncounterCorey Sapna DO Work Phone: [facility] External Department UnsolicitedStart: 07-25-2024 End: 73-20-7622Pfkzyn outpatient visit 15 minutesJered Cramer APRN-LINDA Work Phone: [facility] Family MedicineComment on above:Suprapubic pain, acute (Primary Dx); UTI symptomsStart: 07-25-2024 End: 15-65-4560sntgygwssmVQFCGD L RAHALINAUniversity Hospitals [facility] Ambulatory PPGStart: 38-56-0336euowlcicmaKQGYGP L RAUCHOhioHealth Grove City Methodist Hospitaltart: 03-18-2024 ambulatoryACMC Healthcare Systemtart: 03-01-2024 End: 83-25-6888ntmdbmjhftQCQRKHSelect Medical Specialty Hospital - Southeast Ohiotart: 12-85-5792Fwazswsne for general adult medical examination without abnormal findingsSelect Medical Specialty Hospital - Columbustart: 03-01-2024 End: 90-97-1670Gsorqvc encounter statusJered Cramer SOLUTION COORDINATOR-GAS PIT WORKER Work Phone: [facility] SystemStart: 03-01-2024 End: 98-55-7793Rglcvnap preventive med est patient 18-39 yrsJered Cramer SOLUTION COORDINATOR-GAS PIT WORKER Work Phone: [facility] - Family MedicineComment on above:Wellness examination (Primary Dx); Acute bilateral low back pain without sciatica; Influenza vaccination administered at current visit; Skin cancer screening; Skin tags, multiple acquiredStart: 03-01-2024 End: 45-86-7664pnjdlwjukhHQOFJIMonterey Park Hospital Ambulatory PPGStart: 45-20-1428Oqgvjetzq for general adult medical examination without abnormal findingsFillmore County Hospital Ambulatory PPGStart: 02-05-2024 ambulatoryACMC Healthcare Systemtart: 02-02-2024 End: 88-82-2864pkwpwkhwtpCELHHTJackson General Hospitaltart: 02-01-2024 End: 11-86-6792Hdwagv outpatient visit 15 minutesJered Cramer LALO-GAS PIT WORKER Work Phone: [facility] - Family MedicineComment on above:Acute right-sided low back pain with right-sided sciatica (Primary Dx)Start: 02-01-2024 End: 18-98-4618myjnahtxmlQRLYTMMonterey Park Hospital Ambulatory PPGStart: 02-01-2024 End: 85-60-9278Mqquagvgj department patient visitACMC Healthcare Systemtart: 11-29-2023 End: 72-20-3885Tvhcld flowsheetCorey Sapna DO Work Phone: [facility] BCP OBStart: 11-29-2023 End: 38-63-4608Ralkpt flowsheetCorey Sapna DO Work Phone: [facility] BCP OBStart: 11-29-2023 End: 52-82-1960Dcutmvypi Result EncounterCorey Sapna DO Work Phone: [facility] External Department UnsolicitedStart: 11-29-2023 End: 00-19-3896Ixxlotk encounter procedureCorey Sapna DO Work Phone: [facility] Work Phone: Start: 11-29-2023 End: 21-31-7695Ifxxruge preventive med est patient 18-39 yrsCorey Sapna DO Work Phone: [facility] BCP OBComment on above:Well woman exam with routine gynecological examStart: 04-06-2021 End: 27-11-0283drknzvaulbJmxqbiax [place] Other [facility] Other Start: 77-53-4824Ryoaqf follow up visit related to original [facility] Newsome OrthopedicsStart: 01-15-2020 End: 14-02-8373Tgnssrb encounter procedureNGOZI SOLISFacility:H1 Procedures DateProcedureProcedure DetailPerforming ClinicianStart: 36-61-2276Wryjm depression screening assessmentDonna Barajas SOLUTION COORDINATORPlanStan Work Phone: Start: 66-80-0006DRY,APTIMA HPV,AGE GDLNCorey Sapna DO Work Phone: Start: 07-25-2024 End: 12-47-8139Qqzpu dip stick/tablet rgnt non-auto w/o micrscpBriana Miranda Cramer SOLUTION COORDINATOR-GAS PIT WORKER Work Phone: Start: 10-04-5642Rxchl depression screening assessment Jered Cramer SOLUTION COORDINATORPlanStan Work Phone: Start: 71-19-9618Rwkhw depression screening assessment Jered Cramer SOLUTION COORDINATOR-GAS PIT WORKER Work Phone: Start: 40-65-4835DHF,APTIMA HPV,AGE GDLNCorey SapnaWaywire Networks Work Phone: Start: 47-79-4452Shudmxdfpdv observation [Identifier] in Cervix by Cyto stainCorey Sapna DO Work Phone: Start: 45-76-9777PEH TEST, EXTERNALCorey Sapna DO Work Phone: Plan of Treatment DateCare ActivityDetailAuthorStart: 45-10-7313MYkQ,Tdap and Td Vaccines (2 - Td or Tdap)DTaP,Tdap and Td Vaccines (2 - Td or Tdap)[facility] SystemStart: 98-97-3922Egmznxitc for malignant neoplasm of cervixNOMS HealthcareStart: 12-11-2025 End: 11-03-2136Ahkfvxh encounter emavfozsp84/29/2026 2:00 PM EDT Procedure Visit SACHI LAWRENCE [address] [place] [address] Skye Reveles PA [address] [place], [place] [id number] SACHI DAVIDtart: 69-38-1982Sbezp BMI ScreeningAdult BMI ScreeningProKettering Health Hamilton SystemStart: 12-10-2025 Depression ScreeningDepression ScreeningProKettering Health Hamilton SystemStart: 12-10-2025 Tobacco ScreeningTobacco ScreeningProKettering Health Hamilton SystemStart: 09-16-5112Gktsw BMI ScreeningAdult BMI ScreeningProKettering Health Hamilton SystemStart: 07-25-2025 Depression ScreeningDepression ScreeningProKettering Health Hamilton SystemStart: 07-25-2025 Tobacco ScreeningTobacco ScreeningProKettering Health Hamilton SystemStart: 34-20-5360Yuzai BMI ScreeningAdult BMI ScreeningProKettering Health Hamilton SystemStart: 03-01-2025 Depression ScreeningDepression ScreeningProKettering Health Hamilton SystemStart: 01-31-2025 Adult BMI ScreeningAdult BMI ScreeningProMedica Health SystemStart: 01-31-2025 Tobacco ScreeningTobacco ScreeningSelect [facility]ty [facility] SystemStart: 01-16-2025 End: 93-38-1882Ueglgds encounter mqlmmujyk35/04/2025 1:40 PM EST Office Visit [facility] [address] [place] [address] Donna Barajas, SOLUTION COORDINATOR-GAS PIT WORKER [address] [facility] [address] [place] [address] [facility] MedicineStart: 12-02-2024 End: 33-18-8801Cgclhwc encounter procedureNOMS BCP OBComment on above:Arrived Start: 71-44-3285Ldaaxtwvu vaccinationSelect Medical Specialty [facility] SystemStart: 07-25-2024 End: 04-44-3982VH Pelvis transvaginalUltrasound transvaginal non OB Imaging Routine Suprapubic pain, acute Expected: 07/25/2024, Expires: 07/26/2025 [facility] Work Phone: Comment on above:Expected: 07/25/2024, Expires: 07/26/2025Start: 03-01-2024 End: 71-14-5437Lsuxpms encounter ouflzwogh73/17/2025 8:40 AM EST Office Visit [facility] [address] [place] [address] Jered Cramer, SOLUTION COORDINATOR-GAS PIT WORKER [address] [place] [address] [facility] MedicineStart: 11-29-2023 End: 56-96-9554Bjxvdbx encounter eusccobyo09/16/2024 2:00 PM EDT Office Visit [facility] [address] [place] [address] Dyana Alejo DO [address] [place] [address] [facility] OBComment on above:ArrivedStart: 95-35-1495Rjgjytgho vaccinationJORDAN VALLEY [facility]ENTER HealthcareStart: 85-77-0252EUFRI-19 Vaccine (3 - Pfizer risk series)COVID-19 Vaccine (3 - Pfizer risk series)[facility] Hospitaltart: 42-94-3781Pmsilqvil for malignant neoplasm of cervixNOKS HealthcareStart: 36-77-4112Steqevhwy for malignant neoplasm of cervixPap Smear [facility] HealthcareStart: 70-37-3396PCaX,Tdap and Td Vaccines (1 - Tdap)DTaP,Tdap and Td Vaccines (1 - Tdap)[facility] Hospitaltart: 35-76-3196Dbydigndss ScreeningDepression ScreeningProProtestant Deaconess HospitalCytology Cervical or vaginal smear or scraping studyPap Smear Pathology and Cytology Routine Well woman exam with routine gynecological exam Ordered: 11/29/2023[facility] Work Phone: comment on above:Ordered: 11/29/2023ytology Cervical or vaginal smear or scraping studyPap Smear Pathology and Cytology Routine Well woman exam with routine gynecological exam Ordered: 12/02/2024[facility] Work Phone: comment on above:Ordered: 12/02/2024Human papilloma virus DNA [Presence] in Unspecified specimen by Probe with amplificationHPV DNA probe, amplified Microbiology Routine Well woman exam with routine gynecological exam Ordered: 11/29/2023[facility] HealthcareComment on above:Ordered: 11/29/2023 Human papilloma virus DNA [Presence] in Unspecified specimen by Probe with amplificationHPV DNA probe, amplified Microbiology Routine Well woman exam with routine gynecological exam Ordered: 12/02/2024[facility] CenterComment on above: Ordered: 12/02/2024 Immunizations Immunization DateImmunizationNotesCare TvhgraafPvdfhoup40-81-5365cnuobqjkx, seasonal, injectable, preservative freeJered Cramer SOLUTION COORDINATOR-GAS PIT WORKER Work Phone: [facility] HospitalMknusd02-69-5380Naidykiyaxbs, In Clinic,; Translations: [Drug or medicament (substance)]Jered Shoaib SOLUTION COORDINATOR-GAS PIT WORKER Work Phone: [facility] HospitalTenlegs Uhmiqf68-52-4412ywchszkqq virus vaccine, unspecified formulationJered Cramer SOLUTION COORDINATOR-GAS PIT WORKER Work Phone: [facility] CenterIguanaFix [facility] Payers DatePayer CategoryPayerPolicy [id number] Care Other (unspecified)[facility] Member Subscriber Plan / Payer (Effective 2017-Present) Name: Jeannine Raygoza Relation to Subscriber: Self Name: Jeannine Raygoza Payer ID: [id number] (NAIC) Type: Not on file Address: [id number] [place] [id number] Health [id number]427.71343-30-7544Nzurjnb Health [id number] 2..1.533160.3.579.2.593 [id number] 2..1.531214.3.579.2.785125-47-1749Bzbgakz [id number] 2..1.568072.3.57[id number] 2..1.797692.3.57[id number] 2.0.1.129267.3.57[id number] 2.0.1.698522.3.57[id number] 2.16.840.1.200736.3.57[id number] 2.16.840.1.884094.3.57[id number] 2.16.840.1.668219.3.57[id number] 2..840.1.226991.3.57[id number] 2.16.840.1.807871.3.57[id number] 2.16.840.1.046244.3.579.[id number] Social History DateTypeDetailFacilityUnknown if ever smokedPort Charlotte NSC Other Start: 02-01-2024 End: 42-18-2282Vcu Assigned At BirthPort Charlotte NSC Other Tobacco smoking status NHISTobacco smoking consumption unknownJORDAN VALLEY MEDICAL CENTER HealthcareStart: 41-17-4336Tfs assigned at birthNot on fileJORDAN VALLEY MEDICAL CENTER HealthcareStart: 69-12-6745Ajgtlyd smoking status NHISNever smoked tobacco [facility] SystemStart: 63-00-2360Mbzrbzb use and exposureSmokeless tobacco non-userSelect Medical Specialty Hospital [facility] SystemStart: 02-01-2024 End: 41-87-1403Kvrigavfq beverage intakeLifetime non-drinker (finding)[facility] SystemStart: 02-01-2024 End: 37-69-4424Ijfmsqq of Social functionSelect Medical Specialty Hospital [facility] SystemStart: 07-17-9622HvhhdamduXpvcwbaYyfWwcpnr [facility] SystemStart: 19-44-6441CwaOtnvmu (finding)[facility] Clinical Notes 04-06-2021 to 12-10-2024 Note Date & AalgOezyQtorzvdr21-65-1634 History of Present illness Narrative* Donna Barajas, SOLUTION COORDINATOR-GAS PIT WORKER - 12/10/2024 3:00 PM EDT IM PROGRESS NOTE Patient - Jeannine Raygoza Age - 34 y.o. - 1990 [facility] # - [id number] ASSESSMENT & PLAN 1. Numbness and tingling in both hands (Primary) -negative for carpal tunnel -strain of left arm - predniSONE (DELTASONE) 50 mg tablet; Take 1 tablet (50 mg total) by mouth in the morning for 5 days. Dispense: 5 tablet; Refill: 0 - ibuprofen (MOTRIN) 800 mg tablet; Take 1 tablet (800 mg total) by mouth every 8 (eight) hours as needed for pain. Dispense: 60 tablet; Refill: 2 2. Strain of other flexor muscle, fascia and tendon at forearm level, left arm, initial encounter -FMLA paperwork filled out for intermittent FMLA -may take 3 days of month off at 1 time per call off -patient to follow up in 1 month -we will add physical therapy if not improved -told patient to suggest to employer that she should probably be rotated off that job she will prevent further repetitive use injury - predniSONE (DELTASONE) 50 mg tablet; Take 1 tablet (50 mg total) by mouth in the morning for 5 days. Dispense: 5 tablet; Refill: 0 - ibuprofen (MOTRIN) 800 mg tablet; Take 1 tablet (800 mg total) by mouth every 8 (eight) hours as needed for pain. Dispense: 60 tablet; Refill: 2 Subjective The following portions of the patient's history were reviewed and updated as appropriate: allergies, current medications, past family history, past medical history, past social history, past surgicalhistory and problem list. She is here for numbness and tingling to bilateral hands. She was moved to a job with repetitive movements and hand grasping. 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 [facility]. Hand Pain The incident occurred more than 1 week ago. The incident occurred at work. The injury mechanism wasrepetitive motion. The pain is present in the right hand, right fingers, left hand, left fingers, right forearm and left forearm. The quality of the pain is described as burning. The pain does not radiate. The pain is at a severity of 4/10. The pain is moderate. The pain has been Fluctuating since the incident. Associated symptoms include muscle weakness, numbness and tingling. Pertinent negatives include no chest pain. The symptoms are aggravated by movement and lifting. She has tried rest forthe symptoms. The treatment provided mild relief. Review of Systems Constitutional: Negative for activity change and appetite change. HENT: Negative for trouble swallowing. Respiratory: Negative for shortness of breath. Cardiovascular: Negative for chest pain. Gastrointestinal: Negative for abdominal pain. Genitourinary: Negative for difficulty urinating. Musculoskeletal: Positive for arthralgias and myalgias. Negative for gait problem. Neurological: Positive for tingling and numbness. Negative for dizziness, tremors, light-headednessand headaches. Psychiatric/Behavioral: Positive for sleep disturbance (wakes up with pain and pins and needls to bilateral hands.). Exam BP 166/66 (BP Site: Left Arm, BP Postition: Sitting, BP CUFF SIZE: M (9-13 inches)) Pulse 75 Temp 36.5 C (97.7 F) (Oral) Resp 18 Ht 157.5 cm (5' 2.01 ) Wt 60.3 kg (133 lb) SpO2 99% BMI 24.32 kg/m Physical Exam Vitals and nursing note reviewed. Constitutional: General: She is not in acute distress. HENT: Mouth/Throat: Mouth: Mucous membranes are moist. Cardiovascular: Rate and Rhythm: Normal rate and regular rhythm. Pulses: Normal pulses. Pulmonary: Effort: Pulmonary effort is normal. Breath sounds: Normal breath sounds. Musculoskeletal: Right forearm: Tenderness present. Left forearm: Tenderness present. Right wrist: Normal. Left wrist: Tenderness present. No swelling, deformity, effusion, snuff box tenderness or crepitus.Normal range of motion. Normal pulse. Left hand: No bony tenderness. Normal range of motion. Normal strength. Normal sensation. There is no disruption of two-point discrimination. Normal capillary refill. Normal pulse. Right lower leg: No edema. Left lower leg: No edema. Comments: Negative tinel's sign and Phalen's test Skin: General: Skin is warm and dry. Capillary Refill: Capillary refill takes less than 2 seconds. Neurological: General: No focal deficit present. Mental Status: She is alert. Meds Current Outpatient Medications: levonorgestreL (MIRENA) 21 mcg/24hr (up to 8 yrs) 52 mg IUD, 1 each by intrauterine route once. Inserted Nov - , Disp: , Rfl: ibuprofen (MOTRIN) 800 mg tablet, Take 1 tablet (800 mg total) by mouth every 8 (eight) hours as needed for pain., Disp: 60 tablet, Rfl: 2 lidocaine (LIDODERM) 5 %, Place 1 patch on the skin daily. Remove & Discard patch within 12 hours or as directed by MD (Patient not taking: Reported on 12/10/2024), Disp: 30 patch, Rfl: 0 predniSONE (DELTASONE) 50 mg tablet, Take 1 tablet (50 mg total) by mouth in the morning for 5 days., Disp: 5 tablet, Rfl: 0 Lab Results No visits with results within 1 Month(s) from this visit. Latest known visit with results is: Office Visit on 07/25/2024 Component Date Value Ref Range Status External Poct Urine Color 07/25/2024 yellow Final External Poct Urine Appearance 07/25/2024 clear Final External Poct Urine Glucose 07/25/2024 Negative Final External Poct Urine Bilirubin 07/25/2024 Negative Final External Poct Urine Ketones 07/25/2024 Negative Final External Poct Urine Specific Gravi* 07/25/2024 1.015 Final External Poct Urine Blood 07/25/2024 Negative Final External Poct Urine Ph 07/25/2024 7.0 Final External Poct Urine Protein 07/25/2024 Negative Final External Poct Urine Urobilinogen 07/25/2024 0.2 Final External Poct Urine Nitrite 07/25/2024 Negative Final External Poct Urine Leukocyte Margarita* 07/25/2024 Negative Final External Poct Urine 07/25/2024 Negative Final Other Testing No results found. Return in about 1 month (around 01/10/2025) for follow up left hand pain and numbness. [facility] Office: [phone] This note is dictated with the use of M*Modal. Please note that this dictation was completed with computer voice recognition software. Quite often unanticipated grammatical, syntax, homophones, and other interpretive errors are inadvertently transcribed by the computer software. Please disregard these errors. Please excuse any errors that have escaped final proofreading. KIM Ortega 12/10/24 1540 documented in this encounterSouthern Ohio Medical CenterIguanaFix [facility] HospitalTxhiim03-11-0496 History of Present illness Narrative* ANDREA Oconnell - 12/02/2024 3:00 PM EDT Reason for Appointment: Patient ID: Jeannine Raygoza [...] nursing note reviewed. Exam conducted with a access specialist present. Vitals: Estimated body mass index is [...] them. Patient can also view results via [employer]. I reinforced importance of condom use for [...] DILATION AND CURETTAGE TONSILLECTOMY documented in this encounterSSM DePaul Health CenterStwsjmikan54-43-2052 History of Present illness Narrative* Jered Cramer, SOLUTION COORDINATOR-GAS PIT WORKER - 07/25/2024 3:20 PM EDT [address] [place] [facility] [address] Patient: Jeannine Raygoza Date of : 1990 [...] difficulty urinating or starting her stream at times.She especially noticed the right suprapubic pain when [...] past medical history, past social history, past surgicalhistory and problem list. Past Medical History: Diagnosis [...] BMI 24.80 kg/m Physical Exam Vitals reviewed. Commercial Property Manager present: Declined access specialist for pelvic exam. Constitutional: Appearance: Normal appearance. [...] LEE APRN-CNP 07/26/24 1219 documented [facility] History of Present illness Narrative* KIM Lee - 03/01/2024 8:40 AM EST [address] [facility] [id number] Patient: Jeannine Raygoza Date of : 1990 [...] physical therapy last Monday. She works at [employer] making [employer] and she is on her feet all day pushing and pulling heavy objects. She denies an injury happening at work but her work probably contributed to the low back pain. She also participates in [employer] which could have contributed to the low back pain. With the current measuresshe is using to control her back pain, [...] current visit Relevant Orders FLU VACCINE TS (6MOS UP)(PF) 45 MCG(15MCG [...] past medical history, past social history, past surgicalhistory and problem list. Past Medical History: Diagnosis Date Vaginitis Past Surgical History: Procedure Laterality Date APPENDECTOMY DILATION AND CURETTAGE OF UTERUS 2009 Current Outpatient Medications Medication Sig Dispense Refill lidocaine (LIDODERM) 5 % Place 1 patch on the skin daily. Remove & Discard patch within 12 hours or as directed by MD Padgett patch 0 Immunization, In Clinic, Inject into [...] LEE APRN-CNP 03/05/24 1403 documented in this encounterBlanchard Valley [facility]12-[facility] History of Present illness Narrative* KIM Lee - 02/01/2024 8:40 AM EST [address] [facility] [id number] Patient: Jeannine Raygoza Date of : 1990 Encounter Date: 02/01/2024 History of Present Illness: The patient is a 33 y.o. female, an established patient, and is here for No chief complaint on file. . 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 She denies her injury having at work. She feels it may have happened when she was lifting weights at the gym and she felt something in her back pull which was around . Patient has not lifted weight since . She went to the ER today for severe pain a 08/22 and received muscle relaxant, Toradol, Decadron,lidocaine patch. She is not sleeping well due to the pain. She states the pain also radiates down her right leg to her lateral thigh but denies numbness and tingling or weakness or loss of bowel or bladder control. She has also had to wear new work boots which may have contributed to the pain symptoms. Video Visit via Real-time Synchronous Audiovisual Provider Location: [facility] [address] [place] [facility] [address] Patient Location: Patient's home Video Visit Consent Statement: I discussed risks, benefits, and alternatives of a real-time synchronous audiovisual consultation with the patient (and any accompanying persons) including the risks that the patient's personal health details and medical records will be discussed over real-time, synchronous, interactive video/audio/telecommunication technology, the visit will not be recorded withoutthe express consent of both the provider and the patient, and that there are some limitations compared to [id number] evaluations. The patient consented to the presence of additional virtual and/or in-person participants. We elected to proceed. Problem List Items Addressed This Visit None Visit Diagnoses Acute right-sided low back pain with right-sided sciatica - Primary Relevant Orders X-ray spine lumbar 2 or 3 views (Completed) [facility] - [place], [place] Past Medical, Family, and Social History Update: The following portions of the patient's history were reviewed and updated as appropriate: allergies, current medications, past family history, past medical history, past social history, past surgicalhistory and problem list. Past Medical History: Diagnosis Date Vaginitis Past Surgical History: Procedure Laterality Date APPENDECTOMY DILATION AND CURETTAGE OF UTERUS 2009 Current Outpatient Medications Medication Sig Dispense Refill lidocaine (LIDODERM) 5 % Place 1 patch on the skin daily. Remove & Discard patch within 12 hours or as directed by 30 patch 0 naproxen sodium (ANAPROX DS) 550 mg tablet Take 1 tablet (550 mg total) by mouth in the morning and1 tablet (550 mg total) in the evening. Take with meals. Do all this for 30 doses. 30 tablet 0 orphenadrine (NORFLEX) 100 mg 12 hr tablet Take 1 tablet (100 mg total) by mouth in the morning and1 tablet (100 mg total) before bedtime. Do [...] lumbar 2 or 3 views; [facility] [place] [place]; Future Follow-up: Patient should continue the [...] if pain no better consider formal physical therapyand or further imaging. [id number] 23min KIM LEE APRN-CNP 02/05/24 1363 documented in this encounterBlanchard Valley Health [facility]10-16-[facility] History of Present illness Narrative* Angela Burks, BOOK AGENT - 11/29/2023 2:00 PM EDT Reason for Appointment: Patient ID: Jeannine Raygoza [...] nursing note reviewed. Exam conducted with a access specialist present. Vitals: Estimated body mass index is 25.42 kg/m as calculated from the following: Height as of 23: 5' 2 . Weight as of this [...] of: Dyana Alejo DO documented in this encounterSSM DePaul Health [id number] Evaluation note* Encounter Date Diagnosis Assessment Notes Treatment Notes Treatment Clinical Notes Mar, Acute pain of left foot (ICD-10 - M79.672) Mar,losed fracture of base of metatarsal bone of left foot with routine healing (ICD-10 - S92.302D) Xrays were reviewed with patient in detail. Patient may WBAT in a regular shoe. Patient can return to work on 04/13/2021 with no restictions. Call with any concerns or questions. [employer] Other Evaluation note* Diagnosis Well woman exam with routine gynecological exam Routine gynecological examination documented in this encounter [facility] HealthcareEvaluation note* Diagnosis Acute right-sided low back pain with right-sided sciatica- Primary Acute right-sided low back pain with right-sided sciatica documented in this encounter [facility]* Diagnosis Wellness examination- Primary Acute bilateral low back pain without sciatica Influenza vaccination administered at current visit Skin cancer screening Screening for malignant neoplasm of the skin Skin tags, multiple acquired documented in this encounter [facility] SystemEvaluation note* Diagnosis Suprapubic pain, acute- Primary UTI symptoms documented in this encounter [facility] SystemEvaluation note* Diagnosis Well woman exam with routine gynecological exam Routine gynecological examination documented in this encounter [facility] HealthcareEvaluation note* Diagnosis Numbness and tingling in both hands- Primary Strain of other flexor muscle, fascia and tendon at forearm level, left arm, initial encounter documented in this encounter [facility] SystemHistory general Narrative - Reported* Type Description Date Surgical History tonsillectomy and adenoidectomy Surgical HistoryappendectomyHospitalization Historysee above [employer] Other Instructions* Attachments The following attachments cannot be sent through Care Everywhere. * Back Exercises (Mosotho) * Low Back Pain Discharge Instructions (Mosotho) documented in this encounterFort [facility] Hospital [facility] Network SystemInstructions* Attachments The following attachments cannot be sent through Care Everywhere. * Flu vaccine (Mosotho) documented in this encounterFort Hamilton Hospital Kanob[facility] Network SystemInstructionsNot on file documented in this encounterFort Hamilton Hospital Kan[facility] Network SystemInstructions* Attachments The following attachments cannot be sent through Care Everywhere. * Carpal Tunnel Exercises (Mosotho) documented in this encounterSouthern Ohio Medical CenterSmartRx System Summary Purpose Family History No Family History [...] section and content) DATE CREATED AUTHOR 01/21/2020 [facility] DATE CREATED AUTHOR AUTHOR'S ORGANIZ ATION 02/28/2021 [facility] DATE CREATED AUTHOR AUTHOR'S ORGANIZ ATION 04/09/2021 [facility] DATE CREATED AUTHOR AUTHOR'S ORGANIZ ATION 03/04/2024 [facility] DATE CREATED AUTHOR AUTHOR'S ORGANIZ ATION 04/23/2024 [facility] DATE CREATED AUTHOR AUTHOR'S ORGANIZ ATION 12/03/2024 [facility] DATE CREATED AUTHOR AUTHOR'S ORGANIZ ATION 12/12/2024 [facility] REASON FOR VISIT (unrecogniz ed section and content) ReasonCommentsWell Women VisitReasonCommentsAnnual ExamReasonCommentsUrinary Tract InfectionPt has been feeling nausea and low groin pain right side. Neg preg couple weeks ago.ReasonCommentshands going numb X couple weeks Care Teams (unrecognized sec tion and content) Team MemberRelationshipSpecialtyStart DateEnd Date Ky Fox MD [address] [place] [address] PCP - [facility]09/15/22Te MemberRelationshipSpecialtyStart DateEnd Date Ky Fox MD [address], [place] [address] PCP - [facility]09/15/22Team MemberRelationshipSpecialtyStart DateEnd Date Jered Cramer, SOLUTION COORDINATOR-GAS PIT WORKER [address] [place] [address] PCP - [facility]12/15/23Te MemberRelationshipSpecialtyStart DateEnd Date Jered Cramer, SOLUTION COORDINATOR-GAS PIT WORKER [address] [place] [address] PCP - [facility]12/15/23Team MemberRelationshipSpecialtyStart DateEnd Date Ky Fox MD PCP - [facility]09/15/22Team MemberRelationshipSpecialtyStart DateEnd Date Ky Fox MD PCP - [facility]09/15/22Team MemberRelationshipSpecialtyStart DateEnd Date Ky Fox MD PCP - [facility]09/15/22Team MemberRelationshipSpecialtyStart DateEnd Date Jered Cramer, SOLUTION COORDINATOR-GAS PIT WORKER [address] [place] [address] [facility]CP - [facility]Luc[facility] Centerly Xxlamlgo30/1/24 FOR RECORDS PERTAINING TO PATIENTS WHO ARE [...] BE BASED ON THE PRIMARY CLINICAL RECORDS. [employer] [facility]. provides no warranty or guarantee of the accuracy or completeness of information in this document.
== END 2024-12-31 15:29 | disposition home or self-care (01) ==
LOC: LAB 15:28
PROVIDERS: PCP Obstetrics & Gynecology; Visit Provider Obstetrics & Gynecology
DX: R87.612 Low grade squamous intraepithelial lesion on cytologic smear of cervix (LGSIL) (principal)
CPT/HCPCS: 88305